=== PATIENT | male | born 1940 | race Caucasian/White ===

== ENCOUNTER 2016-07-30 18:12 | Inpatient (IN) | payer MEDICARE, BC ==
[2016-07-30 21:09] VITALS: BMI 29.1
[2016-07-31] MEDS ORDERED: CALCIUM CARBONATE 500 MG CHEWABLE PO PRN (00:13)
[2016-07-31] MEDS ORDERED: BISACODYL 10 MG SUPP RECTAL PRN (00:14)
[2016-07-31] MEDS ORDERED: ALPRAZolam 0.25 MG TAB PO PRN (00:15)
[2016-07-31] MEDS ORDERED: Acetaminophen-Codeine 300-30mg TAB PO PRN (00:38)
[2016-07-31] MEDS ORDERED: ALBUTEROL NEBULIZED 2.5 MG/3 ML INHALATION PRN (00:38)
[2016-07-31] MEDS ORDERED: ONDANSETRON ODT 4 MG TAB PO PRN (00:38)
[2016-07-31] MEDS ORDERED: MECLIZINE 25 MG TAB PO PRN (00:38)
[2016-07-31 01:36] LABS: Anisocytosis Moderate; Basophils # (A) 0.1 k/uL (0-0.2); Basophils % (A) 1 %; CH 32.3; CHCM 31.6; Eosinophils # (A) 0.2 k/uL (0-0.7); Eosinophils % (A) 2 %; HCT 29.7 % (39.0-53.0); HDW 3.02; HGB 9.4 gm/dL (13.0-17.5); Hypochromasia Slight; Luc # (Auto) 0.16; Luc % (Auto) 2; Lymphocytes # (A) 1.6 k/uL (1.0-4.8); Lymphocytes % (A) 19 %; MCH 32.1 pg (25.0-35.0); MCHC 31.5 g/dL (31.0-37.0); MCV 102.1 fL (80.0-100.0); Macrocytosis Moderate; Mean Platelet Volume 8.4; Monocytes # (A) 0.4 k/uL (0-1.0); Monocytes % (A) 4 %; Neutrophils # (A) 6.2 k/uL (1.3-7.7); Neutrophils % (A) 72 %; RBC 2.91 m/uL (4.30-5.90); RDW 20.7 % (11.5-15.5); WBC 8.5 k/uL (3.8-10.6); WBC (Perox) 9.31
[2016-07-31 01:48] LABS: Anion Gap 6 mmol/L; Blood Urea Nitrogen 26 mg/dL (9-20); Calcium 8.2 mg/dL (8.4-10.2); Carbon Dioxide 27 mmol/L (22-30); Chloride 102 mmol/L (98-107); Glucose 92 mg/dL (74-99); Non-African American GFR(MDRD) >60 (>60 ml/min/1.73 sqM); Potassium 3.8 mmol/L (3.5-5.1); Sodium 135 mmol/L (137-145)
[2016-07-31] MEDS ORDERED: IPRATROPIUM-ALBUTEROL 3 ML NEB INHALATION SCH (02:00)
[2016-07-31] MEDS: SODIUM CHLORIDE 0.9% 1,000 ML IV SCH ×2 (03:00→15:24)
[2016-07-31 06:59] LABS: Anisocytosis Moderate; Basophils # (A) 0.1 k/uL (0-0.2); Basophils % (A) 1 %; CH 32.4; CHCM 31.5; Eosinophils # (A) 0.2 k/uL (0-0.7); Eosinophils % (A) 3 %; HDW 3.01; HGB 9.4 gm/dL (13.0-17.5); Hypochromasia Slight; Luc # (Auto) 0.15; Luc % (Auto) 2; Lymphocytes # (A) 1.3 k/uL (1.0-4.8); Lymphocytes % (A) 18 %; MCH 32.3 pg (25.0-35.0); MCHC 31.4 g/dL (31.0-37.0); MCV 102.7 fL (80.0-100.0); Macrocytosis Moderate; Mean Platelet Volume 8.4; Monocytes # (A) 0.4 k/uL (0-1.0); Monocytes % (A) 6 %; Neutrophils # (A) 5.4 k/uL (1.3-7.7); Neutrophils % (A) 71 %; RBC 2.92 m/uL (4.30-5.90); RDW 20.8 % (11.5-15.5); WBC 7.6 k/uL (3.8-10.6); WBC (Perox) 8.04
[2016-07-31 07:20] LABS: Anion Gap 6 mmol/L; Blood Urea Nitrogen 23 mg/dL (9-20); Calcium 8.2 mg/dL (8.4-10.2); Carbon Dioxide 28 mmol/L (22-30); Chloride 102 mmol/L (98-107); Glucose 88 mg/dL (74-99); Non-African American GFR(MDRD) >60 (>60 ml/min/1.73 sqM); Potassium 3.9 mmol/L (3.5-5.1); Sodium 136 mmol/L (137-145)
[2016-07-31] MEDS ORDERED: TIOTROPIUM 18 MCG/PUFF INHALER INHALATION SCH (08:00)
[2016-07-31] MEDS: IPRATROPIUM-ALBUTEROL 3 ML NEB INHALATION SCH ×3 (08:17→20:56)
[2016-07-31] MEDS: ASPIRIN 325 MG TAB PO SCH (08:21)
[2016-07-31] MEDS: HEPARIN SODIUM,PORCINE 5,000 UNIT/ML 1 ML VIAL SQ SCH ×2 (08:21→20:30)
[2016-07-31] MEDS: PANTOPRAZOLE 40 MG/10 ML VIAL IVP SCH ×2 (08:22→20:30)
[2016-07-31] MEDS: ATORVASTATIN 40 MG TAB PO SCH (08:22)
[2016-07-31] MEDS: SERTRALINE 25 MG TAB PO SCH (08:22)
[2016-07-31] MEDS: GABAPENTIN 300 MG CAP PO SCH (08:22)
[2016-07-31] MEDS ORDERED: NON-FORMULARY DRUG (Omeprazole [Prilosec] 20 MG) PO SCH (09:00)
--- NOTE | 2016-07-31 09:19 | P.CRDCN ---
History of Present Illness Consult date: 07/31/16 Reason for Consult (text): syncope, hypotension Chief complaint: dizziness, syncope History of present illness: This is a pleasant 76-year-old male patient who follows with Dr. Kennedy in the office. 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 Continue the patient 2-3 weeks ago he fell at home after experiencing a dizziness but did not lose consciousness. He did not seek treatment at this time and continues to have ecchymosis to his left lower abdomen. The patient has been residing at a rehab facility at [facility] for approximately 2 weeks following a brief hospitalization for likely congestive heart failure was noticed to have lower extremity edema by a visiting nurse. Apparently yesterday, he was sitting up in his wheelchair visiting with his sister and a common area, says the lights in the room as well as a large fan began making him feel dizzy and he lost consciousness and had an episode of emesis. He does not know whether the emesis occurred prior to passing out or after. Upon presentation to [facility] patient's blood pressure was low at 80/40 and he received 1.5 L of normal saline, his blood pressure improved and was in the 90s systolic. While at [facility] patient did have a CT scan of the head without IV contrast that showed no acute intracranial process also had chest x-ray that showed enlarged cardiac silhouette with mild vascular congestion however his BNP level was not elevated at 41. Laboratory values show hemoglobin of 9.4, BUN 23 and creatinine 1.0. 2 sets of troponins have been negative. According to the patient his last pacemaker interrogation was approximately 3 months ago and as far as he knows there were no issues. He does not recall when his last echocardiogram was but says he likely had a stress test earlier this year upon examination this morning, patient is resting comfortably in bed and denies any further complaints of dizziness or syncope. He denies complaints of chest discomfort, palpitations or edema. Past Medical History Past Medical History: Asthma, Coronary Artery Disease (CAD), Chest Pain / Angina , COPD, Diabetes Mellitus, Eye Disorder, GERD/Reflux, Hypertension, Myocardial Infarction ([place]), Pneumonia, Rheumatoid Arthritis (RA), Skin Disorder Additional Past Medical History / Comment(s): partial blindness rt eye, hx bowel obstruction, hx pancreatitis, freq rashes, diet control diabetic, neuropathy Last Myocardial Infarction Date:: 1993 History of Any Multi-Drug Resistant Organisms: None Reported Past Surgical History: Cholecystectomy, Pacemaker Additional Past Surgical History / Comment(s): Right Carotid endarterectomy, Right knee arthroscopy, henri shoulder rotator cuff, rt cataract Past Anesthesia/Blood Transfusion Reactions: Motion Sickness Type of Cardiac Device: Unknown Device Placement Date:: 1998 Past Psychological History: Depression Smoking Status: Former smoker Past Alcohol Use History: Rare Additional Past Alcohol Use History / Comment(s): quit smoking 1993, smoked 2 PPD for 30 yrs Past Drug Use History: None Reported - Past Family History Mother Family Medical History: No Reported History Medications and Allergies Home Medications Medication Instructions Recorded Confirmed Type Albuterol Inhaler [Ventolin Hfa 2 puff INHALATION RT-Q6H PRN 04/12/14 07/30/16 History Inhaler] Hydrochlorothiazide [Hydrodiuril] 25 mg PO DAILY 04/12/14 07/30/16 History Omeprazole [PriLOSEC] 20 mg PO DAILY 04/12/14 07/30/16 History Losartan [Cozaar] 50 mg PO DAILY 09/19/15 07/30/16 History ALPRAZolam [Xanax] 0.25 mg PO BID PRN 07/30/16 07/30/16 History Acetaminophen-Codeine 300-30mg 1 tab PO Q6H PRN 07/30/16 07/30/16 History [Tylenol #3] Albuterol Nebulized [Ventolin 2.5 mg INHALATION RT-TID PRN 07/30/16 07/30/16 History Nebulized] Aspirin 325 mg PO DAILY 07/30/16 07/30/16 History Atorvastatin [Lipitor] 40 mg PO DAILY 07/30/16 07/30/16 History Bisacodyl [Dulcolax] 5 mg PO DAILY PRN 07/30/16 07/30/16 History Calcium Carbonate [Tums] 1,000 mg PO Q4H PRN 07/30/16 07/30/16 History Gabapentin [Neurontin] 300 mg PO DAILY 07/30/16 07/30/16 History Ipratropium-Albuterol Nebulize 3 ml INHALATION RT-Q6H 07/30/16 07/30/16 History [Duoneb 0.5 mg-3 mg/3 ml Soln] Meclizine [Antivert] 25 mg PO DAILY PRN 07/30/16 07/30/16 History Ondansetron [Zofran ODT] 4 mg SUBLINGUAL Q4H PRN 07/30/16 07/30/16 History Sertraline [Zoloft] 25 mg PO DAILY 07/30/16 07/30/16 History Tiotropium [place] [Spiriva] 1 cap INHALATION RT-DAILY 07/30/16 07/30/16 History Allergies Allergy/AdvReac Type Severity Reaction Status Date / Time influenza virus vaccine, Allergy Unknown Verified 07/30/16 21:50 specific morphine Allergy Unknown Verified 07/30/16 21:50 ketorolac tromethamine AdvReac Severe GI Bleed Verified 07/30/16 21:50 [From Toradol] hydromorphone HCl AdvReac Hallucinati Verified 07/30/16 21:50 [From Dilaudid] ons Physical Exam Vitals: Vital Signs Temp Pulse Pulse Resp BP Pulse Ox 07/31/16 08:29 62 07/31/16 08:17 62 07/31/16 04:00 97.9 F 60 17 103/56 92 L 07/31/16 00:00 97.4 F L 63 16 103/65 96 07/30/16 20:13 97.0 F L 71 17 98/55 98 Intake and Output 07/30/16 07/31/16 07/31/16 22:59 06:59 14:59 Intake Total 280 120 Output Total 350 655 350 Balance -350 -375 -230 Intake: Oral 280 120 Output: Drainage 30 Left Thigh 15 Right Thigh 15 Urine 350 625 350 Other: Voiding Method Indwelling Catheter # Voids 1 Weight 84.5 kg 84.5 kg PHYSICAL EXAMINATION: HEENT: Head is atraumatic, normocephalic. Pupils equal, round. Neck is supple. There is no elevated jugular venous pressure. HEART EXAMINATION: Heart sounds regular, S1 and S2 normal. No murmur or gallop heard. CHEST EXAMINATION: Lungs reveal scattered rhonchi throughout. No chest wall tenderness is noted on palpation or with deep breathing. ABDOMEN: Soft, nontender. Ecchymosis noted to left lower abdomen. Bowel sounds are heard. No organomegaly noted. Indwelling catheter is noted, attached to a leg bag. EXTREMITIES: 2+ peripheral pulses with no evidence of peripheral edema and no calf tenderness noted. Bilateral anterior upper thigh RILEY drains in place. NEUROLOGIC patient is awake, alert and oriented x3. . Results 07/31/16 06:36 07/31/16 06:36 Cardiac Enzymes 07/31/16 Range/Units 06:36 Troponin I <0.012 (0.000-0.034) ng/mL CBC 07/31/16 07/31/16 Range/Units 01:19 06:36 WBC 8.5 7.6 (3.8-10.6) k/uL RBC 2.91 L 2.92 L (4.30-5.90) m/uL Hgb 9.4 L 9.4 L (13.0-17.5) gm/dL Hct 29.7 L 30.0 L (39.0-53.0) % Plt Count 176 173 (150-450) k/uL Comprehensive Metabolic Panel 07/31/16 07/31/16 Range/Units 01:19 06:36 Sodium 135 L 136 L (137-145) mmol/L Potassium 3.8 3.9 (3.5-5.1) mmol/L Chloride 102 102 (98-107) mmol/L Carbon Dioxide 27 28 (22-30) mmol/L BUN 26 H 23 H (9-20) mg/dL Creatinine 1.10 1.00 (0.66-1.25) mg/dL Glucose 92 88 (74-99) mg/dL Calcium 8.2 L 8.2 L (8.4-10.2) mg/dL Current Medications Generic Name Dose Route Start Last Admin Trade Name Freq PRN Reason Stop Dose Admin Acetaminophen 650 mg 07/31/16 00:12 Tylenol Tab PO Q6HR PRN Fever and/ or Pain Acetaminophen/Codeine Phosphate 1 each 07/31/16 00:38 Tylenol #3 PO Q6H PRN Pain Albuterol Sulfate 2.5 mg 07/31/16 00:38 Ventolin Nebulized INHALATION RT-Q6H PRN Shortness Of Breath Albuterol/Ipratropium 3 ml 07/31/16 08:00 07/31/16 08:17 Duoneb 0.5 Mg-3 Mg/3 Ml Soln INHALATION 3 ml RT-TID DOYLE Administration Alprazolam 0.25 mg 07/31/16 00:15 Xanax PO BID PRN Anxiety Aspirin 325 mg 07/31/16 09:00 07/31/16 08:21 Aspirin PO 325 mg DAILY DOYLE Administration Atorvastatin Calcium 40 mg 07/31/16 09:00 07/31/16 08:22 Lipitor PO 40 mg DAILY DOYLE Administration Bisacodyl 10 mg 07/31/16 00:14 Dulcolax RECTAL DAILY PRN Constipation Calcium Carbonate/Glycine 1,000 mg 07/31/16 00:13 Tums PO QID PRN Heartburn Gabapentin 300 mg 07/31/16 09:00 07/31/16 08:22 Neurontin PO 300 mg DAILY DOYLE Administration Heparin Sodium (Porcine) 5,000 unit 07/31/16 09:00 07/31/16 08:21 Heparin SQ 5,000 unit Q12HR DOYLE Administration Sodium Chloride 1,000 mls @ 100 mls/hr 07/31/16 03:15 07/31/16 03:00 Saline 0.9% IV 100 mls/hr .Q10H DOYLE Administration Meclizine HCl 25 mg 07/31/16 00:38 Antivert PO DAILY PRN Nausea/Vertigo Ondansetron HCl 4 mg 07/31/16 00:38 Zofran Odt PO Q4H PRN Nausea Pantoprazole Sodium 40 mg 07/31/16 09:00 07/31/16 08:22 Protonix IVP 40 mg BID DOYLE Administration Sertraline HCl 25 mg 07/31/16 09:00 07/31/16 08:22 Zoloft PO 25 mg DAILY DOYLE Administration Intake and Output 07/30/16 07/31/16 07/31/16 22:59 06:59 14:59 Intake Total 280 120 Output Total 350 655 350 Balance -350 -375 -230 Intake: Oral 280 120 Output: Drainage 30 Left Thigh 15 Right Thigh 15 Urine 350 625 350 Other: Voiding Method Indwelling Catheter # Voids 1 Weight 84.5 kg 84.5 kg 07/31/16 06:36 07/31/16 06:36 Assessment and Plan Plan: Assessment and plan #1 loss of consciousness with emesis #2 hypotension with history of hypertension on multiple antihypertensive medications #3 chronic congestive heart failure, ejection fraction unknown at this time #4 sick sinus syndrome with pacemaker in place #5 Penile cancer with metastases to lymph nodes, status post surgical intervention #6 coronary artery disease From a cardiac standpoint, we will obtain a 2-D echo to assess LV function. We will check a d-dimer. Continue to hold antihypertensive medications at this time and continue IV fluid. Further recommendations to follow. CERNER ANALYST note has been reviewed, I agree with a documented findings and plan of care. Patient was seen and examined.
[2016-07-31] MEDS ORDERED: RX INFO: IV CONTRAST WAS GIVEN 1 EACH MISC MISCELLANE PRN (11:23)
--- NOTE | 2016-07-31 11:39 | P.PN ---
Progress Note - Text this is an addendum to the dictated cardiology consultation. The patient has a known history of coronary artery disease, post permanent pacemaker implantation who presented with a syncopal episode not associated with any chest pain, dyspnea or arrhythmia. Since his admission he is doing well, his blood pressure and heart rate has been stable without any evidence of permanent pacemaker malfunction. He has been followed by Dr. Almazan and according to him has been stable without significant problems. I do not have his prior workup available to me at this point. He recently underwent surgery for penile malignancy at [facility] and has been stable in that regard. He denies any PND orthopnea or peripheral edema. He had the episode of vomiting yesterday but it occurred after his syncopal episode. His d-dimer is mildly elevated, his troponin is negative. His EKG revealed normal sinus with dual chamber pacemaker activity. I will obtain a CT angiogram of the chest to rule out pulmonary embolism, we'll interrogate his pacemaker and I will obtain an echocardiogram with Doppler. Depending on the outcome of this testing further recommendations will be made. Thank you for this consult we will follow with you.
--- NOTE | 2016-07-31 12:37 | CT ---
EXAMINATION TYPE: CT angio chest DATE OF EXAM: 07/31/2016 12:21 PM COMPARISON: Prior CTA chest July 11, 2014. HISTORY: ELEVATED D-DIMER. Shortness of breath with history of pneumonia [address] DLP: 510 mGycm Automated exposure control for dose reduction was used. CONTRAST: CTA scan of the thorax is performed with IV Contrast, patient injected with 100 ML mL of Omnipaque 35 0, pulmonary embolism protocol. MIP images are created and reviewed. FINDINGS: LUNGS: There is background of moderate emphysematous change present bilaterally. There is some subple ural reticulation suggesting atelectatic change and/or mild interstitial edema most pronounced in the lower lungs. No suspicious parenchymal nodule or mass is present bilaterally. No pleural effusion or pneumothorax is seen bilaterally. Tracheobronchial tree is patent. MEDIASTINUM: There is satisfactory enhancement of the pulmonary artery and its branches, there is no CT evidence for pulmonary embolism. There are no greater than 1 cm hilar or mediastinal lymph nodes. There are stable prominent but subcentimeter prevascular, AP window, pericarinal, bilateral hilar, and subcarinal lymph nodes. No cardiomegaly or pericardial effusion is seen. There is redemonstration of multilead pacemaker/AICD. A moderate to large size fixed hiatal hernia is redemonstrated. OTHER: Osseous structures are demineralized. Multilevel spurring in the spine is redemonstrated. IMPRESSION: 1. NO CT EVIDENCE FOR PULMONARY EMBOLISM. 2. Moderate emphysematous change with mild interstitial fibrosis and edema felt present bilaterally. No suspicious focal infiltrate is seen.
[2016-07-31 13:27] LABS: Hemoglobin A1C 5.2 % (4.2-6.1)
--- NOTE | 2016-07-31 14:28 | HP ---
DATE OF ADMISSION: 07/30/2016 CHIEF COMPLAINT: Syncope and dehydration and shock. HISTORY OF PRESENT ILLNESS: This 77-year-old gentleman with a past medical history of multiple medical problems including asthma, CAD, history of chronic obstructive pulmonary disease, diabetes, GERD, hypertension, history of myocardial infarction, history of rheumatoid arthritis, being followed by Dr. Chaparro in [place] area was apparently in a rehab recently. The patient subsequently, patient had recurrent vomiting and patient presented with weakness and syncope to [facility]. The blood pressure 160/40 and 1.5 liters of normal saline was given. The blood pressure improved. The patient was transferred to [facility] direct admission at this time. There is no history of chest pain, no history of palpitation, no history of headache, loss of consciousness or seizures. PAST MEDICAL HISTORY: History of asthma, coronary artery disease, chest pain, COPD, diabetes mellitus, GERD, hypertension, history of myocardial infarction, rheumatoid arthritis, cholecystectomy, pacemaker. Medications prior to admission include: Home medications: 1. Spiriva 1 puff daily. 2. Zoloft 25 mg p.o. daily. 3. Zofran 4 mg sublingual p.r.n. 4. Prilosec 20 mg p.o. daily. 5. Antivert 25 mg daily p.r.n. 6. Cozaar 50 mg p.o. daily. 7. DuoNeb q.i.d. q.6. 8. HydroDIURIL 25 mg p.o. daily. 9. Neurontin 300 mg daily. 10. TUMS 1000 mg q.4 p.r.n. 11. Dulcolax 5 mg daily. 12. Lipitor 40 mg p.o. daily. 13. Aspirin 320 mg p.o. daily. 14. Ventolin 2.5 t.i.d. p.r.n. 15. Ventolin HFA 2 puffs q.6 p.r.n. 16. Tylenol #3 one tablet q6h p.r.n. 17. Xanax 0.25 b.i.d. p.r.n. ALLERGIES ARE INFLUENZA VIRUS, MORPHINE, KETOROLAC, DILAUDID. FAMILY HISTORY: history of heart disease and strokes in the family. SOCIAL HISTORY: Previous history of smoking, occasional alcohol intake. REVIEW OF SYSTEMS: ENT: Diminished hearing, diminished vision. CARDIOVASCULAR: No angina or palpitations. RESPIRATORY: As mentioned earlier. : As mentioned earlier. GI: No nausea. No vomiting. Allergy/immunology: No asthma or hayfever. MUSCULOSKELETAL: As mentioned earlier. HEMATOLOGY/ONCOLOGY: No asthma or hayfever. ENDOCRINE: No history of diabetes mellitus. No hypothyroidism. CONSTITUTIONAL: As mentioned earlier. DERMATOLOGY: Negative. RHEUMATOLOGY: Negative. PSYCHIATRY: As mentioned earlier. PHYSICAL EXAMINATION: Alert and oriented times two. Pulse 71. Blood pressure 98/50. Respiratory rate 17, temperature 97 degrees, pulse ox 98% on 2 L HEENT: Conjunctivae normal. Oral mucosa moist. NECK: No jugular venous distention. No carotid bruit. No lymph node enlargement. CARDIOVASCULAR: S1, S2 muffled. No S3, no S4. RESPIRATORY: Breath sounds diminished at the bases. No rhonchi. No crackles. ABDOMEN: Soft, nontender. No mass palpable. No guarding or rigidity. LEGS: No edema. No swelling. CENTRAL NERVOUS SYSTEM: Diffusely weak. LYMPHATICS: No lymph nodes palpable in the neck, axillae or groin. SKIN: No ulcer, rashes or bleeding. Joints: No active deformity. LABS: Not available. ASSESSMENT: 1. Syncope, possibly secondary from orthostatic hypotension. 2. Severe hypotension with hypovolemic shock secondary to dehydration. 3. Incessant vomiting, possible acute gastritis. 4. Generalized gait dysfunction. 5. History of asthma. 6. History of chronic obstructive pulmonary disease. 7. History of coronary artery disease. 8. Diabetes mellitus type 2. 9. Gastroesophageal reflux disease. 10. Hypertension. 11. Myocardial infarction. 12. History of pneumonia. 13. History of rheumatoid arthritis. 14. History of partial blindness. 15. History of pancreatitis. 16. Bowel resection. 17. History of cholecystectomy. 18. History of pacemaker. 19. History of right carotid endarterectomy. 20. History of depression. 21. History of remote history of nicotine dependence. 22. FULL CODE. RECOMMENDATIONS AND DISCUSSION: In this 76-year-old gentleman who presented with multiple complex medical issues, we will monitor the patient closely. Continue the medications. Continue symptomatic treatment. Continue with hydration, baseline labs. Repeat labs. Otherwise, consult cardiology to rule out the possibility of any acute coronary syndrome. Other than that, continue with the rest of the medications. Hold blood pressure medications at this time. Guarded prognosis because of multiple complex medical issues. Further recommendations to follow. A copy of dictation being forwarded to Dr. Chaparro who is the primary physician.
--- NOTE | 2016-07-31 16:06 | ECHOF ---
Referral Reason:syncope MEASUREMENTS -------- HEIGHT: 170.2 cm WEIGHT: 84.4 kg BP: 104/55 RVIDd: 3.8 cm (< 3.3) IVSd: 1.1 cm (0.6 - 1.1) LVIDd: 4.5 cm (3.9 - 5.3) LVPWd: 1.0 cm (0.6 - 1.1) IVSs: 1.3 cm LVIDs: 3.2 cm LVPWs: 1.4 cm LA Diam: 3.3 cm (2.7 - 3.8) LAESV Index (A-L): 39.74 ml/m Ao Diam: 3.1 cm (2.0 - 3.7) AV Cusp: 2.4 cm (1.5 - 2.6) MV EXCURSION: 16.269 mm (> 18.000) MV EF SLOPE: 60 mm/s (70 - 150) EPSS: 0.4 cm MV E James: 1.03 m/s MV DecT: 223 ms MV A James: 1.02 m/s MV E/A Ratio: 1.00 AV maxP.70 mmHg AV meanP.49 mmHg RAP: 5.00 mmHg RVSP: 57.46 mmHg FINDINGS -------- Sinus rhythm. Pacerwire seen in RV and RA. This was a technically good study. The left ventricular size is normal. There is borderline concentric left ventricular hypertrophy. Overall left ventricular systolic function is normal with, an EF between 55 - 60 %. The right ventricle is mild to moderately enlarged. LA is moderately dilated 34-39 ml/m2 The right atrium is normal in size. Aortic valve is trileaflet and is mildly thickened. Peak/mean gradient across the Aortic Valve is 11.70mmHg / 5.49mmHg. Mild mitral annular calcification present. Mild mitral regurgitation is present. Mild tricuspid regurgitation present. There is moderate pulmonary hypertension. The right ventricular systolic pressure, as measured by Doppler, is 57.46mmHg. Moderate pulmonic regurgitation. The aortic root size is normal. Normal inferior vena cava with normal inspiratory collapse consistent with estimated right atrial pressure of 5 mmHg. There is no pericardial effusion. CONCLUSIONS -------- 1. Sinus rhythm. 2. Mild mitral annular calcification present. 3. Mild mitral regurgitation is present. 4. Mild tricuspid regurgitation present. 5. There is moderate pulmonary hypertension. 6. Moderate pulmonic regurgitation. 7. The aortic root size is normal. 8. Normal inferior vena cava with normal inspiratory collapse consistent with estimated right atrial pressure of 5 mmHg. 9. There is no pericardial effusion. 10. Pacerwire seen in RV and RA. 11. This was a technically good study. 12. There is borderline concentric left ventricular hypertrophy. 13. Overall left ventricular systolic function is normal with, an EF between 55 - 60 %. 14. The right ventricle is mild to moderately enlarged. 15. LA is moderately dilated 34-39 ml/m2 16. Aortic valve is trileaflet and is mildly thickened. 17. Peak/mean gradient across the Aortic Valve is 11.70mmHg / 5.49mmHg. CLERICAL ASSIGNER: Mai Champagne RDCS
[2016-07-31] MEDS: ACETAMINOPHEN TAB 325 MG TAB PO PRN ×2 (16:39→23:30)
[2016-07-31 18:48] LABS: Appearance,Urine Clear (Clear); Bilirubin,Urine Negative (Negative); Glucose,Urine (UA) Negative (Negative); Ketones,Urine Negative (Negative); Leukocyte Esterase,Urine Negative (Negative); Mucus,Urine Rare /hpf; Nitrite,Urine Negative (Negative); PH, Urine 5.5 (5.0-8.0); Particle Count 2065; Protein,Urine 1+ (Negative); RBC,Urine 53 /hpf (0-5); Specific Gravity,Urine 1.032 (1.001-1.035); UA Billing (MACRO vs. MICRO) MICRO; Urobilinogen,Urine <2.0 mg/dL (<2.0); WBC,Urine 26 /hpf (0-5)
[2016-08-01] MEDS: SODIUM CHLORIDE 0.9% 1,000 ML IV SCH ×3 (02:29→21:31)
[2016-08-01 07:47] LABS: Anisocytosis Moderate; Basophils # (A) 0.1 k/uL (0-0.2); Basophils % (A) 1 %; CH 32.3; CHCM 31.4; Eosinophils # (A) 0.2 k/uL (0-0.7); Eosinophils % (A) 3 %; HCT 29.6 % (39.0-53.0); HDW 3.05; HGB 9.2 gm/dL (13.0-17.5); Hypochromasia Slight; Luc # (Auto) 0.15; Luc % (Auto) 2; Lymphocytes # (A) 1.3 k/uL (1.0-4.8); Lymphocytes % (A) 19 %; MCHC 31.2 g/dL (31.0-37.0); MCV 102.6 fL (80.0-100.0); Macrocytosis Moderate; Monocytes # (A) 0.3 k/uL (0-1.0); Monocytes % (A) 5 %; Neutrophils # (A) 4.8 k/uL (1.3-7.7); Neutrophils % (A) 70 %; RBC 2.88 m/uL (4.30-5.90); RDW 20.6 % (11.5-15.5); WBC 6.9 k/uL (3.8-10.6); WBC (Perox) 7.24
[2016-08-01 07:55] LABS: Anion Gap 7 mmol/L; Blood Urea Nitrogen 16 mg/dL (9-20); Calcium 7.6 mg/dL (8.4-10.2); Carbon Dioxide 26 mmol/L (22-30); Chloride 107 mmol/L (98-107); Glucose 84 mg/dL (74-99); Non-African American GFR(MDRD) >60 (>60 ml/min/1.73 sqM); Potassium 3.9 mmol/L (3.5-5.1); Sodium 140 mmol/L (137-145)
[2016-08-01] MEDS: IPRATROPIUM-ALBUTEROL 3 ML NEB INHALATION SCH ×3 (08:11→19:25)
[2016-08-01] MEDS: PANTOPRAZOLE 40 MG TABLET PO SCH ×2 (09:49→21:32)
[2016-08-01] MEDS: SERTRALINE 25 MG TAB PO SCH (09:49)
[2016-08-01] MEDS: GABAPENTIN 300 MG CAP PO SCH (09:49)
[2016-08-01] MEDS: ATORVASTATIN 40 MG TAB PO SCH (09:49)
[2016-08-01] MEDS: ASPIRIN 325 MG TAB PO SCH (09:49)
[2016-08-01] MEDS: HEPARIN SODIUM,PORCINE 5,000 UNIT/ML 1 ML VIAL SQ SCH ×2 (09:50→21:31)
--- NOTE | 2016-08-01 10:32 | PN ---
DATE OF SERVICE: 07/31/2016 This 76-year-old gentleman admitted with syncope and dehydration being closely monitored. The patient also had hypotension as well. The chest CT was done to rule out the possibility of pulmonary embolism, which showed moderate and mild interstitial fibrosis. No infiltrate was noted. 2-D echo with Doppler was also recommend. Cardiology is following the patient closely. The 2-D echocardiogram showed multiple valvular abnormalities and moderate pulmonary hypertension, moderate pulmonary regurgitation. Ejection fraction found to be 50 to 60%. LA was moderately dilated. PAST MEDICAL HISTORY: Reviewed. REVIEW OF SYSTEMS: CARDIOVASCULAR: No angina. RESPIRATORY: As mentioned earlier. GI: As mentioned earlier. : No dysuria. NERVOUS SYSTEM: No numbness or weakness. Current medications were reviewed and include: 1. Tylenol 650 q.6 p.r.n. 2. Tylenol #3. 3. Ventolin q.6. 4. DuoNeb t.i.d. and p.r.n. 5. Xanax 0.5 b.i.d. 6. Aspirin 325 mg. 7. Lipitor 40 mg daily. 8. Neurontin 300 mg daily. 9. Heparin subcu b.i.d. 10. Antivert. 11. Protonix. 12. Zoloft. PHYSICAL EXAMINATION: The patient is alert and oriented x2. Pulse 68, blood pressure 114/58, respirations 16, temperature 97 degrees, on 2-L. HEENT: Conjunctivae normal. NECK: No jugular venous distention. CARDIOVASCULAR: S1 and S2, muffled. RESPIRATORY: Breath sounds diminished at the bases. A few scattered rhonchi and crackles. ABDOMEN: Soft, nontender. No mass palpable. LEGS: No edema, no swelling. NERVOUS SYSTEM: Diffusely weak. LABS: WBC 7.6, hemoglobin 9.9, MCV 102, sodium is 136. Calcium is 8.2. ASSESSMENT: 1. Syncope, possibly secondary hypotension. 2. Severe hypotension with hypovolemia with shock secondary to dehydration. 3. Incessant vomiting, possible acute gastritis. 4. Generalized gait dysfunction. 5. History of asthma, chronic obstructive pulmonary disease. 6. History of coronary artery disease. 7. Diabetes education type 2. 8. Gastroesophageal reflux disease. 9. Hypertension. 10. Myocardial infarction. 11. History of recent penile cancer and surgery. 12. History of sick sinus syndrome and pacemaker. 13. History of pneumonia. 14. History of rheumatoid arthritis. 15. History of partial blindness. 16. History of pancreatitis. 17. History of bowel resection. 18. History of cholecystectomy. 19. History of pacemaker. 20. History of right carotid endarterectomy. 21. History of depression. 22. Remote history of nicotine dependence. 23. FULL CODE. RECOMMENDATIONS AND DISCUSSION: In this 76-year-old gentleman who presented with multiple complex medical issues, we will monitor the patient closely, continue the current medications. Continue symptomatic treatment. Otherwise, at this time I would recommend continue with IV hydration, increase ambulation, otherwise, cardiology input appreciated. I will also order a UA with micro. Prognosis guarded. Further recommendations to follow. MTDD
[2016-08-01 15:06] VITALS: RESP 16
--- NOTE | 2016-08-01 16:22 | PN ---
Mr. Resendiz is a 76-year-old male who presented with syncopal episode. He is feeling much better today. He has no further symptoms of syncope. On the monitor, he has no evidence of tachy or bradyarrhythmia. Interrogation of his device was done today, revealed normal sensing and pacing. He is ambulating in the room without difficulty. He denies any palpitation. No syncope. He continues to be at this time on albuterol, aspirin, Lipitor 40 mg daily. PHYSICAL EXAMINATION: Blood pressure 126/60 with a heart in the 70s. LUNGS: Clear. HEART: Regular rate and rhythm. S1 and S2, no S3, no rub appreciated. ABDOMEN: Soft and nontender. EXTREMITIES: No edema. Lab data revealed BUN and creatinine 16 and 0.9. Potassium 3.9. Hemoglobin 9.2. He had an echocardiogram done that showed a preserved left ventricular size and systolic function with mild mitral and tricuspid regurgitation and moderate pulmonary hypertension. IMPRESSION: 1. Syncopal episode of unclear etiology. No evidence of pacemaker malfunction and no evidence of tachyarrhythmia. 2. Status post permanent pacemaker implantation. 3. History of ( ) cancer with metastasis status post recent surgery. 4. History of coronary artery disease, stable. RECOMMENDATIONS: From the cardiac standpoint, he is stable on his present regimen. We will continue to increase his level of activity. His losartan is on hold and we will follow his blood pressure and depending on that, further recommendation to be made. If he remains stable, I would expect he should be able to be discharged home in the next 24 hours.
--- NOTE | 2016-08-01 20:34 | US ---
EXAMINATION TYPE: US venous doppler duplex LE LT DATE OF EXAM: 08/01/2016 8:23 PM COMPARISON: NONE CLINICAL HISTORY: Left thigh redness, warmth, edema, left thigh drainage tube. SIDE PERFORMED: VESSELS IMAGED: External Iliac Vein (EIV) Common Femoral Vein Deep Femoral Vein Greater Saphenous Vein * Femoral Vein Popliteal Vein Small Saphenous Vein * Proximal Calf Veins (* superficial vessels) TECHNOLOGIST IMPRESSION: Left Leg: Appears negative for DVT. At area of GSV, drainage tube seen in large anechoic lesion. IMPRESSION: In the left upper thigh region there is an cystic fluid collection that measures at leas t 10 cm in length and 2.5 cm in thickness. This is consistent with seroma or hematoma. There was no b lood flow. There is no evidence of deep venous thrombosis in both legs in the femoral and popliteal veins.
[2016-08-02] MEDS: SODIUM CHLORIDE 0.9% 1,000 ML IV SCH (02:00)
[2016-08-02] MEDS: IPRATROPIUM-ALBUTEROL 3 ML NEB INHALATION SCH ×2 (07:43→13:57)
[2016-08-02] MEDS: SERTRALINE 25 MG TAB PO SCH (07:52)
[2016-08-02] MEDS: PANTOPRAZOLE 40 MG TABLET PO SCH (07:52)
[2016-08-02] MEDS: ASPIRIN 325 MG TAB PO SCH (07:52)
[2016-08-02] MEDS: ATORVASTATIN 40 MG TAB PO SCH (07:52)
[2016-08-02] MEDS: HEPARIN SODIUM,PORCINE 5,000 UNIT/ML 1 ML VIAL SQ SCH (07:52)
[2016-08-02] MEDS: GABAPENTIN 300 MG CAP PO SCH (07:52)
[2016-08-02 07:54] LABS: Anisocytosis Moderate; Basophils # (A) 0.1 k/uL (0-0.2); Basophils % (A) 1 %; CH 32.2; CHCM 31.2; Eosinophils # (A) 0.2 k/uL (0-0.7); Eosinophils % (A) 4 %; HCT 28.2 % (39.0-53.0); HDW 3.05; Hypochromasia Moderate; Luc % (Auto) 2; Lymphocytes # (A) 1.2 k/uL (1.0-4.8); Lymphocytes % (A) 21 %; MCH 32.9 pg (25.0-35.0); MCHC 31.9 g/dL (31.0-37.0); MCV 103.2 fL (80.0-100.0); Macrocytosis Marked; Mean Platelet Volume 8.1; Monocytes # (A) 0.3 k/uL (0-1.0); Monocytes % (A) 5 %; Neutrophils # (A) 3.8 k/uL (1.3-7.7); Neutrophils % (A) 68 %; RBC 2.73 m/uL (4.30-5.90); RDW 20.7 % (11.5-15.5); WBC 5.6 k/uL (3.8-10.6); WBC (Perox) 5.92
[2016-08-02 08:03] LABS: Anion Gap 7 mmol/L; Blood Urea Nitrogen 10 mg/dL (9-20); Calcium 7.6 mg/dL (8.4-10.2); Carbon Dioxide 26 mmol/L (22-30); Chloride 110 mmol/L (98-107); Glucose 87 mg/dL (74-99); Non-African American GFR(MDRD) >60 (>60 ml/min/1.73 sqM); Potassium 4.2 mmol/L (3.5-5.1); Sodium 143 mmol/L (137-145)
[2016-08-02 10:22] LABS: Manual Review Performed
--- NOTE | 2016-08-02 10:52 | PN ---
DATE OF SERVICE: 08/01/2016 This 77-year-old gentleman was admitted with syncope and dehydration, being closely monitored. No chest pain, no palpitation, no fever. The patient is. The venous Doppler done today showed negative for any DVTs. On exam alert and oriented x3. Pulse is 79, blood pressure 152/70, respirations 16, temperature 97.9, pulse ox 94% on room air. HEENT: Conjunctivae normal. NECK: No jugular venous distention. CARDIOVASCULAR: S1 and S2, muffled. RESPIRATORY: Breath sounds diminished at the bases. No rhonchi, no crackles.. ABDOMEN: Soft, nontender. No mass palpable. LEGS: No edema, no swelling. NERVOUS SYSTEM: No focal deficits. Mild diffuse weakness.. LABS: WBC 6, hemoglobin 9.2, UA noted. ASSESSMENT: 1. Syncope, possibly secondary hypotension. 2. Severe hypotension with hypovolemic shock secondary to dehydration. and diminished p.o. intake. 3. Incessant vomiting, possible acute gastritis, present on admission. 4. Generalized gait dysfunction. 5. History of asthma, chronic obstructive pulmonary disease. 6. History of coronary artery disease. 7. Diabetes education type 2. 8. Gastroesophageal reflux disease. 9. Hypertension. 10. History of myocardial infarction. 11. History of recent penile cancer and surgery. 12. History of sick sinus syndrome and pacemaker. 13. History of pneumonia. 14. History of rheumatoid arthritis. 15. History of partial blindness. 16. History of pancreatitis. 17. History of bowel resection. 18. History of cholecystectomy. 19. History of pacemaker. 20. History of right carotid endarterectomy. 21. History of depression. 22. Remote history of nicotine dependence. 23. FULL CODE. RECOMMENDATIONS AND DISCUSSION: Recommend to continue the current medications, continue symptomatic treatment, continue with IV fluids, continue with monitoring. Closely follow with Cardiology. Guarded prognosis. Further recommendations to follow. MTDD
[2016-08-02 13:42] VITALS: BP 126/69; TEMP 97.6
[2016-08-02 14:12] VITALS: PULSE 64
--- NOTE | 2016-08-02 15:02 | DS ---
DATE OF ADMISSION: 07/30/2016 DATE OF DISCHARGE: FINAL DIAGNOSES: 1. Syncope, possibly secondary to hypotension. 2. Severe hypertension, hypovolemic shock secondary to dehydration, diminished p.o. intake. 3. Vomiting possible acute gastritis present on admission. 4. Generalized gait dysfunction. 5. Asthma, 6. Chronic obstructive pulmonary disease. 7. History of coronary artery disease. 8. Type 2 diabetes mellitus. 9. History of gastroesophageal reflux disease. 10. Hypertension. 11. History of myocardial infarction. 12. History of recent penile cancer surgery. 13. History of sick sinus syndrome and pacemaker. 14. History of pneumonia. 15. Rheumatoid arthritis. 16. History of partial blindness. 17. History of pancreatitis. 18. History of bowel resection. 19. History of cholecystectomy. 20. History of pacemaker. 21. History of right carotid endarterectomy. 22. History of depression. 23. Remote history of nicotine dependence. 24. FULL CODE. DISCHARGE DISPOSITION: The patient will be discharged in a stable condition with guarded prognosis. Total time taken 35 minutes. Discharge cleared at this time. The patient is stable. HISTORY OF PRESENT ILLNESS: This 77-year-old gentleman with a past medical history of multiple medical problems, recent resident of [facility] was admitted with underwent rehab in the [facility] and was admitted with syncope and severe dehydration, hypovolemia and other multiple medical problems as mentioned earlier. Treated symptomatically. Patient was seen by cardiology. Otherwise venous Doppler was Negative. Chest CT was also showing no evidence of pulmonary embolism. On exam, vital signs stable. CARDIOVASCULAR: S1, S2 muffled. RESPIRATORY: Abdomen: Soft, nontender. CENTRAL NERVOUS SYSTEM: No focal deficits. This patient will be discharged in stable condition with guarded prognosis with the following advice and medications: 1. Diet is cardiac. 2. Activity limited until follow up. 3. Follow-up with the primary physician in the outpatient setting. 4. Follow with [facility]. 5. Follow up with Dr. Chaparro as advised. 6. Medications will be Xanax 0.5 b.i.d. 7. Tylenol #3 q.6 p.r.n. 8. Albuterol updrafts q.i.d. and p.r.n. 9. Ecotrin 320 mg daily. 10. Lipitor 40 mg daily. 11. Dulcolax 12. Ecotrin 81 mg daily. 14. TUMS 15. Neurontin 300 mg daily. 16. Albuterol/Atrovent updrafts q.i.d. and p.r.n. 17. Antivert 25 mg p.r.n. 18. Zofran 4 mg p.r.n. 19. Protonix 40 mg p.o. b.i.d. 20. Zoloft 25 mg daily. 21. Spiriva 1 puff daily. MTDD
== END 2016-08-02 18:40 | DRG 872 ==
LOC: 6SEL 20:03 → 3SUR 08-01 14:13
PROVIDERS: ADMIT Hospitalist; ATTEND Hospitalist
DX: R57.1 Hypovolemic shock (principal); C77.9 Secondary and unspecified malignant neoplasm of lymph node, unspecified; E11.40 Type 2 diabetes mellitus with diabetic neuropathy, unspecified; I50.9 Heart failure, unspecified; I11.0 Hypertensive heart disease with heart failure; I27.2 Other secondary pulmonary hypertension; J44.9 Chronic obstructive pulmonary disease, unspecified; C60.9 Malignant neoplasm of penis, unspecified; M06.9 Rheumatoid arthritis, unspecified; I37.1 Nonrheumatic pulmonary valve insufficiency; K29.00 Acute gastritis without bleeding; R26.9 Unspecified abnormalities of gait and mobility; J45.909 Unspecified asthma, uncomplicated; I25.10 Atherosclerotic heart disease of native coronary artery without angina pectoris; K21.9 Gastro-esophageal reflux disease without esophagitis; I10 Essential (primary) hypertension; I25.2 Old myocardial infarction; H54.0 Blindness, both eyes; Z87.01 Personal history of pneumonia (recurrent); Z90.49 Acquired absence of other specified parts of digestive tract; Z95.0 Presence of cardiac pacemaker; Z87.891 Personal history of nicotine dependence; Z79.899 Other long term (current) drug therapy; F32.9 Major depressive disorder, single episode, unspecified; Z98.41 Cataract extraction status, right eye; Z88.5 Allergy status to narcotic agent; Z88.7 Allergy status to serum and vaccine; Z88.8 Allergy status to other drugs, medicaments and biological substances; Z79.82 Long term (current) use of aspirin
CPT/HCPCS: 71275; 80048; 81001; 83036; 84484; 85025; 85379; 93306; 94640

== ENCOUNTER 2017-12-03 08:20 | Observation (INO) | payer OTHER, MEDICARE ==
--- NOTE | 2017-12-03 08:40 | ED ---
General Adult HPI - General Chief complaint: Shortness of Breath Stated complaint: Chest Pain Time Seen by Provider: 12/03/17 08:20 Source: patient, EMS, RN notes reviewed Mode of arrival: EMS Limitations: no limitations - History of Present Illness Initial comments: This is a 77-year-old male who presents emergency department from [facility]. Patient states he went there because he had some chest pain throughout the night and some leg swelling in the right leg in particular. Patient states for a went to bed he had a couple hours of chest pain but it subsided slightly went to bed. Patient states he woke up about 2:00 in the morning and he was having some episodes of chest pain and he noted his right leg to be quite swollen and having some right calf pain so he decided to go to the emergency department. At [place] the evaluated him and determined that he needed further evaluation by hydroelectric station operator and sent the patient to [facility]. Patient denies any chest pain currently. Patient denies any difficulty breathing shortness breath per patient denies any episodes diaphoresis. Patient denies nausea vomiting diarrhea. Patient denies headache patient denies numbness weakness. Patient denies lightheadedness dizziness or near syncopal episode. Patient denies any abdominal pain patient denies nausea vomiting or diarrhea. - Related Data Home Medications Medication Instructions Recorded Confirmed Atorvastatin [Lipitor] 40 mg PO DAILY 07/30/16 07/30/16 Bisacodyl [Dulcolax] 5 mg PO DAILY PRN 07/30/16 07/30/16 Calcium Carbonate [Tums] 1,000 mg PO Q4H PRN 07/30/16 07/30/16 Gabapentin [Neurontin] 300 mg PO DAILY 07/30/16 07/30/16 Ipratropium-Albuterol Nebulize 3 ml INHALATION RT-Q6H 07/30/16 07/30/16 [Duoneb 0.5 mg-3 mg/3 ml Soln] Meclizine [Antivert] 25 mg PO DAILY PRN 07/30/16 07/30/16 Ondansetron [Zofran ODT] 4 mg SUBLINGUAL Q4H PRN 07/30/16 07/30/16 Sertraline [Zoloft] 25 mg PO DAILY 07/30/16 07/30/16 Tiotropium [place] [Spiriva] 1 cap INHALATION RT-DAILY 07/30/16 07/30/16 Previous Rx's Medication Instructions Recorded ALPRAZolam [Xanax] 0.25 mg PO BID PRN #10 tab 08/02/16 Acetaminophen-Codeine 300-30mg 1 tab PO Q6H PRN #20 tab 08/02/16 [Tylenol w/codeine #3] Albuterol Nebulized [Ventolin 2.5 mg INHALATION Q4H PRN #0 08/02/16 Nebulized] Aspirin EC [Ecotrin Low Dose] 81 mg PO DAILY #1 tablet. 08/02/16 Pantoprazole [Protonix] 40 mg PO BID tablet. 08/02/16 Allergies Allergy/AdvReac Type Severity Reaction Status Date / Time influenza virus vaccine, Allergy Unknown Verified 12/03/17 08:31 specific morphine Allergy Unknown Verified 12/03/17 08:31 ketorolac tromethamine AdvReac Severe GI Bleed Verified 12/03/17 08:31 [From Toradol] hydromorphone HCl AdvReac Hallucinati Verified 12/03/17 08:31 [From Dilaudid] ons Review of Systems ROS Statement: Those systems with pertinent positive or pertinent negative responses have been documented in the HPI. ROS Other: All systems not noted in ROS Statement are negative. Past Medical History Past Medical History: Asthma, Coronary Artery Disease (CAD), Chest Pain / Angina , COPD, Diabetes Mellitus, Eye Disorder, GERD/Reflux, Hypertension, Myocardial Infarction ([place]), Pneumonia, Rheumatoid Arthritis (RA), Skin Disorder Additional Past Medical History / Comment(s): partial blindness rt eye, hx bowel obstruction, hx pancreatitis, freq rashes, diet control diabetic, neuropathy Last Myocardial Infarction Date:: 1993 History of Any Multi-Drug Resistant Organisms: None Reported Past Surgical History: Cholecystectomy, Pacemaker Additional Past Surgical History / Comment(s): Right Carotid endarterectomy, Right knee arthroscopy, henri shoulder rotator cuff, rt cataract Past Anesthesia/Blood Transfusion Reactions: Motion Sickness Type of Cardiac Device: Unknown Device Placement Date:: 1998 Past Psychological History: Depression Smoking Status: Former smoker Past Alcohol Use History: Rare Past Drug Use History: None Reported - Past Family History Mother Family Medical History: No Reported History General Exam - General Exam Comments Initial Comments: GENERAL: Patient is well-developed and well-nourished. Patient is nontoxic and well- hydrated and is in mild distress. ENT: Neck is soft and supple. No significant lymphadenopathy is noted. Oropharynx is clear. Moist mucous membranes. Neck has full range of motion without eliciting any pain. EYES: The sclera were anicteric and conjunctiva were pink and moist. Extraocular movements were intact and pupils were equal round and reactive to light. Eyelids were unremarkable. PULMONARY: Unlabored respirations. Good breath sounds bilaterally. No audible rales rhonchi or wheezing was noted. CARDIOVASCULAR: There is a regular rate and rhythm without any murmurs gallops or rubs. ABDOMEN: Soft and nontender with normal bowel sounds. No palpable organomegaly was noted. There is no palpable pulsatile mass. SKIN: Skin is clear with no lesions or rashes and otherwise unremarkable. NEUROLOGIC: Patient is alert and oriented x3. Cranial nerves II through XII are grossly intact. Motor and sensory are also intact. Normal speech, volume and content. Symmetrical smile. MUSCULOSKELETAL: Normal extremities with adequate strength and full range of motion. Right leg has some edema and calf tenderness. LYMPHATICS: No significant lymphadenopathy is noted PSYCHIATRIC: Normal psychiatric evaluation. Limitations: no limitations Course Vital Signs 12/03/17 08:22 Temperature 97.5 F L Pulse Rate 62 Respiratory 18 Rate Blood Pressure 140/65 O2 Sat by Pulse 97 Oximetry Medical Decision Making - Medical Decision Making EKG shows a paced rhythm at [address] interval 280 QRS is 82 QT interval 422 QTC is 422. Patient's EKG shows no ST segment elevation or depression. I reviewed the labs EKG and x-rays from the other facility. I repeated the troponin and it was normal. Ultrasound of the leg showed no acute DVT. - Lab Data Lab Results 12/03/17 Range/Units 08:37 Troponin I <0.012 (0.000-0.034) ng/mL Disposition Clinical Impression: Chest pain, Pedal edema Disposition: ADMITTED IP TO THIS HOSP Referrals: Arjun Coelho MD [Primary Care Provider] - 1-2 days Time of Disposition: 09:50
[2017-12-03] MEDS ORDERED: NITROGLYCERIN SL TABS 0.4 MG TAB SUBLINGUAL PRN (09:50)
--- NOTE | 2017-12-03 10:13 | US ---
EXAMINATION TYPE: US venous doppler duplex LE RT DATE OF EXAM: 12/03/2017 10:07 AM COMPARISON: NONE CLINICAL HISTORY: Pain. SIDE PERFORMED: Right TECHNIQUE: The lower extremity deep venous system is examined utilizing real time linear array sonog dalia with graded compression, doppler sonography and color-flow sonography. VESSELS IMAGED: External Iliac Vein (EIV) Common Femoral Vein Deep Femoral Vein Greater Saphenous Vein * Femoral Vein Popliteal Vein Small Saphenous Vein * Proximal Calf Veins (* superficial vessels) Right Leg: Negative for DVT No popliteal fossa lesion is seen. IMPRESSION: THIS EXAMINATION IS NEGATIVE FOR DVT IN THE RIGHT LEG.
[2017-12-03 10:24] VITALS: TEMP 98.3
[2017-12-03 11:50] VITALS: BP 134/73; PULSE 53; RESP 17; BMI 30.5
[2017-12-03] MEDS ORDERED: NITROGLYCERIN OINT 1 INCH/GM PACKET TOPICAL SCH (12:00)
[2017-12-03 15:08] LABS: Creatine Kinase 60 U/L (55-170)
[2017-12-03 15:22] LABS: Creatine Kinase MB 1.3 ng/mL (0.0-2.4); Troponin I <0.012 ng/mL (0.000-0.034)
--- NOTE | 2017-12-03 15:26 | P.DS ---
Providers Date of admission: 12/03/17 09:50 Attending physician: Lb Rojo Consults: 12/03/17 09:50 Consult Physician Urgent Consulting Provider: [facility] Consult Reason/Comments: Chest pain Do you want consulting provider notified?: Yes Primary care physician: Arjun Coelho MD Hospital Course: as mentioned in HPI Plan - Discharge Summary Discharge Rx Participant: No New Discharge Prescriptions: No Action Atorvastatin [Lipitor] 40 mg PO DAILY Tiotropium [place] [Spiriva] 1 cap INHALATION RT-DAILY Aspirin EC [Ecotrin Low Dose] 81 mg PO DAILY #1 tablet. Albuterol Nebulized [Ventolin Nebulized] 2.5 mg INHALATION RT-Q4H PRN PRN Reason: Shortness Of Breath ALPRAZolam [Xanax] 0.5 mg PO DAILY Albuterol Inhaler [Ventolin Hfa Inhaler] 1 - 2 puff INHALATION RT-Q6H PRN PRN Reason: Shortness Of Breath Sertraline [Zoloft] 100 mg PO DAILY Omeprazole 20 mg PO DAILY Furosemide [Lasix] 20 mg PO DAILY Potassium Chloride [K-Tab ER] 10 meq PO DAILY Discharge Medication List Atorvastatin [Lipitor] 40 mg PO DAILY 07/30/16 [History] Tiotropium [place] [Spiriva] 1 cap INHALATION RT-DAILY 07/30/16 [History] Aspirin EC [Ecotrin Low Dose] 81 mg PO DAILY #1 tablet. 08/02/16 [Rx] ALPRAZolam [Xanax] 0.5 mg PO DAILY 12/03/17 [History] Albuterol Inhaler [Ventolin Hfa Inhaler] 1 - 2 puff INHALATION RT-Q6H PRN [History] Albuterol Nebulized [Ventolin Nebulized] 2.5 mg INHALATION RT-Q4H PRN 12/03/17 [ History] Furosemide [Lasix] 20 mg PO DAILY 12/03/17 [History] Omeprazole 20 mg PO DAILY 12/03/17 [History] Potassium Chloride [K-Tab ER] 10 meq PO DAILY 12/03/17 [History] Sertraline [Zoloft] 100 mg PO DAILY 12/03/17 [History] Follow up Appointment(s)/Referral(s): Arjun Coelho MD [Primary Care Provider] - 3 Days Ton Almazan MD [STAFF PHYSICIAN] - 3 Days Patient Instructions/Handouts: Chest Pain (DC), Edema (DC) Discharge Disposition: HOME SELF-CARE
--- NOTE | 2017-12-03 15:26 | P.HPIM ---
History of Present Illness 77-year-old gentleman with a known history of COPD on home oxygen at 2 L came in because the he ran out of power (electricity)at home and unable to use home oxygen. Presented to the [facility] patient was not in COPD exacerbation. During this hospital his hospitalization stay there patient complained about 3/ 10 brief three-minute left-sided chest pain pressure-like sensation nonradiating nonpleuritic not associated with food resolved without any medication EKG showed normal sinus rhythm patient was subsequently transferred to ER here and patient patient is admitted to rule out a concurrent syndromes here. Patient's second troponin is negative I repeated a third one which is negative as well as obtain a d-dimer which is minimally elevated although my concern for PE is extremely low and patient the symptoms are not consistent with PE. Patient is saturating at 88% without oxygen and patient was comparing of some dry cough without any sputum production chest x-ray did not show any pneumonic process of heart failure. Patient had a stress test about [address] Almazan's clinic. Patient will be discharged today to follow with Dr. Almazan in about 3-7 days. Will make sure patient has electric power supply at home today. Review of Systems REVIEW OF SYSTEMS: CONSTITUTIONAL: No fever, no malaise, no fatigue. HEENT: No recent visual problems or hearing problems. Denied any sore throat. CARDIOVASCULAR: No orthopnea, PND, no palpitations, no syncope. PULMONARY: no hemoptysis. GASTROINTESTINAL: No diarrhea, no nausea, no vomiting, no abdominal pain. Normoactive bowel sounds. NEUROLOGICAL: No headaches, no weakness, no numbness. HEMATOLOGICAL: Denies any bleeding or petechiae. GENITOURINARY: Denies any burning micturition, frequency, or urgency. MUSCULOSKELETAL/RHEUMATOLOGICAL: Denies any joint pain, swelling, or any muscle pain. ENDOCRINE: Denies any polyuria or polydipsia. The rest of the 14-point review of systems is negative. Past Medical History Past Medical History: Asthma, Coronary Artery Disease (CAD), Chest Pain / Angina , COPD, Diabetes Mellitus, Eye Disorder, GERD/Reflux, Hypertension, Myocardial Infarction ([place]), Pneumonia, Rheumatoid Arthritis (RA), Skin Disorder Additional Past Medical History / Comment(s): partial blindness rt eye, hx bowel obstruction, hx pancreatitis, freq rashes, diet control diabetic, neuropathy Last Myocardial Infarction Date:: 1993 History of Any Multi-Drug Resistant Organisms: None Reported Past Surgical History: Cholecystectomy, Pacemaker Additional Past Surgical History / Comment(s): Right Carotid endarterectomy, Right knee arthroscopy, henri shoulder rotator cuff, rt cataract Past Anesthesia/Blood Transfusion Reactions: Motion Sickness Type of Cardiac Device: Unknown Device Placement Date:: 1998 Past Psychological History: Depression Smoking Status: Former smoker Past Alcohol Use History: Rare Additional Past Alcohol Use History / Comment(s): quit smoking 1993, smoked 2 PPD for 30 yrs Past Drug Use History: None Reported - Past Family History Mother Family Medical History: No Reported History Medications and Allergies Home Medications Medication Instructions Recorded Confirmed Type Atorvastatin [Lipitor] 40 mg PO DAILY 07/30/16 12/03/17 History Tiotropium [place] [Spiriva] 1 cap INHALATION RT-DAILY 07/30/16 12/03/17 History Aspirin EC [Ecotrin Low Dose] 81 mg PO DAILY #1 tablet. 08/02/16 12/03/17 Rx ALPRAZolam [Xanax] 0.5 mg PO DAILY 12/03/17 12/03/17 History Albuterol Inhaler [Ventolin Hfa 1 - 2 puff INHALATION RT-Q6H PRN 12/03/17 History Inhaler] Albuterol Nebulized [Ventolin 2.5 mg INHALATION RT-Q4H PRN 12/03/17 12/03/17 History Nebulized] Furosemide [Lasix] 20 mg PO DAILY 12/03/17 12/03/17 History Omeprazole 20 mg PO DAILY 12/03/17 12/03/17 History Potassium Chloride [K-Tab ER] 10 meq PO DAILY 12/03/17 12/03/17 History Sertraline [Zoloft] 100 mg PO DAILY 12/03/17 12/03/17 History Allergies Allergy/AdvReac Type Severity Reaction Status Date / Time influenza virus vaccine, Allergy Unknown Verified 12/03/17 11:40 specific morphine Allergy Unknown Verified 12/03/17 11:40 ketorolac tromethamine AdvReac Severe GI Bleed Verified 12/03/17 11:40 [From Toradol] hydromorphone HCl AdvReac Hallucinati Verified 12/03/17 11:40 [From Dilaudid] ons Physical Exam Vitals: Vital Signs Temp Pulse Pulse Resp BP BP Pulse Ox 12/03/17 11:07 53 L 17 134/73 89 L 12/03/17 10:23 98.3 F 59 L 18 129/61 98 12/03/17 08:22 97.5 F L 62 18 140/65 97 Intake and Output 12/03/17 12/03/17 12/03/17 06:59 14:59 22:59 Other: Voiding Method Indwelling Catheter Weight 91.172 kg PHYSICAL EXAMINATION: GENERAL: The patient is alert and oriented x3, not in any acute distress. Well developed, well nourished. HEENT: Pupils are round and equally reacting to light. EOMI. No scleral icterus. No conjunctival pallor. Normocephalic, atraumatic. No pharyngeal erythema. No thyromegaly. CARDIOVASCULAR: S1 and S2 present. No murmurs, rubs, or gallops. PULMONARY: Chest is clear to auscultation, no wheezing or crackles. ABDOMEN: Soft, nontender, nondistended, normoactive bowel sounds. No palpable organomegaly. MUSCULOSKELETAL: No joint swelling or deformity. EXTREMITIES: No cyanosis, clubbing, or pedal edema. NEUROLOGICAL: Gross neurological examination did not reveal any focal deficits. SKIN: No rashes. Results Labs: Abnormal Lab Results - Last 24 Hours (Table) 12/03/17 Range/Units 14:26 D-Dimer 0.96 H (<0.60) mg/L FEU Thrombosis Risk Factor Assmnt - Choose All That Apply Each Factor Represents 1 point: Obesity (BMI >25), Swollen legs (current) Each Risk Factor Represents 3 Points: Age 75 years or older Other congenital or acquired thrombophilia - If yes, enter type in comment: No Thrombosis Risk Factor Assessment Total Risk Factor Score: 5 Thrombosis Risk Factor Assessment Level: High Risk Assessment and Plan Plan: -shortness of breath: Secondary to lack of oxygen supply at home. Further management as mentioned above patient is not in COPD exacerbation -chest pain noncardiac ruled out acute Opal syndromes and patient will be discharged as mentioned above. -type 2 diabetes mellitus -gastroesophageal reflux disease -Hypertension -rheumatoid arthritis -Previous history of smoking -depression Further management as mentioned above patient will follow up with PCP in about a week. Patient will be discharged today.
[2017-12-03 23:13] LABS: Hemoglobin A1C 5.7 % (4.0-6.0)
[2017-12-04] MEDS ORDERED: ASPIRIN 325 MG TAB PO SCH (09:00)
== END 2017-12-03 15:55 | disposition home or self-care (01) ==
LOC: EC 08:20 → 3OBS 09:50
PROVIDERS: ADMIT Internal Medicine; ATTEND Internal Medicine
DX: R07.89 Other chest pain (principal); R06.02 Shortness of breath; M79.89 Other specified soft tissue disorders; M79.661 Pain in right lower leg; Z99.81 Dependence on supplemental oxygen; R79.89 Other specified abnormal findings of blood chemistry; J44.9 Chronic obstructive pulmonary disease, unspecified; I25.10 Atherosclerotic heart disease of native coronary artery without angina pectoris; K21.9 Gastro-esophageal reflux disease without esophagitis; I10 Essential (primary) hypertension; I25.2 Old myocardial infarction; M06.9 Rheumatoid arthritis, unspecified; H54.61 Unqualified visual loss, right eye, normal vision left eye; E11.40 Type 2 diabetes mellitus with diabetic neuropathy, unspecified; F32.9 Major depressive disorder, single episode, unspecified; Z90.49 Acquired absence of other specified parts of digestive tract; Z87.01 Personal history of pneumonia (recurrent); Z95.0 Presence of cardiac pacemaker; Z87.891 Personal history of nicotine dependence; Z79.899 Other long term (current) drug therapy; Z79.82 Long term (current) use of aspirin; Z88.5 Allergy status to narcotic agent; Z88.7 Allergy status to serum and vaccine; Z88.8 Allergy status to other drugs, medicaments and biological substances; E66.9 Obesity, unspecified; Z68.30 Body mass index [BMI] 30.0-30.9, adult
CPT/HCPCS: 99285 ×2; 36415; 93005; 85379; 82550; 82553; 84484; 83036; 93971; G0378

== ENCOUNTER 2018-03-26 15:15 | Inpatient (IN) | payer MEDICARE ==
--- NOTE | 2018-03-26 15:33 | ED ---
GI Bleed HPI - General Stated complaint: UTI/hemoglobin Time Seen by Provider: 03/26/18 15:15 Source: patient, EMS, RN notes reviewed, old records reviewed Mode of arrival: EMS - History of Present Illness Initial comments: 70-year-old male who has a history of penile cancer history of peptic ulcer disease who is a suprapubic catheter who apparently came in to [facility] today he has some shortness of breath and groin pain was found have a hemoglobin 7.5 with heme positive stool. He also was found have a urinary tract infection. He was given 1 unit of blood and transferred here for further evaluation. He was given 750 mg of Levaquin IV he is on 2 L of oxygen which she normally is on at home for his COPD. Right now he states he denies any chest pain he still has some shortness of breath some groin area pain which he states feels chronic. No nausea vomiting. He states his stools have been intermittently brown and darker. No other modifying factors at this time he does state he is scheduled to have an appointment in [place] for evaluation of his catheter and penile cancer in 2 days. He did have a CAT scan done at [facility] show evidence of a hiatal hernia and evidence of bladder wall thickening due to distention versus cystitis. X-ray also showed mild perihilar interstitial prominence - Related Data Home Medications Medication Instructions Recorded Confirmed Atorvastatin [Lipitor] 40 mg PO DAILY 07/30/16 02/01/18 Tiotropium [place] [Spiriva] 1 cap INHALATION RT-DAILY 07/30/16 02/01/18 ALPRAZolam [Xanax] 0.5 mg PO DAILY 12/03/17 02/01/18 Albuterol Inhaler [Ventolin Hfa 1 - 2 puff INHALATION RT-Q6H PRN 12/03/17 Inhaler] Albuterol Nebulized [Ventolin 2.5 mg INHALATION RT-Q4H PRN 12/03/17 02/01/18 Nebulized] Sertraline [Zoloft] 100 mg PO DAILY 12/03/17 02/01/18 Previous Rx's Medication Instructions Recorded Aspirin EC [Ecotrin Low Dose] 81 mg PO DAILY #1 tablet. 08/02/16 Pantoprazole [Protonix] 40 mg PO AC-BRKFST #30 tablet. 02/03/18 Allergies Allergy/AdvReac Type Severity Reaction Status Date / Time influenza virus vaccine, Allergy Unknown Verified 02/01/18 11:03 specific morphine Allergy Unknown Verified 02/01/18 11:03 ketorolac tromethamine AdvReac Severe GI Bleed Verified 02/01/18 11:03 [From Toradol] hydromorphone HCl AdvReac Hallucinati Verified 02/01/18 11:03 [From Dilaudid] ons Review of Systems ROS Statement: Those systems with pertinent positive or pertinent negative responses have been documented in the HPI. ROS Other: All systems not noted in ROS Statement are negative. Past Medical History Past Medical History: Asthma, Coronary Artery Disease (CAD), Chest Pain / Angina , COPD, Diabetes Mellitus, Eye Disorder, GERD/Reflux, Hypertension, Myocardial Infarction ([place]), Pneumonia, Rheumatoid Arthritis (RA), Skin Disorder Additional Past Medical History / Comment(s): partial blindness rt eye, hx bowel obstruction, hx pancreatitis, freq rashes, diet control diabetic, neuropathy Last Myocardial Infarction Date:: 1993 History of Any Multi-Drug Resistant Organisms: None Reported Past Surgical History: Cholecystectomy, Pacemaker Additional Past Surgical History / Comment(s): Right Carotid endarterectomy, Right knee arthroscopy, henri shoulder rotator cuff, rt cataract Past Anesthesia/Blood Transfusion Reactions: Motion Sickness Type of Cardiac Device: Unknown Device Placement Date:: 1998 Past Psychological History: Depression Smoking Status: Former smoker Past Alcohol Use History: Rare Additional Past Alcohol Use History / Comment(s): quit smoking 1993, smoked 2 PPD for 30 yrs Past Drug Use History: None Reported - Past Family History Mother Family Medical History: No Reported History General Exam - General Exam Comments Initial Comments: This is a well-developed well-nourished awake alert oriented times 3 male Limitations: no limitations General appearance: alert Head exam: Present: atraumatic, normocephalic, normal inspection Eye exam: Present: PERRL, EOMI, other (Pale conjunctiva). Absent: scleral icterus, conjunctival injection, periorbital swelling Respiratory exam: Present: decreased breath sounds Cardiovascular Exam: Present: regular rate, normal rhythm, normal heart sounds. Absent: systolic murmur, diastolic murmur, rubs, gallop, clicks GI/Abdominal exam: Present: soft, tenderness (Mild epigastric discomfort palpation no guarding rebound masses or bruits), other (Suprapubic catheter in place no evidence of any drainage around the catheter. The patient states this is replaced this morning) Rectal exam: Present: deferred, other (HEENT positive stool per report from this morning's exam) exam: Present: other (Mild tenderness palpation over the scrotal region no masses no drainage or discharge seen) Extremities exam: Present: normal inspection, full ROM, normal capillary refill. Absent: tenderness, pedal edema, joint swelling, calf tenderness Back exam: Present: normal inspection Neurological exam: Present: alert, oriented X3, CN II-XII intact Psychiatric exam: Present: normal affect, normal mood Skin exam: Present: warm, dry, intact, pallor Course Vital Signs 03/26/18 15:28 Temperature 98.3 F Pulse Rate 71 Respiratory 16 Rate Blood Pressure 112/58 O2 Sat by Pulse 100 Oximetry Medical Decision Making - Medical Decision Making I did review the charting separately the patient from [facility]. Patient will be admitted for evaluation by GI. The case is discussed with Dr. Patel. Disposition Clinical Impression: GI bleed, Anemia, COPD (chronic obstructive pulmonary disease), Urinary tract infection Disposition: ADMITTED IP TO THIS HOSP Condition: Stable Referrals: Arjun Coelho MD [Primary Care Provider] - 1-2 days
[2018-03-26] MEDS ORDERED: NALOXONE 0.4 MG/ML 1 ML VIAL IV PRN (15:41)
[2018-03-26] MEDS ORDERED: ONDANSETRON 4 MG/2 ML VIAL IVP PRN (15:41)
[2018-03-26] MEDS ORDERED: ACETAMINOPHEN TAB 325 MG TAB PO PRN (15:41)
[2018-03-26] MEDS: IPRATROPIUM-ALBUTEROL 3 ML NEB INHALATION SCH ×2 (16:19→20:28)
[2018-03-26 17:04] VITALS: BMI 26.4
[2018-03-26] MEDS: SODIUM CHLORIDE 0.9% 1,000 ML IV SCH (18:08)
[2018-03-26] MEDS: PANTOPRAZOLE 40 MG/10 ML VIAL IV SCH (20:14)
[2018-03-26] MEDS: HYDROcodone/APAP 5-325MG 1 EACH TAB PO PRN (20:14)
[2018-03-26] MEDS ORDERED: IPRATROPIUM-ALBUTEROL 3 ML NEB INHALATION PRN (20:28)
[2018-03-26 22:25] LABS: Anisocytosis Moderate; Basophils # (A) 0.1 k/uL (0-0.2); Basophils % (A) 1 %; Eosinophils # (A) 0.1 k/uL (0-0.7); Eosinophils % (A) 2 %; HCT 26.5 % (39.0-53.0); HGB 7.9 gm/dL (13.0-17.5); Hypochromasia Marked; Lymphocytes # (A) 1.6 k/uL (1.0-4.8); Lymphocytes % (A) 21 %; MCH 24.7 pg (25.0-35.0); MCHC 29.7 g/dL (31.0-37.0); MCV 83.3 fL (80.0-100.0); Mean Platelet Volume 8.4; Microcytosis Slight; Monocytes # (A) 0.4 k/uL (0-1.0); Monocytes % (A) 6 %; Neutrophils % (A) 68 %; Platelet Count 296 k/uL (150-450); Poikilocytosis Moderate; RBC 3.18 m/uL (4.30-5.90); RDW 21.9 % (11.5-15.5); WBC 7.4 k/uL (3.8-10.6)
[2018-03-26 22:53] LABS: Anisocytosis (M) Present; Hypochromasia (M) Present; Poikilocytosis (M) Present; RBC Fragments Present; Target Cells Present
[2018-03-27] MEDS: HYDROcodone/APAP 5-325MG 1 EACH TAB PO PRN ×2 (04:13→13:25)
[2018-03-27 04:55] LABS: Glucose,Whole Blood 109 mg/dL (75-99)
[2018-03-27 06:59] LABS: Glucose,Whole Blood 104 mg/dL (75-99)
[2018-03-27] MEDS: IPRATROPIUM-ALBUTEROL 3 ML NEB INHALATION SCH ×4 (07:28→18:55)
[2018-03-27] MEDS: PANTOPRAZOLE 40 MG/10 ML VIAL IV SCH (07:57)
[2018-03-27] MEDS: SERTRALINE 100 MG TAB PO SCH (07:57)
[2018-03-27] MEDS: ATORVASTATIN 40 MG TAB PO SCH (07:58)
[2018-03-27] MEDS ORDERED: NON-FORMULARY DRUG (Tiotropium Bromide [Spiriva] 1 CAP) INHALATION SCH (08:00)
[2018-03-27] MEDS ORDERED: LEVOFLOXACIN 750MG-D5W PMX 750 MG in DEXTROSE/WATER 1 150ML.BAG IVPB SCH (09:00)
[2018-03-27 11:15] LABS: Glucose,Whole Blood 102 mg/dL (75-99)
[2018-03-27 12:45] LABS: Hemoglobin A1C 5.7 % (4.0-6.0)
[2018-03-27 16:28] LABS: Glucose,Whole Blood 163 mg/dL (75-99)
[2018-03-27] MEDS ORDERED: NON-FORMULARY DRUG (Omeprazole [Omeprazole] 20 MG) PO SCH (16:45)
[2018-03-27] MEDS ORDERED: FUROSEMIDE 10 MG/ML 4 ML VIAL IV SCH (16:45)
--- NOTE | 2018-03-27 16:55 | P.CONS ---
History of Present Illness - Reason for Consult Consult date: 03/27/18 Anemia, dark stool Requesting physician: Adam Patel - Chief Complaint Shortness breath, groin pain - History of Present Illness The patient is a 70-year-old male with multiple medical comorbidities including asthma, coronary artery disease, COPD, diabetes mellitus, GERD, hypertension, diabetes mellitus who presented to [facility] with complaints of shortness of breath and groin pain. The patient was found to have a urinary tract infection at that time, and also was found to be anemic with hemoglobin of 7.5 and was sent to [facility] for further evaluation. Currently the patient is on IV antibiotics for treatment of his UTI. Patient was found to be positive on FOBT. He does have a prior history of peptic ulcer disease however has had both upper endoscopy and lower endoscopy this year without any significant pathology. EGD in 01/2018 showed gastritis and duodenitis and colonoscopy on was normal. He is currently compliant with omeprazole 20 mg daily. The patient was previously hospitalized in January when he had the EGD and at that time was discharged with a hemoglobin of 7.9. He reports dark brown stool but denies any melena or hematochezia. He denies any nausea vomiting or hematemesis. He is on aspirin 81 mg daily but denies any other NSAID use. He did have a computed tomography scan at [facility] which was significant for bladder wall thickening and a hiatal hernia. Past endoscopic history:EGD in 01/2018 showed gastritis and duodenitis and colonoscopy on was normal. Social history: 30 years tobacco use with 2 packs per day, the patient quit in 1993. No illicit drug use reported. Family history: Noncontributory. Review of Systems REVIEW OF SYSTEMS: CARDIOPULMONARY: Denies chest pain or shortness of breath. GENITOURINARY: No dysuria or hematuria, the patient has a suprapubic catheter which is draining yellow urine. MUSCULOSKELETAL: No weakness reported. SKIN: Denies any new rashes or lesions, jaundice or pallor. PSYCHIATRIC: Denies any depression or anxiety. NEUROLOGY: Denies headache, denies any new focal deficits. EARS: No tinnitus, discharge or new hearing loss. NOSE: No discharge or congestion. EYES: No pain in eyes or change in vision. CONSTITUTIONAL: No recent weight loss. No fever, chills, night sweats. Past Medical History Past Medical History: Asthma, Coronary Artery Disease (CAD), Chest Pain / Angina , COPD, Diabetes Mellitus, Eye Disorder, GERD/Reflux, Hypertension, Myocardial Infarction ([place]), Pneumonia, Rheumatoid Arthritis (RA), Skin Disorder Additional Past Medical History / Comment(s): partial blindness rt eye, hx bowel obstruction, hx pancreatitis, freq rashes, diet control diabetic, neuropathy Last Myocardial Infarction Date:: 1994 History of Any Multi-Drug Resistant Organisms: None Reported Past Surgical History: Cholecystectomy, Pacemaker Additional Past Surgical History / Comment(s): Right Carotid endarterectomy, Right knee arthroscopy, henri shoulder rotator cuff, rt cataract Past Anesthesia/Blood Transfusion Reactions: Motion Sickness Type of Cardiac Device: Unknown Device Placement Date:: 1998 Past Psychological History: Depression Smoking Status: Former smoker Past Alcohol Use History: Rare Additional Past Alcohol Use History / Comment(s): quit smoking 1993, smoked 2 PPD for 30 yrs Past Drug Use History: None Reported - Past Family History Mother Family Medical History: No Reported History Medications and Allergies Home Medications Medication Instructions Recorded Confirmed Type Atorvastatin [Lipitor] 40 mg PO DAILY 07/30/16 03/26/18 History Tiotropium [place] [Spiriva] 1 cap INHALATION RT-DAILY 07/30/16 03/26/18 History Aspirin EC [Ecotrin Low Dose] 81 mg PO DAILY #1 tablet. 08/02/16 03/26/18 Rx ALPRAZolam [Xanax] 0.5 mg PO DAILY 12/03/17 03/26/18 History Albuterol Inhaler [Ventolin Hfa 1 - 2 puff INHALATION RT-Q6H PRN 12/03/17 History Inhaler] Albuterol Nebulized [Ventolin 2.5 mg INHALATION RT-Q4H PRN 12/03/17 03/26/18 History Nebulized] Sertraline [Zoloft] 100 mg PO DAILY 12/03/17 03/26/18 History Hydrochlorothiazide [Hydrodiuril] 25 mg PO DAILY 03/26/18 03/26/18 History Omeprazole 20 mg PO DAILY 03/26/18 03/26/18 History Allergies Allergy/AdvReac Type Severity Reaction Status Date / Time influenza virus vaccine, Allergy Unknown Verified 03/26/18 16:00 specific morphine Allergy Unknown Verified 03/26/18 16:00 ketorolac tromethamine AdvReac Severe GI Bleed Verified 03/26/18 16:00 [From Toradol] hydromorphone HCl AdvReac Hallucinati Verified 03/26/18 16:00 [From Dilaudid] ons Physical Exam Vitals: Vital Signs Temp Pulse Pulse Pulse Resp BP Pulse Ox 03/27/18 15:17 60 03/27/18 15:10 64 03/27/18 15:02 98.1 F 75 16 127/70 99 03/27/18 10:59 68 03/27/18 10:51 60 03/27/18 07:36 60 03/27/18 07:29 64 03/27/18 05:40 97.7 F 75 18 136/68 94 L 03/26/18 23:00 98.0 F 68 16 115/64 92 L 03/26/18 20:40 65 03/26/18 20:30 65 99 03/26/18 17:30 97.0 F L 81 20 119/56 99 Intake and Output 03/27/18 03/27/18 03/27/18 06:59 14:59 22:59 Intake Total 160 Output Total 1000 Balance -840 Intake: Intake, IV Titration 160 Amount Sodium Chloride 0.9% 1, 160 000 ml @ 20 mls/hr IV . Q24H [facility] Rx#:[id number] Output: Urine 1000 Other: Voiding Method Indwelling Catheter Indwelling Catheter Indwelling Catheter Weight 79 kg On physical examination, patient appears comfortable in no apparent distress. HEAD: Normocephalic, atraumatic. EYES: No scleral icterus. No conjunctival injection. MOUTH: No lesions, tongue midline. NECK: Trachea midline, no gross abnormalities. CHEST: Decreased air entry in all lung ribeiro, no wheezing appreciated, patient is on oxygen therapy. HEART: Regular rate and rhythm. ABDOMEN: Soft. Bowel sounds are positive. No organomegaly. No guarding or rigidity. EXTREMITIES: No pedal edema. SKIN: No rashes, no jaundice. Patient has a suprapubic catheter, intact with no associated skin changes. NEUROLOGIC: Alert and oriented x3. No focal deficits. Results CBC & Chem 7: 03/26/18 21:35 Labs: Abnormal Lab Results - Last 24 Hours (Table) 03/26/18 03/27/18 03/27/18 Range/Units 21:35 04:53 06:58 RBC 3.18 L (4.30-5.90) m/uL Hgb 7.9 L (13.0-17.5) gm/dL Hct 26.5 L (39.0-53.0) % MCH 24.7 L (25.0-35.0) pg MCHC 29.7 L (31.0-37.0) g/dL RDW 21.9 H (11.5-15.5) % POC Glucose (mg/dL) 109 H 104 H (75-99) mg/dL 18 03/27/18 Range/Units 11:14 16:27 RBC (4.30-5.90) m/uL Hgb (13.0-17.5) gm/dL Hct (39.0-53.0) % MCH (25.0-35.0) pg MCHC (31.0-37.0) g/dL RDW (11.5-15.5) % POC Glucose (mg/dL) 102 H 163 H (75-99) mg/dL CT scan - abdomen: report reviewed (Hiatal hernia with bladder wall thickening.) Assessment and Plan (1) Normocytic anemia Narrative/Plan: Likely anemia of chronic disease with the patient denying any signs or symptoms of GI bleeding. The patient was found to be FOBT positive on presentation, however hemoglobin is at baseline (same as discharge hemoglobin in January). In addition patient has had endoscopic evaluation with both EGD and colonoscopy this year and is on daily PPI therapy. Current Visit: Yes Status: Acute Code(s): D64.9 - ANEMIA, UNSPECIFIED SNOMED Code(s): 507475792 (2) History of peptic ulcer disease Narrative/Plan: Prior history of peptic ulcer disease. In January patient had EGD significant only for duodenitis and gastritis. Current Visit: Yes Status: Acute Code(s): Z87.11 - PERSONAL HISTORY OF PEPTIC ULCER DISEASE SNOMED Code(s): 504483189 (3) Gastritis and duodenitis Narrative/Plan: As above. Current Visit: Yes Status: Acute Code(s): K29.90 - GASTRODUODENITIS, UNSPECIFIED, WITHOUT BLEEDING SNOMED Code(s): 884216738 Plan: Okay for diet Continue to monitor hemoglobin and transfuse as needed Continue omeprazole daily as outpatient and Protonix daily as inpatient Continue supportive care No plans for endoscopic evaluation at this time If patient has acute fall in hemoglobin can consider capsule endoscopy or repeat upper endoscopy for evaluation, however hemoglobin is a discharge level from January Thank you for allowing us to participate in this care of this patient we will continue to follow
--- NOTE | 2018-03-27 17:21 | HP ---
HISTORY AND PHYSICAL DATE OF ADMISSION: March 26, 2018. DATE OF SERVICE: March 27, 2018. PRESENTING COMPLAINT: Pain in the pubic area, short of breath. HISTORY OF PRESENTING COMPLAINT: This is a very pleasant 78-year-old patient who was here over a month ago. At that time, patient presented with acute GI bleed, was found to have duodenitis and gastritis from being on aspirin. The patient did receive a unit of blood. The patient's chronic stable medical conditions include coronary artery disease, COPD, GERD, hypertension, peripheral neuropathy, and rheumatoid arthritis. The patient has also had a history of bladder cancer for which she follows at [facility]. The patient has a suprapubic catheter that is changed every month. The patient was due to follow up at [facility] tomorrow, but recently he has been having increasing abdominal pain in the groin area and finding it difficult to walk with the same. The patient presented to [facility] yesterday from where he was transferred here. The patient has been out of his inhalers and his COPD is getting worse and coming down. He has got a slight cough. No sputum, some wheezing. The patient does not have hematuria. REVIEW OF SYSTEMS: CONSTITUTIONAL: Tired. HEENT none. RESPIRATORY: As above. CARDIOVASCULAR none. GASTROINTESTINAL none. GENITOURINARY as above. MUSCULOSKELETAL: Pain in the joints. DERMATOLOGICAL, HEMATOLOGIC, LYMPHATICS: none. PSYCHIATRY none. NEUROLOGICAL: Uses a cane. PAST MEDICAL HISTORY: Coronary artery disease, COPD, diabetes, eye disorder, GERD, hypertension, rheumatoid arthritis, skin disorder, partial blindness right eye, bowel obstruction, history of pancreatitis, diet-controlled diabetic peripheral neuropathy, gastritis, duodenitis, bladder cancer with a suprapubic catheter. PAST SURGICAL HISTORY: Cholecystectomy, pacemaker, right carotid endarterectomy, right knee arthroscopy, bilateral shoulder rotator cuff surgery, bladder surgery with suprapubic catheter. SOCIAL HISTORY: Patient is . Smoked 2 packs a day for 30 years, stopped in 1993. Alcohol rarely. Lives alone. Does use a cane. FAMILY HISTORY: Reviewed, noncontributory to presentation. MEDICATIONS: 1. Spiriva 1 inhalation daily. 2. Zoloft 100 mg p.o. daily. 3. Omeprazole 20 mg p.o. daily. 4. Hydrochlorothiazide 25 mg p.o. daily. 5. Lipitor 40 mg p.o. daily. 6. Aspirin 81 mg p.o. daily. 7. Ventolin 2.5 q.4 p.r.n. 8. Ventolin HFA inhaler 1-2 puffs q.6h p.r.n. 9. Xanax 0.5 p.o. daily. ALLERGIES: INFLUENZA, MORPHINE, TORADOL, DILAUDID. PHYSICAL EXAMINATION: VITAL SIGNS: Vital signs on presentation, temperature 98.3, pulse 71, respirations 16, blood pressure 112/58, pulse ox 100 percent on 2 L. GENERAL APPEARANCE: Average build, lying in bed, tired-appearing. EYES: Pupils equal. Conjunctivae pale. HEENT: External appearance of nose and ears normal. Oral cavity normal. NECK: JVD not raised. Mass not palpable. RESPIRATORY: Effort increased. LUNGS: Diminished breath sounds. Questionable crackles. CARDIOVASCULAR: 1st and 2nd sounds normal. No edema. ABDOMEN: Soft. Mild suprapubic tenderness. Patient has a suprapubic catheter. Liver and spleen not palpable. LYMPHATICS: No lymph nodes palpable in the neck and axilla. PSYCHIATRY: Alert and oriented x3. Mood and affect normal. NEUROLOGICAL: Pupils equal. Cranial nerves grossly intact. Power and sensation grossly intact. MUSCULOSKELETAL: Evidence of osteoarthritis especially in the hands. INVESTIGATIONS: White count 7.4, hemoglobin 7.9, that is same from over a month ago. Platelets 296. Accu-Cheks are noted. CT scan of the abdomen at [facility] showed hiatal hernia, abdominal aortic aneurysm 3.4 cm in AP diameter and 4.1 cephalad, bladder wall thickening. Chest x-ray showed some mild fluid overload. The patient's last 2D echocardiogram from 2016 shows preserved LV function. ASSESSMENT: 1. Possible acute congestive heart failure from diastolic dysfunction in a patient with known coronary artery disease. 2. Chronic anemia from gastrointestinal blood loss. The patient has history of duodenitis and gastritis. 3. Coronary artery disease. 4. Chronic obstructive pulmonary disease in an ex-smoker with some exacerbation due to patient running out of his inhalers. 5. Gastroesophageal reflux disease. 6. Essential hypertension. 7. Peripheral neuropathy, idiopathic. 8. Rheumatoid arthritis, bilateral. 9. History of bladder cancer with surgery, now with a suprapubic catheter. 10.Abdominal aortic aneurysm 3.4 cm in the AP diameter and 4.1 cm cephalad. PLAN: Home medications are resumed. Patient will be put on DuoNeb. We will give the patient 1 dose of IV Lasix. The patient has canceled his appointment at [facility] for tomorrow. Will follow up next week. Care was discussed with the patient. Patient's hemoglobin appears to be rather stable. Gastroenterology consult had been ordered earlier. Copy to Dr. Coelho. RAMAL / NICKN: [id number] /
[2018-03-27] MEDS: SODIUM CHLORIDE 0.9% 1,000 ML IV SCH (17:26)
--- NOTE | 2018-03-27 17:44 | XR ---
EXAMINATION TYPE: XR chest 2V DATE OF EXAM: 03/27/2018 COMPARISON: Yesterday HISTORY: Short of breath TECHNIQUE: Frontal and lateral views of the chest are obtained. FINDINGS: There is mild pulmonary vascular congestion. There is left axillary pacemaker with the jevon d tips over the right ventricle. There is no pleural effusion. IMPRESSION: Pulmonary vascularity appears improved slightly compared to yesterday. Pulmonary interst itial fibrosis is also possible. This is consistent with improvement in congestive heart failure.
[2018-03-27] MEDS: ALPRAZolam 0.5 MG TAB PO SCH (17:51)
[2018-03-27] MEDS: BUDESONIDE 1 MG/2 ML NEBU INHALATION SCH (18:55)
[2018-03-27 20:10] LABS: Glucose,Whole Blood 128 mg/dL (75-99)
[2018-03-28 07:10] LABS: Glucose,Whole Blood 119 mg/dL (75-99)
[2018-03-28] MEDS: SERTRALINE 100 MG TAB PO SCH (07:18)
[2018-03-28] MEDS: ASPIRIN 81 MG PO SCH (07:18)
[2018-03-28] MEDS: ATORVASTATIN 40 MG TAB PO SCH (07:18)
[2018-03-28] MEDS: PANTOPRAZOLE 40 MG TABLET PO SCH (07:18)
[2018-03-28] MEDS: ALPRAZolam 0.5 MG TAB PO SCH (07:18)
[2018-03-28 07:41] LABS: Calcium 8.3 mg/dL (8.4-10.2)
[2018-03-28] MEDS: IPRATROPIUM-ALBUTEROL 3 ML NEB INHALATION SCH ×4 (08:33→19:48)
[2018-03-28] MEDS: BUDESONIDE 1 MG/2 ML NEBU INHALATION SCH ×2 (11:31→19:48)
[2018-03-28 12:05] LABS: Glucose,Whole Blood 114 mg/dL (75-99)
--- NOTE | 2018-03-28 12:54 | P.CRDCN ---
History of Present Illness History of present illness: Mr. Resendiz is a pleasant 78-year-old male past medical history significant for sick sinus syndrome s/p permanent pacemaker insertion, paroxysmal atrial fibrillation, hypertension, dyslipidemia, mild non- obstructive coronary artery disease, COPD and bladder and penile cancer. He follows with Dr. Almazan in the office. We have been asked to see him in consultation for shortness of breath. He states he presented to the hospital in [place] with symptoms of lower abdominal pain and GI bleeding. Hgb there was 7.5 and he was hemeoccult positive. He states he has been short of breath for the previous year with mild progression over time. He states he wears oxygen at home at night. He denies chest pain, increased dyspnea with exertion, PND, orthopnea, dizziness, palpitations, nausea, vomiting or diaphoresis. Chest x-ray reveals improved pulmonary vascularity compared to yesterday, pulmonary interstitial fibrosis is a possibility. There is no EKG for evaluation. Laboratory data reviewed, sodium 136, potassium 4.0, creatinine 0.95, proBNP 589, hemoglobin 7.9, platelets 296. Current cardiac medications include aspirin 81 mg daily, atorvastatin 40 mg daily, hydrochlorothiazide 25 mg daily. He also takes Xanax, Ventolin, omeprazole, Zoloft and three-vessel. He recently saw Dr. Almazan in the office in September prior to undergoing urologic surgery at the [facility]. At that time he underwent a Lexiscan stress test which was negative for stress-induced cardiac ischemia with evidence of a fixed inferior wall defect secondary to soft tissue attenuation. Most recent echocardiogram performed November 2016 revealed a normal left ventricular systolic function with mild pulmonary hypertension. Review of Systems At the time of my exam: CONSTITUTIONAL: Denies fever. Denies chills. EYES: Denies blurred vision. Denies vision changes. Denies eye pain. EARS, NOSE, MOUTH & THROAT: Denies headache. Denies sore throat. Denies ear pain. CARDIOVASCULAR: Denies chest pain. Denies shortness of breath. Denies orthopnea. Denies PND. Denies palpitations. RESPIRATORY: Denies cough. GASTROINTESTINAL: Denies abdominal pain. Denies diarrhea. Denies constipation. Denies nausea. Denies vomiting. MUSCULOSKELETAL: Denies myalgias. INTEGUMENTARY: Denies pruitis. Denies rash. NEUROLOGIC: Denies numbness. Denies tingling. Denies weakness. PSYCHIATRIC: Denies anxiety. Denies depression. ENDOCRINE: Denies fatigue. Denies weight change. Denies polydipsia. Denies polyurina. GENITOURINARY: Denies burning, hematuria or urgency with micturation. HEMATOLOGIC: Denies history of anemia. Denies bleeding. Past Medical History Past Medical History: Asthma, Coronary Artery Disease (CAD), Chest Pain / Angina , COPD, Diabetes Mellitus, Eye Disorder, GERD/Reflux, Hypertension, Myocardial Infarction (ID), Pneumonia, Rheumatoid Arthritis (RA), Skin Disorder Additional Past Medical History / Comment(s): partial blindness rt eye, hx bowel obstruction, hx pancreatitis, freq rashes, diet control diabetic, neuropathy Last Myocardial Infarction Date:: 1994 History of Any Multi-Drug Resistant Organisms: None Reported Past Surgical History: Cholecystectomy, Pacemaker Additional Past Surgical History / Comment(s): Right Carotid endarterectomy, Right knee arthroscopy, henri shoulder rotator cuff, rt cataract Past Anesthesia/Blood Transfusion Reactions: Motion Sickness Type of Cardiac Device: Unknown Device Placement Date:: 1998 Past Psychological History: Depression Smoking Status: Former smoker Past Alcohol Use History: Rare Additional Past Alcohol Use History / Comment(s): quit smoking 1993, smoked 2 PPD for 30 yrs Past Drug Use History: None Reported - Past Family History Mother Family Medical History: No Reported History Medications and Allergies Home Medications Medication Instructions Recorded Confirmed Type Atorvastatin [Lipitor] 40 mg PO DAILY 07/30/16 03/26/18 History Tiotropium [place] [Spiriva] 1 cap INHALATION RT-DAILY 07/30/16 03/26/18 History Aspirin EC [Ecotrin Low Dose] 81 mg PO DAILY #1 tablet. 08/02/16 03/26/18 Rx ALPRAZolam [Xanax] 0.5 mg PO DAILY 12/03/17 03/26/18 History Albuterol Inhaler [Ventolin Hfa 1 - 2 puff INHALATION RT-Q6H PRN 12/03/17 History Inhaler] Albuterol Nebulized [Ventolin 2.5 mg INHALATION RT-Q4H PRN 12/03/17 03/26/18 History Nebulized] Sertraline [Zoloft] 100 mg PO DAILY 12/03/17 03/26/18 History Hydrochlorothiazide [Hydrodiuril] 25 mg PO DAILY 03/26/18 03/26/18 History Omeprazole 20 mg PO DAILY 03/26/18 03/26/18 History Allergies Allergy/AdvReac Type Severity Reaction Status Date / Time influenza virus vaccine, Allergy Unknown Verified 03/26/18 16:00 specific morphine Allergy Unknown Verified 03/26/18 16:00 ketorolac tromethamine AdvReac Severe GI Bleed Verified 03/26/18 16:00 [From Toradol] hydromorphone HCl AdvReac Hallucinati Verified 03/26/18 16:00 [From Dilaudid] ons Physical Exam Vitals: Vital Signs Temp Pulse Pulse Resp BP Pulse Ox 03/28/18 11:45 72 03/28/18 11:32 72 03/28/18 05:00 97.3 F L 66 16 120/59 96 03/27/18 21:00 97.3 F L 96 16 109/74 95 03/27/18 19:05 92 03/27/18 18:56 88 03/27/18 15:17 60 03/27/18 15:10 64 03/27/18 15:02 98.1 F 75 16 127/70 99 Intake and Output 03/27/18 03/28/18 03/28/18 22:59 06:59 14:59 Intake Total 80 Output Total 1300 Balance 80 -1300 Intake: IV 80 Sodium Chloride 0.9% 1, 80 000 ml @ 20 mls/hr IV . Q24H [facility] Rx#:[id number] Output: Urine 1300 Other: Voiding Method Indwelling Catheter Indwelling Catheter Weight 80 kg Blood pressure 120/59 heart rate 66 afebrile maintaining oxygen saturation on nasal cannula 3 L GENERAL: This is a 78-year-old male in no apparent distress at the time of my examination. HEENT: Head is atraumatic, normocephalic. Pupils are equal, round. Sclerae anicteric. Conjunctivae are clear. Mucous membranes of the mouth are moist. Neck is supple. There is no jugular venous distention. No carotid bruit is heard. LUNGS: Faint bibasilar rales noted. No wheezes or rhonchi. No chest wall tenderness is noted on palpation or with deep breathing. HEART: Regular rate and rhythm without murmurs, rubs or gallops. S1 and S2 heard. ABDOMEN: Soft, nontender. Bowel sounds are heard. No organomegaly noted. Urinary catheter in place. EXTREMITIES: No evidence of peripheral edema and no calf tenderness noted. VASCULAR: Radial and dorsalis pedis pulses palpated, no evidence of clubbing. NEUROLOGIC: Patient is awake, alert and oriented x3. Results 03/26/18 21:35 03/28/18 07:04 Comprehensive Metabolic Panel 03/28/18 Range/Units 07:04 Sodium 136 L (137-145) mmol/L Potassium 4.0 (3.5-5.1) mmol/L Chloride 103 (98-107) mmol/L Carbon Dioxide 27 (22-30) mmol/L BUN 11 (9-20) mg/dL Creatinine 0.95 (0.66-1.25) mg/dL Glucose 95 (74-99) mg/dL Calcium 8.3 L (8.4-10.2) mg/dL Current Medications Generic Name Dose Route Start Last Admin Trade Name Freq PRN Reason Stop Dose Admin Acetaminophen 650 mg 03/26/18 15:41 Tylenol Tab PO Q6HR PRN Mild Pain or Fever > 100.5 Hydrocodone Bitart/Acetaminophen 1 each 03/26/18 19:24 03/27/18 13:25 [place] 5-325 PO 1 each Q8HR PRN Administration Pain Albuterol/Ipratropium 3 ml 03/26/18 20:28 Duoneb 0.5 Mg-3 Mg/3 Ml Soln INHALATION RT-QID PRN Shortness Of Breath Or Wheezing Albuterol/Ipratropium 3 ml 03/27/18 08:00 03/28/18 11:31 Duoneb 0.5 Mg-3 Mg/3 Ml Soln INHALATION 3 ml RT-QID [facility] Administration Alprazolam 0.5 mg 03/27/18 16:45 03/28/18 07:18 Xanax PO 0.5 mg DAILY [facility] Administration Aspirin 81 mg 03/28/18 09:00 03/28/18 07:18 Aspirin PO 81 mg DAILY DO[facility] Administration Atorvastatin Cal[place] 40 mg 03/27/18 09:00 03/28/18 07:18 Lipitor PO 40 mg DAILY DO[facility] Administration Budesonide 1 mg 03/27/18 20:00 03/28/18 11:31 Pulmicort INHALATION 1 mg RT-BID DOYLE Administration Sodium Chloride 1,000 mls @ 20 mls/hr 03/26/18 15:45 03/27/18 17:26 Saline 0.9% IV Not Given .Q24H [facility] Naloxone HCl 0.2 mg 03/26/18 15:41 Narcan IV Q2M PRN Opioid Reversal Ondansetron HCl 4 mg 03/26/18 15:41 Zofran IVP Q8HR PRN Nausea And Vomiting Pantoprazole Sodium 40 mg 03/28/18 07:30 03/28/18 07:18 Protonix PO 40 mg AC-BRKFST DOYLE Administration Sertraline HCl 100 mg 03/27/18 09:00 03/28/18 07:18 Zoloft PO 100 mg DAILY DOYLE Administration Intake and Output 03/27/18 03/28/18 03/28/18 22:59 06:59 14:59 Intake Total 80 Output Total 1300 Balance 80 -1300 Intake: IV 80 Sodium Chloride 0.9% 1, 80 000 ml @ 20 mls/hr IV . Q24H [facility] Rx#:[id number] Output: Urine 1300 Other: Voiding Method Indwelling Catheter Indwelling Catheter Weight 80 kg 03/26/18 21:35 03/28/18 07:04 Assessment and Plan Assessment: ASSESSMENT Shortness of breath. May be related to anemia upon admission requiring blood transfusion as well as chronic COPD. Paroxysmal atrial fibrillation not on long-term anticoagulation contraindication due to risk of bleeding. Currently in sinus mechanism per auscultation. Acute GI bleed, GI following. History of sick sinus syndrome status post permanent pacemaker implantation Hypertension COPD Diabetes mellitus Carotid artery disease Dyslipidemia Urinary tract infection History of urologic cancer PLAN Obtain 2-D echocardiogram and Doppler study to assess cardiac structure and function. Obtain baseline EKG. No overt symptoms of acute heart failure exacerbation. Normal BNP, no evidence of lower extremity edema, no PND, no orthopnea and denies exertional shortness of breath. Resume his home dose of hydrochlorothiazide 25 mg daily. Thank you kindly for this consultation. Nurse Practitioner note has been reviewed, I agree with a documented findings and plan of care. Patient was seen and examined.
--- NOTE | 2018-03-28 12:57 | ECHOF ---
Referral Reason:chf MEASUREMENTS -------- HEIGHT: 172.7 cm WEIGHT: 79.8 kg BP: 120/59 RVIDd: 2.9 cm (< 3.3) IVSd: 1.1 cm (0.6 - 1.1) LVIDd: 3.6 cm (3.9 - 5.3) LVPWd: 1.2 cm (0.6 - 1.1) IVSs: 1.4 cm LVIDs: 2.3 cm LVPWs: 1.3 cm LAESV Index (A-L): 26.78 ml/m Ao Diam: 2.7 cm (2.0 - 3.7) AV Cusp: 1.9 cm (1.5 - 2.6) LA Diam: 3.2 cm (2.7 - 3.8) MV EXCURSION: 21.518 mm (> 18.000) MV EF SLOPE: 92 mm/s (70 - 150) EPSS: 0.5 cm MV E James: 0.59 m/s MV DecT: 265 ms MV A James: 0.92 m/s MV E/A Ratio: 0.64 RAP: 5.00 mmHg RVSP: 50.82 mmHg FINDINGS -------- Sinus rhythm. Paced rhythm. This was a technically adequate study. The left ventricular size is normal. There is mild concentric left ventricular hypertrophy. Overa ll left ventricular systolic function is normal with, an EF between 55 - 60 %. The right ventricle is normal in size. The left atrial size is normal. The right atrial size is normal. There is mild aortic valve sclerosis. There is no evidence of aortic regurgitation. Mild mitral annular calcification present. Mild mitral regurgitation is present. Mild tricuspid regurgitation present. There is moderate pulmonary hypertension. The right ventric ular systolic pressure, as measured by Doppler, is 50.82mmHg. Trace/mild (physiologic) pulmonic regurgitation. The aortic root size is normal. There is no pericardial effusion. CONCLUSIONS -------- 1. Sinus rhythm. 2. The left ventricular size is normal. 3. There is mild concentric left ventricular hypertrophy. 4. Overall left ventricular systolic function is normal with, an EF between 55 - 60 %. 5. The left atrial size is normal. 6. The right atrial size is normal. 7. There is mild aortic valve sclerosis. 8. Mild mitral annular calcification present. 9. Mild mitral regurgitation is present. 10. Mild tricuspid regurgitation present. 11. There is moderate pulmonary hypertension. 12. Trace/mild (physiologic) pulmonic regurgitation. 13. The aortic root size is normal. 14. There is no pericardial effusion. FIRE ALARM OPERATOR: Alis Green RDCS
[2018-03-28] MEDS: HYDROCHLOROTHIAZIDE 25 MG TAB PO SCH (13:32)
[2018-03-28] MEDS: SODIUM CHLORIDE 0.9% 1,000 ML IV SCH (17:04)
[2018-03-28 17:06] LABS: Glucose,Whole Blood 135 mg/dL (75-99)
[2018-03-28 20:04] LABS: Glucose,Whole Blood 132 mg/dL (75-99)
--- NOTE | 2018-03-28 22:20 | PN ---
PROGRESS NOTE DATE OF SERVICE: 03/28/2018. PRESENTING COMPLAINT: Tired. INTERVAL HISTORY: Patient presented with some shortness of breath with some COPD exacerbation, possibly some fluid overload. Did get one dose of IV Lasix. Feels better though a bit tired diet. The patient's daughter decided going home inpatient rehab. Overall feeling better, tolerating a diet. REVIEW OF SYSTEMS: Done for constitutional, cardiovascular, GI, pulmonary and relevant findings as above. CURRENT MEDICATIONS: Reviewed that include DuoNeb. PHYSICAL EXAMINATION: VITAL SIGNS: Temperature 97.7, pulse 86. Respiratory rate 14, blood pressure 105/58. Pulse ox 94 percent on 3 L. GENERAL APPEARANCE: Sitting up a bit more awake. EYES: Pupils equal. Conjunctivae pale. HEENT: External appearance of nose and ears normal. Oral cavity normal. NECK: JVD not raised. Mass not palpable. RESPIRATORY: Effort Normal. LUNGS: Decreased breath sounds. CARDIOVASCULAR: 1st and 2nd sounds normal. No edema. ABDOMEN: Soft. Minimal tenderness in the suprapubic area and suprapubic catheter. Liver and spleen not palpable. PSYCHIATRY: Alert and oriented x3. Mood and affect normal. INVESTIGATIONS: 2D echo shows preserved LV function. Potassium 4. ASSESSMENT: 1. Acute chronic obstructive pulmonary disease exacerbation in a patient who ran out of inhalers. 2. Chronic anemia from gastrointestinal blood loss. The patient has a history of duodenitis and gastritis. 3. Acute congestive heart failure exacerbation from diastolic dysfunction in a patient with known coronary artery disease, now improved. 4. Coronary artery disease. 5. Gastroesophageal reflux disease. 6. Essential hypertension. 7. Peripheral neuropathy, idiopathic. 8. Rheumatoid arthritis, bilateral. 9. History of bladder cancer with surgery, now with suprapubic catheter. 10.Abdominal aortic aneurysm 3.4 x 4.1 cm. PLAN: Care was discussed with the patient. He has not decided if he is going to rehab versus going home. The patient will still continue with breathing treatment when he goes home. social worker assistant, manager of case is involved. ANNMARIE / CHIO: [id number] /
[2018-03-29 06:58] LABS: Glucose,Whole Blood 124 mg/dL (75-99)
[2018-03-29 08:00] LABS: Anion Gap 6 mmol/L; Blood Urea Nitrogen 10 mg/dL (9-20); Calcium 8.4 mg/dL (8.4-10.2); Carbon Dioxide 29 mmol/L (22-30); Chloride 101 mmol/L (98-107); Glucose 110 mg/dL (74-99); Sodium 136 mmol/L (137-145)
[2018-03-29] MEDS: HYDROCHLOROTHIAZIDE 25 MG TAB PO SCH (09:04)
[2018-03-29] MEDS: PANTOPRAZOLE 40 MG TABLET PO SCH (09:04)
[2018-03-29] MEDS: ATORVASTATIN 40 MG TAB PO SCH (09:04)
[2018-03-29] MEDS: ASPIRIN 81 MG PO SCH (09:04)
[2018-03-29] MEDS: ALPRAZolam 0.5 MG TAB PO SCH (09:04)
[2018-03-29] MEDS: SERTRALINE 100 MG TAB PO SCH (09:04)
--- NOTE | 2018-03-29 09:48 | P.PN ---
Subjective Mr. Resendiz is seen and examined sitting up in bed eating breakfast. Echocardiogram obtained yesterday reveals preserved left ventricular systolic function with ejection fraction 55-60%, mild aortic valve sclerosis, mild MR and mild TR noted. Mild pulmonary hypertension with an RVSP 50.82 mmHg. Blood pressure 115/58 heart rate 72 afebrile maintaining oxygen saturation on nasal cannula. He denies symptoms of chest pain, shortness of breath, dizziness or palpitations. He states he has not been up out of bed since admission. Laboratory data reviewed, sodium 136, potassium 4.0, creatinine 0.89. He denies any bleeding per the rectum. Objective - Vital Signs Vital signs: Vital Signs Temp 97.9 F 03/29/18 05:00 Pulse 78 03/29/18 09:05 Resp 16 03/29/18 05:00 BP 115/58 03/29/18 05:00 Pulse Ox 97 03/29/18 09:05 Intake & Output 03/28/18 03/29/18 03/29/18 18:59 06:59 18:59 Intake Total 1070 Output Total 550 750 Balance -550 320 Weight 78 kg Intake: Oral 1070 Output: Urine 550 750 Other: Voiding Method Indwelling Catheter Indwelling Catheter - Exam GENERAL: Well-appearing, well-nourished and in no acute distress. NECK: Supple without JVD or thyromegaly. LUNGS: Breath sounds clear to auscultation bilaterally. Respiration equal and unlabored. No wheezes, rales or rhonchi. HEART: Regular rate and rhythm without murmurs, rubs or gallops. S1 and S2 heard. EXTREMITIES: Normal range of motion, no edema. No clubbing or cyanosis. Peripheral pulses intact. - Labs CBC & Chem 7: 03/26/18 21:35 03/29/18 07:10 Labs: Abnormal Lab Results - Last 24 Hours (Table) 03/28/18 03/28/18 03/28/18 Range/Units 12:04 17:01 20:02 Sodium (137-145) mmol/L Glucose (74-99) mg/dL POC Glucose (mg/dL) 114 H 135 H 132 H (75-99) mg/dL 03/29/18 03/29/18 Range/Units 06:56 07:10 Sodium 136 L (137-145) mmol/L Glucose 110 H (74-99) mg/dL POC Glucose (mg/dL) 124 H (75-99) mg/dL Assessment and Plan Assessment: ASSESSMENT Shortness of breath. May be related to anemia upon admission requiring blood transfusion as well as chronic COPD. Paroxysmal atrial fibrillation not on long-term anticoagulation contraindication due to risk of bleeding. Currently in sinus mechanism per auscultation. Acute GI bleed, GI following. History of sick sinus syndrome status post permanent pacemaker implantation Hypertension COPD Diabetes mellitus Carotid artery disease Dyslipidemia Urinary tract infection History of urologic cancer PLAN Stable from a cardiac perspective. Continue aspirin, atorvastatin and hctz as ordered. Follow up with Dr. Almazan in 2-3 weeks post discharge. We will continue to follow as needed. Nurse Practitioner note has been reviewed, I agree with a documented findings and plan of care. Patient was seen and examined.
[2018-03-29] MEDS: HYDROcodone/APAP 5-325MG 1 EACH TAB PO PRN (10:03)
[2018-03-29] MEDS: IPRATROPIUM-ALBUTEROL 3 ML NEB INHALATION SCH ×2 (10:08→10:45)
[2018-03-29] MEDS: BUDESONIDE 1 MG/2 ML NEBU INHALATION SCH (10:08)
[2018-03-29 11:20] LABS: Glucose,Whole Blood 105 mg/dL (75-99)
[2018-03-29 12:51] VITALS: BP 106/67; PULSE 74; RESP 18; TEMP 97.8
--- NOTE | 2018-03-29 15:33 | DS ---
DISCHARGE SUMMARY DATE OF SERVICE: 03/26/2018 DATE OF DISCHARGE: March 29, 2018 FINAL DIAGNOSES: 1. Acute chronic obstructive pulmonary disease exacerbation in a patient who ran out of his inhalers. 2. Chronic anemia from gastrointestinal blood loss. The patient has a history of duodenitis and gastritis. 3. Acute congestive heart failure exacerbation from diastolic dysfunction in a patient with known coronary artery disease, now improved. 4. Coronary artery disease. 5. Gastroesophageal reflux disease. 6. Essential hypertension. 7. Peripheral neuropathy idiopathic. 8. Rheumatoid arthritis bilateral. 9. History of bladder cancer with surgery, now with suprapubic catheter. 10.Abdominal aortic aneurysm 3.4 x 4.1 cm. HOSPITAL COURSE: This is a patient who follows at [facility] for bladder cancer. He has had surgery, the suprapubic catheter, presented with increasing pain in his suprapubic area and shortness of breath as he ran out of inhalers. The patient was given breathing treatments, to which he improved. There was an element of CHF given 1 dose of IV Lasix to which he responded. Lasix has been held off. Did not get anymore. Blood pressure is running a bit on the lower side. The patient was seen by Cardiology. Suprapubic pain is gone. 2D echo showed preserved LV function. PHYSICAL EXAMINATION: VITAL SIGNS: Temperature 97.8, pulse 74, respirations 18, blood pressure 106/67, pulse ox 96 percent on 2 L. GENERAL APPEARANCE: Sitting up. Lungs slightly decreased breath sounds. Cardiovascular: 1st and second sounds normal. INVESTIGATIONS: Potassium 4, BUN 10, creatinine 0.89. 2D echo as above. DISCHARGE MEDICATION: 1. Lipitor 40 mg p.o. daily. 2. Aspirin 81 mg a day. 3. Ventolin HFA 1 or 2 puffs q.6h p.r.n. 4. Ventolin nebulizer 2.5 q.4h p.r.n. 5. Zoloft 100 mg a day. 6. Hydrochlorothiazide 25 mg a day. 7. Omeprazole 20 mg a day. 8. Xanax 0.5 p.o. daily. 9. [place] 5 one tablet q.8h p.r.n. 10.DuoNeb q.i.d. DISPOSITION: [facility] in [place]. Follow with Shabbir Coelho family doctor. The patient to follow with Dr. Jace Almazan in 2 weeks. Patient to follow up with his urologist in [place], has an appointment next week. Discussion and discharge planning: More than 35 minutes. Copy to Shabbir Coelho. [email or web address] / CHIO: [id number] /
== END 2018-03-29 15:45 | DRG 190 ==
LOC: EC 15:15 → 5MS5E 15:41 → 5ONC 16:07
PROVIDERS: ADMIT Hospitalist; ATTEND Hospitalist
DX: J44.1 Chronic obstructive pulmonary disease with (acute) exacerbation (principal); I50.33 Acute on chronic diastolic (congestive) heart failure; K92.1 Melena; N39.0 Urinary tract infection, site not specified; I71.4 Abdominal aortic aneurysm, without rupture; K21.9 Gastro-esophageal reflux disease without esophagitis; Z87.11 Personal history of peptic ulcer disease; Z85.51 Personal history of malignant neoplasm of bladder; Z85.49 Personal history of malignant neoplasm of other male genital organs; D50.0 Iron deficiency anemia secondary to blood loss (chronic); D63.8 Anemia in other chronic diseases classified elsewhere; E11.42 Type 2 diabetes mellitus with diabetic polyneuropathy; E78.5 Hyperlipidemia, unspecified; H54.61 Unqualified visual loss, right eye, normal vision left eye; I11.0 Hypertensive heart disease with heart failure; I25.10 Atherosclerotic heart disease of native coronary artery without angina pectoris; I25.2 Old myocardial infarction; I27.20 Pulmonary hypertension, unspecified; I08.3 Combined rheumatic disorders of mitral, aortic and tricuspid valves; I48.0 Paroxysmal atrial fibrillation; Z87.19 Personal history of other diseases of the digestive system; K29.90 Gastroduodenitis, unspecified, without bleeding; K44.9 Diaphragmatic hernia without obstruction or gangrene; M06.9 Rheumatoid arthritis, unspecified; Z79.82 Long term (current) use of aspirin; Z79.899 Other long term (current) drug therapy; Z87.891 Personal history of nicotine dependence; Z95.0 Presence of cardiac pacemaker; Z99.81 Dependence on supplemental oxygen; Z98.41 Cataract extraction status, right eye; Z87.01 Personal history of pneumonia (recurrent)
CPT/HCPCS: 71046; 80048; 83036; 83880; 85025; 86850; 86900; 86901; 93005; 93306; 94640; 99285

== ENCOUNTER 2018-10-14 17:43 | Inpatient (IN) | payer MEDICARE ==
--- NOTE | 2018-10-14 17:51 | ED ---
Weakness HPI - General Stated complaint: Fell/poss uti Time Seen by Provider: 10/14/18 17:50 Source: RN notes reviewed, old records reviewed - History of Present Illness Initial comments: This is a 70-year-old male the ER for evaluation. Patient having transfer paperwork from COPD exacerbation fall weakness hypoxia. Patient has history of similar events. No recent travel or sick contacts, patient states after treatment at outside facility his symptoms are much improved. Patient again denying current complaints MD Complaint: generalized weakness (Shortness of breath and fall) -: hour(s) Location: generalized Severity: mild Severity scale (1-10): 2 Consistency: constant Improves with: none Worsens with: none Associated Symptoms: chest pain, shortness of breath - Related Data Home Medications Medication Instructions Recorded Confirmed Atorvastatin [Lipitor] 40 mg PO DAILY 07/30/16 03/26/18 Albuterol Inhaler [Ventolin Hfa 1 - 2 puff INHALATION RT-Q6H PRN 12/03/17 03/26/18 Inhaler] Albuterol Nebulized [Ventolin 2.5 mg INHALATION RT-Q4H PRN 12/03/17 03/26/18 Nebulized] Sertraline [Zoloft] 100 mg PO DAILY 12/03/17 03/26/18 Hydrochlorothiazide [Hydrodiuril] 25 mg PO DAILY 03/26/18 03/26/18 Omeprazole 20 mg PO DAILY 03/26/18 03/26/18 Previous Rx's Medication Instructions Recorded Aspirin EC [Ecotrin Low Dose] 81 mg PO DAILY #1 tablet. 08/02/16 ALPRAZolam [Xanax] 0.5 mg PO DAILY #3 tab 03/29/18 HYDROcodone/APAP 5-325MG [[place] 1 each PO Q8HR PRN #5 tab 03/29/18 5-325] Ipratropium-Albuterol Nebulize 3 ml INHALATION RT-QID ampul.sravanthi 03/29/18 [Duoneb 0.5 mg-3 mg/3 ml Soln] Allergies Allergy/AdvReac Type Severity Reaction Status Date / Time influenza virus vaccine, Allergy Unknown Verified 10/14/18 18:07 specific morphine Allergy Unknown Verified 10/14/18 18:07 ketorolac tromethamine AdvReac Severe GI Bleed Verified 10/14/18 18:07 [From Toradol] hydromorphone HCl AdvReac Hallucinati Verified 10/14/18 18:07 [From Dilaudid] ons Review of Systems ROS Statement: Those systems with pertinent positive or pertinent negative responses have been documented in the HPI. ROS Other: All systems not noted in ROS Statement are negative. Past Medical History Past Medical History: Asthma, Coronary Artery Disease (CAD), Chest Pain / Angina, COPD, Diabetes Mellitus, Eye Disorder, GERD/Reflux, Hypertension, Myocardial Infarction (MO), Pneumonia, Rheumatoid Arthritis (RA), Skin Disorder Additional Past Medical History / Comment(s): partial blindness rt eye, hx bowel obstruction, hx pancreatitis, freq rashes, diet control diabetic, neuropathy Last Myocardial Infarction Date:: 1994 History of Any Multi-Drug Resistant Organisms: None Reported Past Surgical History: Cholecystectomy, Pacemaker Additional Past Surgical History / Comment(s): Right Carotid endarterectomy, Right knee arthroscopy, henri shoulder rotator cuff, rt cataract Past Anesthesia/Blood Transfusion Reactions: Motion Sickness Type of Cardiac Device: Unknown Device Placement Date:: 1998 Past Psychological History: Depression Smoking Status: Former smoker Past Alcohol Use History: Rare Additional Past Alcohol Use History / Comment(s): quit smoking 1993, smoked 2 PPD for 30 yrs Past Drug Use History: None Reported - Past Family History Mother Family Medical History: No Reported History General Exam General appearance: alert, in no apparent distress Head exam: Present: atraumatic, normocephalic, normal inspection Eye exam: Present: normal appearance, PERRL, EOMI. Absent: scleral icterus, conjunctival injection, periorbital swelling ENT exam: Present: normal exam, mucous membranes moist Neck exam: Present: normal inspection. Absent: tenderness, meningismus, lymphadenopathy Respiratory exam: Present: normal lung sounds bilaterally, wheezes. Absent: respiratory distress, rales, rhonchi, stridor Cardiovascular Exam: Present: regular rate, normal rhythm, normal heart sounds. Absent: systolic murmur, diastolic murmur, rubs, gallop, clicks GI/Abdominal exam: Present: soft, normal bowel sounds. Absent: distended, tenderness, guarding, rebound, rigid Extremities exam: Present: normal inspection, full ROM, normal capillary refill. Absent: tenderness, pedal edema, joint swelling, calf tenderness Back exam: Present: normal inspection Neurological exam: Present: alert, oriented X3, CN II-XII intact Psychiatric exam: Present: normal affect, normal mood Skin exam: Present: warm, dry, intact, normal color. Absent: rash Course Vital Signs 10/14/18 17:54 Temperature 97.8 F Pulse Rate 81 Respiratory 14 Rate Blood Pressure 145/71 O2 Sat by Pulse 98 Oximetry - Reevaluation(s) Reevaluation #1: 10/14/18 19:00 Medical record is reviewed Reevaluation #2: 10/14/18 19:00 Transfer paperwork is reviewed Medical Decision Making - Medical Decision Making 70 male the ER for evaluation. Patient transfer from outpatient hospital. COPD with hypoxia and rib fracture. Positive UTI. We'll be admitted for alcohol Disposition Clinical Impression: COPD (chronic obstructive pulmonary disease), Fall, Rib fracture, Chest pain Disposition: ADMITTED IP TO THIS HOSP Condition: Fair Is patient prescribed a controlled substance at d/c from ED?: No Referrals: Arjun Coelho MD [Primary Care Provider] - 1-2 days
[2018-10-14] MEDS ORDERED: methylPREDNISolone SOD SUCCI 125 MG/2 ML VIAL IV STA (19:03)
[2018-10-14] MEDS ORDERED: IPRATROPIUM-ALBUTEROL 3 ML NEB INHALATION STA (19:03)
[2018-10-14] MEDS ORDERED: AZITHROMYCIN 500 MG in SODIUM CHLORIDE 0.9% 250 ML IVPB STA (19:05)
[2018-10-14] MEDS: IPRATROPIUM-ALBUTEROL 3 ML NEB INHALATION SCH (21:02)
[2018-10-15] MEDS: methylPREDNISolone SOD SUCCI 125 MG/2 ML VIAL IV SCH ×5 (01:26→23:45)
[2018-10-15 07:07] LABS: Glucose,Whole Blood 146 mg/dL (75-99)
[2018-10-15] MEDS: INSULIN ASPART (NovoLOG) 100 UNIT/ML VIAL SQ SCH ×4 (07:52→21:43)
[2018-10-15] MEDS: IPRATROPIUM-ALBUTEROL 3 ML NEB INHALATION SCH ×4 (08:20→19:56)
[2018-10-15] MEDS ORDERED: AZITHROMYCIN 500 MG in SODIUM CHLORIDE 0.9% 250 ML IVPB SCH (09:00)
[2018-10-15 10:28] VITALS: BMI 27.8
[2018-10-15 11:25] LABS: Glucose,Whole Blood 135 mg/dL (75-99)
[2018-10-15] MEDS ORDERED: HYDROcodone/APAP 5-325MG 1 EACH TAB PO PRN (14:27)
--- NOTE | 2018-10-15 16:05 | P.HPIM ---
History of Present Illness H&P Date: 10/15/18 Chief Complaint: Patient transferred from [facility] Mr. Resendiz is a 78-year-old male with the past medical history of coronary artery disease, COPD oxygen dependent, GERD, hypertension, peripheral neuropathy and rheumatoid arthritis, bladder cancer status post suprapubic catheter placement transferred from [facility] to [facility] ED. Patient is a very poor historian. His girlfriend and sister at the bedside who helped me in obtaining the patient's history. Patient has been having progressive weakness of his lower extremities and has had recurrent falls at [facility]. He stumbled and fell on 10/10. After that he complained of right upper back pain and right hip pain ED and patient had x-rays at that time which was negative for any acute cardiopulmonary process FRACTURES. Because of the discomfort he was moved to [facility] for rehab. In the rehab stay patient was found to have increased respiratory rate, decreased saturations on his 3 L of oxygen and also felt warm so he was transferred to [facility]. At [place] the patient had CT of the chest abdomen and pelvis which were significant for nondisplaced fractures of the right sided ninth and 10th ribs and also a compression deformity of L1. There was also 3.7 cm distal abdominal aortic aneurysm and 13 mm lesion that is suggestive of pleural-based consolidation in the right upper lobe. Patient also had an episode of hypotension but with IV fluids his blood pressure picked up. Patient had blood cultures drawn there and transferred to [facility] ED at [place]. Review of systems - complete review of systems could not be done as the patient has cognition issues. But patient states that he has been having difficulty in breathing. He denies having any chest pain or palpitations. He denies having any abdominal pain nausea vomiting or diarrhea. He mentions that he takes care of his suprapubic catheter and denies having any pelvic pain. He complains of generalized weakness and fatigue. Patient's medical records from [facility] have been reviewed. Past Medical History Past Medical History: Asthma, Coronary Artery Disease (CAD), Chest Pain / Angina, COPD, Diabetes Mellitus, Eye Disorder, GERD/Reflux, Hypertension, Myocardial Infarction (PR), Pneumonia, Rheumatoid Arthritis (RA), Skin Disorder Additional Past Medical History / Comment(s): partial blindness rt eye, hx bowel obstruction, hx pancreatitis, freq rashes, diet control diabetic, neuropathy penile cancer Last Myocardial Infarction Date:: 1994 History of Any Multi-Drug Resistant Organisms: None Reported Past Surgical History: Cholecystectomy, Pacemaker Additional Past Surgical History / Comment(s): Right Carotid endarterectomy, Right knee arthroscopy, henri shoulder rotator cuff, rt cataract, superpubic cath in place Past Anesthesia/Blood Transfusion Reactions: Motion Sickness Type of Cardiac Device: Unknown Device Placement Date:: 1998 Past Psychological History: Depression Smoking Status: Former smoker Past Alcohol Use History: Rare Additional Past Alcohol Use History / Comment(s): quit smoking 1993, smoked 2 PPD for 30 yrs Past Drug Use History: None Reported - Past Family History Mother Family Medical History: No Reported History Medications and Allergies Home Medications Medication Instructions Recorded Confirmed Type Atorvastatin [Lipitor] 40 mg PO DAILY 07/30/16 03/26/18 History Aspirin EC [Ecotrin Low Dose] 81 mg PO DAILY #1 tablet. 08/02/16 03/26/18 Rx Albuterol Inhaler [Ventolin Hfa 1 - 2 puff INHALATION RT-Q6H PRN 12/03/17 10/15/18 History Inhaler] Albuterol Nebulized [Ventolin 2.5 mg INHALATION RT-Q4H PRN 12/03/17 03/26/18 History Nebulized] Sertraline [Zoloft] 100 mg PO DAILY 12/03/17 03/26/18 History Hydrochlorothiazide [Hydrodiuril] 25 mg PO DAILY 03/26/18 03/26/18 History Omeprazole 20 mg PO DAILY 03/26/18 03/26/18 History ALPRAZolam [Xanax] 0.5 mg PO DAILY #3 tab 03/29/18 Rx HYDROcodone/APAP 5-325MG [[place] 1 each PO Q8HR PRN #5 tab 03/29/18 Rx 5-325] Ipratropium-Albuterol Nebulize 3 ml INHALATION RT-QID ampul.neb 03/29/18 Rx [Duoneb 0.5 mg-3 mg/3 ml Soln] ALPRAZolam [Xanax] 0.25 mg PO BID PRN 10/15/18 10/15/18 History Pantoprazole Sodium [Protonix] 40 mg PO DAILY 10/15/18 10/15/18 History Allergies Allergy/AdvReac Type Severity Reaction Status Date / Time influenza virus vaccine, Allergy Unknown Verified 10/14/18 18:07 specific morphine Allergy Unknown Verified 10/14/18 18:07 ketorolac tromethamine AdvReac Severe GI Bleed Verified 10/14/18 18:07 [From Toradol] hydromorphone HCl AdvReac Hallucinati Verified 10/14/18 18:07 [From Dilaudid] ons Physical Exam Vitals: Vital Signs Temp Pulse Pulse Pulse Resp BP BP 10/15/18 11:56 76 10/15/18 11:49 72 10/15/18 11:46 97.4 F L 82 16 135/74 10/15/18 08:33 72 10/15/18 08:24 72 10/15/18 05:00 98.3 F 77 16 134/79 10/14/18 22:45 93 18 10/14/18 22:10 97.5 F L 100 18 142/85 10/14/18 21:20 76 10/14/18 21:12 76 10/14/18 21:10 76 10/14/18 21:05 10/14/18 21:02 80 10/14/18 17:54 97.8 F 81 14 145/71 Pulse Ox 10/15/18 11:56 10/15/18 11:49 10/15/18 11:46 96 10/15/18 08:33 10/15/18 08:24 94 L 10/15/18 05:00 94 L 10/14/18 22:45 10/14/18 22:10 91 L 10/14/18 21:20 10/14/18 21:12 10/14/18 21:10 10/14/18 21:05 96 10/14/18 21:02 10/14/18 17:54 98 Intake and Output 10/14/18 10/15/18 10/15/18 22:59 06:59 14:59 Intake Total 790 350 Balance 790 350 Intake: Amount of Fluid Infused ( 200 ml) Intake, IV Titration 250 Amount Azithromycin 500 mg In 250 Sodium Chloride 0.9% 250 ml @ 250 mls/hr IVPB DAILY [facility] Rx#:[id number] Oral 590 100 Other: Weight 80.7 kg 80.7 kg GEN. APPEARANCE: Patient looks to be in mild respiratory distress and at times confused HEAD EXAM: atraumatic, normocephalic, normal inspection EYE EXAM: Mild pallor. No scleral icterus, conjunctival injection, periorbital swelling NECK EXAM: normal inspection. Absent: tenderness, meningismus, full ROM, lym phadenopathy RESPIRATORY EXAM: Decreased breath sounds in all lung ribeiro. No wheezes. CARDIOVASCULAR EXAM: S1-S2 heard. GI/ABDOMINAL EXAM: Abdomen is soft nontender. Normal bowel sounds. Patient has a suprapubic catheter in place. Catheter site looks clean and dry and no signs of infection. EXTREMITIES EXAM: No peripheral edema. No calf tenderness. 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 NEUROLOGICAL EXAM: alert, oriented X1-2 , generalized weakness. No focal neurological deficits PSYCHIATRIC EXAM: normal affect, normal mood SKIN EXAM: Patient has multiple bruises on his bilateral upper extremities. Skin is pain and fragile. Results Labs: Abnormal Lab Results - Last 24 Hours (Table) 10/15/18 10/15/18 Range/Units 07:05 11:23 POC Glucose (mg/dL) 146 H 135 H (75-99) mg/dL Thrombosis Risk Factor Assmnt - Choose All That Apply Any of the Below Risk Factors Present?: Yes Each Factor Represents 1 point: Abnormal pulmonary function (COPD), Medical pt on bed rest Other Risk Factors: Yes Each Risk Factor Represents 2 Points: Patient confined to bed Each Risk Factor Represents 3 Points: Age 75 years or older Other congenital or acquired thrombophilia - If yes, enter type in comment: No Thrombosis Risk Factor Assessment Total Risk Factor Score: 7 Thrombosis Risk Factor Assessment Level: High Risk Assessment and Plan Assessment: ASSESSMENT Acute hypoxic respiratory failure Acute exacerbation of COPD Pleural-based consolidation in the right upper lobe Multiple falls Generalized weakness Acute nondisplaced fracture of ninth and 10th ribs on the right side Lumbar compression fracture of L1 without retropulsion Memory impairment Tremors Essential hypertension History of coronary artery disease Peripheral neuropathy bilateral rheumatoid arthritis History of bladder cancer status post surgery now has suprapubic catheter in place Abdominal aortic aneurysm stable Chronic anemia PLAN: Patient is currently being treated with ceftriaxone and azithromycin as he has pleural-based consolidation in the right upper lobe as per the CAT scan that he had it [facility] and also because the patient had required more oxygen in the past couple of days along with difficulty in breathing. Continue with breathing treatments and IV steroids. Patient has nondisplaced fractures of the ninth and 10th rib so conservative management. GI DVT prophylaxis. PT OT consult for patient's generalized weakness. As the patient has memory impairment with gait instability and tremors, Parkinson's disease should also be taken into consideration. Discussed the treatment plan with his family members at the bedside. Overall prognosis is guarded. Further recommendations to follow depending on the progress of the patient.
[2018-10-15 16:58] LABS: Anion Gap 10 mmol/L; Blood Urea Nitrogen 26 mg/dL (9-20); Calcium 9.1 mg/dL (8.4-10.2); Carbon Dioxide 24 mmol/L (22-30); Chloride 102 mmol/L (98-107); Glucose 121 mg/dL (74-99); Potassium 4.1 mmol/L (3.5-5.1); Sodium 136 mmol/L (137-145)
[2018-10-15 16:59] LABS: Anisocytosis Marked; HCT 40.2 % (39.0-53.0); HGB 12.2 gm/dL (13.0-17.5); Hypochromasia Moderate; MCH 28.2 pg (25.0-35.0); MCHC 30.4 g/dL (31.0-37.0); MCV 92.7 fL (80.0-100.0); Macrocytosis Slight; Mean Platelet Volume 8.5; Microcytosis Slight; Platelet Count 204 k/uL (150-450); RBC 4.34 m/uL (4.30-5.90)
[2018-10-15 17:00] LABS: RDW 25.2 % (11.5-15.5)
[2018-10-15 17:03] LABS: Glucose,Whole Blood 146 mg/dL (75-99)
[2018-10-15 17:25] LABS: Band Neutrophils % 4 %; Hypochromasia (M) Present; Lymphocytes # (M) 0.37 k/uL (1.0-4.8); Monocytes # (M) 0.12 k/uL (0-1.0); Neutrophils % (M) 88 %; Nucleated Red Blood Cells 0 /100 WBC (0-0); Poikilocytosis (M) Present; Target Cells Present; Total Cells Counted 100; WBC 6.2 k/uL (3.8-10.6)
[2018-10-15] MEDS: ENOXAPARIN 40 MG/0.4 ML SYRINGE SQ SCH (17:28)
[2018-10-15] MEDS: PANTOPRAZOLE 40 MG TABLET PO SCH (17:29)
[2018-10-15] MEDS: SERTRALINE 100 MG TAB PO SCH (17:29)
[2018-10-15] MEDS: HYDROCHLOROTHIAZIDE 25 MG TAB PO SCH (17:29)
[2018-10-15] MEDS: ASPIRIN 81 MG PO SCH (17:29)
[2018-10-15] MEDS: ATORVASTATIN 40 MG TAB PO SCH (17:29)
[2018-10-15] MEDS: SYMBICORT 160-4.5 MCG INHALER INHALATION SCH (19:56)
[2018-10-15 20:40] LABS: Glucose,Whole Blood 203 mg/dL (75-99)
[2018-10-16] MEDS: methylPREDNISolone SOD SUCCI 125 MG/2 ML VIAL IV SCH ×4 (06:00→23:14)
[2018-10-16] MEDS: SYMBICORT 160-4.5 MCG INHALER INHALATION SCH ×2 (06:54→19:42)
[2018-10-16] MEDS: IPRATROPIUM-ALBUTEROL 3 ML NEB INHALATION SCH ×4 (06:54→19:42)
[2018-10-16 07:06] LABS: Glucose,Whole Blood 150 mg/dL (75-99)
[2018-10-16] MEDS: ASPIRIN 81 MG PO SCH (07:59)
[2018-10-16] MEDS: HYDROCHLOROTHIAZIDE 25 MG TAB PO SCH (07:59)
[2018-10-16] MEDS: SERTRALINE 100 MG TAB PO SCH (07:59)
[2018-10-16] MEDS: ATORVASTATIN 40 MG TAB PO SCH (07:59)
[2018-10-16] MEDS: AZITHROMYCIN 500 MG TAB PO SCH (07:59)
[2018-10-16] MEDS: PANTOPRAZOLE 40 MG TABLET PO SCH (07:59)
[2018-10-16] MEDS: ENOXAPARIN 40 MG/0.4 ML SYRINGE SQ SCH (08:00)
[2018-10-16] MEDS: INSULIN ASPART (NovoLOG) 100 UNIT/ML VIAL SQ SCH ×4 (08:09→21:02)
[2018-10-16 11:53] LABS: Glucose,Whole Blood 142 mg/dL (75-99)
--- NOTE | 2018-10-16 13:25 | P.PN ---
Subjective Progress Note Date: 10/16/18 Principal diagnosis: Acute hypoxic respiratory failure Mr. Resendiz is a 78-year-old male with the past medical history of coronary artery disease, COPD oxygen dependent, GERD, hypertension, peripheral neuropathy and rheumatoid arthritis, bladder cancer status post suprapubic catheter placement transferred from [facility] to [facility] ED. Patient is a very poor historian. His girlfriend and sister at the bedside who helped me in obtaining the patient's history. Patient has been having progressive weakness of his lower extremities and has had recurrent falls at [facility]. He stumbled and fell on 10/10. After that he complained of right upper back pain and right hip pain ED and patient had x-rays at that time which was negative for any acute cardiopulmonary process FRACTURES. Because of the discomfort he was moved to [facility] for rehab. In the rehab stay patient was found to have increased respiratory rate, decreased saturations on his 3 L of oxygen and also felt warm so he was transferred to [facility]. At [place] the patient had CT of the chest abdomen and pelvis which were significant for nondisplaced fractures of the right sided ninth and 10th ribs and also a c ompression deformity of L1. There was also 3.7 cm distal abdominal aortic aneurysm and 13 mm lesion that is suggestive of pleural-based consolidation in the right upper lobe. Patient also had an episode of hypotension but with IV fluids his blood pressure picked up. Patient had blood cultures drawn there and transferred to [facility] ED at [place]. On 10/16/2018 - patient is comfortably sitting up in the bed having his lunch. Patient complains of ongoing difficulty in breathing. Patient had physical therapy this morning and was very short of breath. Patient denies having any fevers chills or rigors. He continues to have coarse tremors. Patient denies having any abdominal pain, nausea vomiting or diarrhea. Patient denies having any chest pain or palpitations. Active Medications Hydrocodone Bitart/Acetaminophen ([place] 5-325) 1 each PO Q8HR PRN PRN Reason: Pain Last Admin: 10/15/18 21:43 Dose: 1 each Documented by: Albuterol/Ipratropium (Duoneb 0.5 Mg-3 Mg/3 Ml Soln) 3 ml INHALATION RT-QID [facility] Last Admin: 10/16/18 11:09 Dose: 3 ml Documented by: Aspirin (Aspirin) 81 mg PO DAILY [facility] Last Admin: 10/16/18 07:59 Dose: 81 mg Documented by: Atorvastatin Calcium (Lipitor) 40 mg PO DAILY [facility] Last Admin: 10/16/18 07:59 Dose: 40 mg Documented by: Azithromycin (Zithromax) 500 mg PO DAILY [facility] Last Admin: 10/16/18 07:59 Dose: 500 mg Documented by: Budesonide/Formoterol Fumarate (Symbicort 160-4.5 Mcg Inhaler) 2 puff INHALATIO N RT-BID [facility] Last Admin: 10/16/18 06:54 Dose: 2 puff Documented by: Enoxaparin Sodium (Lovenox) 40 mg SQ DAILY [facility] Last Admin: 10/16/18 08:00 Dose: 40 mg Documented by: Hydrochlorothiazide (Hydrodiuril) 25 mg PO DAILY [facility] Last Admin: 10/16/18 07:59 Dose: 25 mg Documented by: Ceftriaxone Sodium 1 gm/ (Sodium Chloride) 50 mls @ 100 mls/hr IVPB Q24HR [facility] Last Admin: 10/16/18 07:59 Dose: 100 mls/hr Documented by: Insulin Aspart (Novolog) 0 unit SQ ACHS [facility]; Protocol Last Admin: 10/16/18 12:34 Dose: 100 unit Documented by: Methylprednisolone Sodium Succinate (Solu-Medrol) 60 mg IV Q6HR [facility] Last Admin: 10/16/18 12:34 Dose: 60 mg Documented by: Pantoprazole Sodium (Protonix) 40 mg PO AC-BRKFST [facility] Last Admin: 10/16/18 07:59 Dose: 40 mg Documented by: Sertraline HCl (Zoloft) 100 mg PO DAILY [facility] Last Admin: 10/16/18 07:59 Dose: 100 mg Documented by: Objective - Vital Signs Vital signs: Vital Signs Temp 98.2 F 10/16/18 11:10 Pulse 80 10/16/18 11:25 Resp 18 10/16/18 11:10 BP 125/65 10/16/18 11:10 Pulse Ox 97 10/16/18 11:10 Intake & Output 10/15/18 10/16/18 10/16/18 18:59 06:59 18:59 Intake Total 300 300 Output Total 300 400 Balance 0 -100 Weight 80.7 kg Intake: Intake, IV Titration 300 Amount Azithromycin 500 mg In 250 Sodium Chloride 0.9% 250 ml @ 250 mls/hr IVPB DAILY [facility] Rx#:[id number] cefTRIAXone 1 gm In 50 Sodium Chloride 0.9% 50 ml @ 100 mls/hr IVPB Q24HR [facility] Rx#:[id number] Oral 300 Output: Urine 300 400 Suprapubic 400 Other: Voiding Method Indwelling Catheter Indwelling Catheter - Exam EN. APPEARANCE: Patient looks to be in mild respiratory distress and at times confused HEAD EXAM: atraumatic, normocephalic, normal inspection EYE EXAM: Mild pallor. No scleral icterus, conjunctival injection, periorbital swelling NECK EXAM: normal inspection. Absent: tenderness, meningismus, full ROM, lymphadenopathy RESPIRATORY EXAM: Decreased breath sounds in all lung ribeiro. No wheezes. CARDIOVASCULAR EXAM: S1-S2 heard. GI/ABDOMINAL EXAM: Abdomen is soft nontender. Normal bowel sounds. Patient has a suprapubic catheter in place. Catheter site looks clean and dry and no signs of infection. EXTREMITIES EXAM: No peripheral edema. No calf tenderness. 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 NEUROLOGICAL EXAM: alert, oriented X1-2 , generalized weakness. No focal neurological deficits PSYCHIATRIC EXAM: normal affect, normal mood SKIN EXAM: Patient has multiple bruises on his bilateral upper extremities. Skin is thin and fragile. - Labs CBC & Chem 7: 10/15/18 16:20 10/15/18 16:20 Labs: Abnormal Lab Results - Last 24 Hours (Table) 10/15/18 10/15/18 10/15/18 Range/Units 16:20 16:20 17:01 Hgb 12.2 L (13.0-17.5) gm/dL MCHC 30.4 L (31.0-37.0) g/dL RDW 25.2 H (11.5-15.5) % Lymphocytes # (Manual) 0.37 L (1.0-4.8) k/uL Sodium 136 L (137-145) mmol/L BUN 26 H (9-20) mg/dL Glucose 121 H (74-99) mg/dL POC Glucose (mg/dL) 146 H (75-99) mg/dL 10/15/18 10/16/18 10/16/18 Range/Units 20:39 07:04 11:52 Hgb (13.0-17.5) gm/dL MCHC (31.0-37.0) g/dL RDW (11.5-15.5) % Lymphocytes # (Manual) (1.0-4.8) k/uL Sodium (137-145) mmol/L BUN (9-20) mg/dL Glucose (74-99) mg/dL POC Glucose (mg/dL) 203 H 150 H 142 H (75-99) mg/dL Assessment and Plan Assessment: ASSESSMENT Acute hypoxic respiratory failure Acute exacerbation of COPD Pleural-based consolidation in the right upper lobe Multiple falls Generalized weakness Acute nondisplaced fracture of ninth and 10th ribs on the right side Lumbar compression fracture of L1 without retropulsion Memory impairment Tremors Essential hypertension History of coronary artery disease Peripheral neuropathy bilateral rheumatoid arthritis History of bladder cancer status post surgery now has suprapubic catheter in place Abdominal aortic aneurysm stable Chronic anemia PLAN: Patient is currently being treated with ceftriaxone and azithromycin as he has pleural-based consolidation in the right upper lobe as per the CAT scan that he had it [facility] and also because the patient had required more oxygen in the past couple of days along with difficulty in breathing. Continue with breathing treatments and IV steroids. Patient has nondisplaced fractures of the ninth and 10th rib so conservative management. GI/DVT prophylaxis. PT OT consult for patient's generalized weakness. As the patient has memory impairment with gait instability and tremors, Parkinson's disease should also be taken into consideration. As per the discussion with family, he would need placement- social welfare clerk on board. Overall prognosis is guarded. Further recommendations to follow depending on the progress of the patient.
[2018-10-16 17:13] LABS: Glucose,Whole Blood 135 mg/dL (75-99)
[2018-10-16] MEDS ORDERED: NON-FORMULARY DRUG (Fluticasone/Salmeterol [Advair 250-50 Diskus] 1 PUFF) INHALATION SCH (20:00)
[2018-10-16 20:41] LABS: Glucose,Whole Blood 191 mg/dL (75-99)
[2018-10-17] MEDS: methylPREDNISolone SOD SUCCI 125 MG/2 ML VIAL IV SCH ×4 (05:25→23:33)
[2018-10-17 06:58] LABS: Glucose,Whole Blood 137 mg/dL (75-99)
[2018-10-17 07:02] LABS: Anisocytosis Marked; Basophils % (A) 0 %; Eosinophils % (A) 0 %; HCT 31.6 % (39.0-53.0); Hypochromasia Slight; Lymphocytes # (A) 0.4 k/uL (1.0-4.8); Lymphocytes % (A) 4 %; MCH 27.2 pg (25.0-35.0); MCHC 30.4 g/dL (31.0-37.0); MCV 89.5 fL (80.0-100.0); Macrocytosis Slight; Mean Platelet Volume 8.2; Microcytosis Slight; Monocytes # (A) 0.3 k/uL (0-1.0); Monocytes % (A) 3 %; Neutrophils # (A) 8.6 k/uL (1.3-7.7); Neutrophils % (A) 92 %; Platelet Count 268 k/uL (150-450); RBC 3.53 m/uL (4.30-5.90); RDW 24.9 % (11.5-15.5); WBC 9.3 k/uL (3.8-10.6)
[2018-10-17 07:12] LABS: HGB 9.6 gm/dL (13.0-17.5)
[2018-10-17 07:37] LABS: Anion Gap 7 mmol/L; Blood Urea Nitrogen 36 mg/dL (9-20); Calcium 8.9 mg/dL (8.4-10.2); Carbon Dioxide 30 mmol/L (22-30); Chloride 104 mmol/L (98-107); Glucose 128 mg/dL (74-99); Potassium 3.5 mmol/L (3.5-5.1); Sodium 141 mmol/L (137-145)
[2018-10-17] MEDS: INSULIN ASPART (NovoLOG) 100 UNIT/ML VIAL SQ SCH ×4 (07:43→20:49)
[2018-10-17] MEDS: SYMBICORT 160-4.5 MCG INHALER INHALATION SCH ×2 (07:59→19:31)
[2018-10-17] MEDS: IPRATROPIUM-ALBUTEROL 3 ML NEB INHALATION SCH ×4 (07:59→19:31)
[2018-10-17] MEDS: PANTOPRAZOLE 40 MG TABLET PO SCH (08:20)
[2018-10-17] MEDS: AZITHROMYCIN 500 MG TAB PO SCH (08:20)
[2018-10-17] MEDS: ATORVASTATIN 40 MG TAB PO SCH (08:20)
[2018-10-17] MEDS: HYDROCHLOROTHIAZIDE 25 MG TAB PO SCH (08:20)
[2018-10-17] MEDS: ENOXAPARIN 40 MG/0.4 ML SYRINGE SQ SCH (08:20)
[2018-10-17] MEDS: SERTRALINE 100 MG TAB PO SCH (08:20)
[2018-10-17] MEDS: ASPIRIN 81 MG PO SCH (08:20)
[2018-10-17 11:15] VITALS: RESP 16
[2018-10-17 11:27] LABS: Glucose,Whole Blood 128 mg/dL (75-99)
--- NOTE | 2018-10-17 14:27 | P.DS ---
Providers Date of admission: 10/14/18 19:06 Attending physician: Delmar Arreola Primary care physician: Arjun Coelho MD Hospital Course: 78-year-old male with the past medical history of coronary artery disease, COPD oxygen dependent, GERD, hypertension, peripheral neuropathy and rheumatoid arthritis, bladder cancer status post suprapubic catheter placement transferred from [facility] to [facility] ED. Patient is a very poor historian. His girlfriend and sister at the bedside who helped me in obtaining the patient's history. Patient has been having progressive weakness of his lower extremities and has had recurrent falls at [facility]. He stumbled and fell on 10/10. After that he complained of right upper back pain and right hip pain ED and patient had x-rays at that time which was negative for any acute cardiopulmonary process FRACTURES. Because of the discomfort [facility]. In the rehab stay patient was found to have increased respiratory rate, decreased saturations on his 3 L of oxygen and also felt warm so he was transferred to [facility]. At [place] the patient had CT of the chest abdomen and pelvis which were significant for nondisplaced fractures of the right sided ninth and 10th ribs and also a compression deformity of L1. There was also 3.7 cm distal abdominal aortic aneurysm and 13 mm lesion that is suggestive of pleural-based consolidation in the right upper lobe. Patient also had an episode of hypotension but with IV fluids his blood pressure picked up. Patient had blood cultures drawn there and transferred to [facility] ED at [place]. On 10/16/2018 - patient is comfortably sitting up in the bed having his lunch. Patient complains of ongoing difficulty in breathing. Patient had physical therapy this morning and was very short of breath. Patient denies having any fevers chills or rigors. He continues to have coarse tremors. Patient denies having any abdominal pain, nausea vomiting or diarrhea. Patient denies having any chest pain or palpitations. 10/17/2018 Patient overall is clinically doing well good air entry bilateral lung ribeiro patient is pretty status is at his baseline. Patient will be discharged today to subacute rehabilitation. PHYSICAL EXAMINATION: GENERAL: The patient is alert and oriented x3, not in any acute distress. Well developed, well nourished. HEENT: Pupils are round and equally reacting to light. EOMI. No scleral icterus. No conjunctival pallor. Normocephalic, atraumatic. No pharyngeal erythema. No thyromegaly. CARDIOVASCULAR: S1 and S2 present. No murmurs, rubs, or gallops. PULMONARY: Chest is clear to auscultation, no wheezing or crackles. ABDOMEN: Soft, nontender, nondistended, normoactive bowel sounds. No palpable organomegaly. MUSCULOSKELETAL: No joint swelling or deformity. EXTREMITIES: No cyanosis, clubbing, or pedal edema. NEUROLOGICAL: Gross neurological examination did not reveal any focal deficits. SKIN: No rashes. Assessment and Plan Acute hypercapnic respiratory failure secondary to COPD exacerbation Pleural-based consolidation in the right upper lobe, patient the is being treated for pneumonia patient related to follow up with the pulmonology as an outpatient. Multiple falls Generalized weakness Acute nondisplaced fracture of ninth and 10th ribs on the right side Lumbar compression fracture of L1 without retropulsion Memory impairment Tremors Essential hypertension History of coronary artery disease Peripheral neuropathy bilateral rheumatoid arthritis History of bladder cancer status post surgery now has suprapubic catheter in place Abdominal aortic aneurysm stable Patient Condition at Discharge: Fair Plan - Discharge Summary Discharge Rx Participant: No New Discharge Prescriptions: New predniSONE 10 mg PO DAILY #30 tab Cefuroxime Axetil [Ceftin] 500 mg PO BID #10 tab Continue Albuterol Inhaler [Ventolin Hfa Inhaler] 1 - 2 puff INHALATION RT-Q6H PRN PRN Reason: Shortness Of Breath Sertraline [Zoloft] 100 mg PO DAILY Omeprazole 20 mg PO DAILY Hydrochlorothiazide [Hydrodiuril] 25 mg PO DAILY Pantoprazole Sodium [Protonix] 40 mg PO DAILY Silver Sulfadiazine 1 applic TOPICAL DAILY PRN PRN Reason: Wound Healing Nitroglycerin Sl Tabs [Nitrostat] 0.4 mg SUBLINGUAL Q5M PRN PRN Reason: Chest Pain Menthol [Biofreeze] 1 applic TOPICAL QID PRN PRN Reason: Pain Umeclidinium [place] [Incruse Ellipta] 1 puff INHALATION RT-DAILY Silver Sulfadiazine 1 applic TOPICAL DAILY Lactulose [Constulose] 10 gm PO DAILY Fluticasone/Salmeterol [Advair 250-50 Diskus] 1 puff INHALATION RT-BID Atorvastatin [Lipitor] 20 mg PO HS Discontinued ALPRAZolam [Xanax] 0.25 mg PO BID PRN PRN Reason: Anxiety Cephalexin [Keflex] 500 mg PO TID ALPRAZolam [Xanax] 0.25 mg PO TID Discharge Medication List Albuterol Inhaler [Ventolin Hfa Inhaler] 1 - 2 puff INHALATION RT-Q6H PRN 12/03/17 [History] Sertraline [Zoloft] 100 mg PO DAILY 12/03/17 [History] Hydrochlorothiazide [Hydrodiuril] 25 mg PO DAILY 03/26/18 [History] Omeprazole 20 mg PO DAILY 03/26/18 [History] Pantoprazole Sodium [Protonix] 40 mg PO DAILY 10/15/18 [History] Atorvastatin [Lipitor] 20 mg PO HS 10/16/18 [History] Fluticasone/Salmeterol [Advair 250-50 Diskus] 1 puff INHALATION RT-BID 10/16/18 [History] Lactulose [Constulose] 10 gm PO DAILY 10/16/18 [History] Menthol [Biofreeze] 1 applic TOPICAL QID PRN 10/16/18 [History] Nitroglycerin Sl Tabs [Nitrostat] 0.4 mg SUBLINGUAL Q5M PRN 10/16/18 [History] Silver Sulfadiazine 1 applic TOPICAL DAILY 10/16/18 [History] Silver Sulfadiazine 1 applic TOPICAL DAILY PRN 10/16/18 [History] Umeclidinium [place] [Incruse Ellipta] 1 puff INHALATION RT-DAILY 10/16/18 [History] Cefuroxime Axetil [Ceftin] 500 mg PO BID #10 tab 10/17/18 [Rx] predniSONE 10 mg PO DAILY #30 tab 10/17/18 [Rx] Follow up Appointment(s)/Referral(s): Arjun Coelho MD [Primary Care Provider] - 1-2 days Activity/Diet/Wound Care/Special Instructions: [facility]
[2018-10-17 17:18] LABS: Glucose,Whole Blood 155 mg/dL (75-99)
[2018-10-17 17:20] LABS: Glucose,Whole Blood 123 mg/dL (75-99)
[2018-10-17 19:57] LABS: Glucose,Whole Blood 137 mg/dL (75-99)
[2018-10-17 21:32] VITALS: BP 136/64; TEMP 97.7
[2018-10-18] MEDS: methylPREDNISolone SOD SUCCI 125 MG/2 ML VIAL IV SCH ×2 (06:16→10:56)
[2018-10-18 06:56] LABS: Glucose,Whole Blood 120 mg/dL (75-99)
[2018-10-18] MEDS: INSULIN ASPART (NovoLOG) 100 UNIT/ML VIAL SQ SCH (07:20)
[2018-10-18] MEDS: IPRATROPIUM-ALBUTEROL 3 ML NEB INHALATION SCH (08:52)
[2018-10-18] MEDS: SYMBICORT 160-4.5 MCG INHALER INHALATION SCH (08:52)
[2018-10-18 09:07] VITALS: PULSE 82
[2018-10-18] MEDS: HYDROCHLOROTHIAZIDE 25 MG TAB PO SCH (10:09)
[2018-10-18] MEDS: AZITHROMYCIN 500 MG TAB PO SCH (10:09)
[2018-10-18] MEDS: SERTRALINE 100 MG TAB PO SCH (10:10)
[2018-10-18] MEDS: ATORVASTATIN 40 MG TAB PO SCH (10:10)
[2018-10-18] MEDS: PANTOPRAZOLE 40 MG TABLET PO SCH (10:10)
[2018-10-18] MEDS: ASPIRIN 81 MG PO SCH (10:10)
[2018-10-18] MEDS: ENOXAPARIN 40 MG/0.4 ML SYRINGE SQ SCH (10:10)
== END 2018-10-18 11:25 | DRG 190 ==
LOC: EC 17:43 → 3NMEDONC 19:06
PROVIDERS: ADMIT Hospitalist; ATTEND Hospitalist
DX: J44.0 Chronic obstructive pulmonary disease with (acute) lower respiratory infection (principal); J96.01 Acute respiratory failure with hypoxia; J96.02 Acute respiratory failure with hypercapnia; J18.9 Pneumonia, unspecified organism; S22.41XA Multiple fractures of ribs, right side, initial encounter for closed fracture; M48.56XA Collapsed vertebra, not elsewhere classified, lumbar region, initial encounter for fracture; J44.1 Chronic obstructive pulmonary disease with (acute) exacerbation; E11.40 Type 2 diabetes mellitus with diabetic neuropathy, unspecified; M06.9 Rheumatoid arthritis, unspecified; D64.9 Anemia, unspecified; G25.2 Other specified forms of tremor; I71.4 Abdominal aortic aneurysm, without rupture; F32.9 Major depressive disorder, single episode, unspecified; I10 Essential (primary) hypertension; I25.10 Atherosclerotic heart disease of native coronary artery without angina pectoris; H54.61 Unqualified visual loss, right eye, normal vision left eye; K21.9 Gastro-esophageal reflux disease without esophagitis; R26.9 Unspecified abnormalities of gait and mobility; L98.9 Disorder of the skin and subcutaneous tissue, unspecified; I25.2 Old myocardial infarction; R29.6 Repeated falls; Z99.81 Dependence on supplemental oxygen; Z79.51 Long term (current) use of inhaled steroids; Z79.82 Long term (current) use of aspirin; Z79.899 Other long term (current) drug therapy; Z87.891 Personal history of nicotine dependence; Z87.01 Personal history of pneumonia (recurrent); Z90.49 Acquired absence of other specified parts of digestive tract; Z86.79 Personal history of other diseases of the circulatory system; Z85.51 Personal history of malignant neoplasm of bladder; Z85.49 Personal history of malignant neoplasm of other male genital organs; Z98.41 Cataract extraction status, right eye; Z88.7 Allergy status to serum and vaccine; Z88.5 Allergy status to narcotic agent; W01.0XXA Fall on same level from slipping, tripping and stumbling without subsequent striking against object, initial encounter
CPT/HCPCS: 80048; 85025; 93005; 94640; 94760; 96365; 96375; 99284

== ENCOUNTER 2019-01-17 16:18 | Inpatient (IN) | payer MEDICARE, OTHER ==
[2019-01-17] MEDS ORDERED: IPRATROPIUM-ALBUTEROL 3 ML NEB INHALATION STA (16:49)
[2019-01-17] MEDS ORDERED: IPRATROPIUM-ALBUTEROL 3 ML NEB INHALATION PRN (16:52)
--- NOTE | 2019-01-17 16:52 | ED ---
General Adult HPI - General Chief complaint: Shortness of Breath Stated complaint: SOB Time Seen by Provider: 01/17/19 16:30 Source: EMS, RN notes reviewed Mode of arrival: EMS Limitations: no limitations - History of Present Illness Initial comments: This is a 79-year-old male who presents emergency department from [facility]. Patient arrives there for difficulty breathing earlier this morning. Patient was found to have an exacerbation of COPD and was given breathing treatments as well as steroids. Patient also had a CAT scan of his chest which did not show any acute findings. Patient states he did not have any chest pain however stone was mildly elevated at [place]. Patient denies any fever or chills. Patient denies any abdominal pain. Patient denies nausea vomiting. Patient denies any injury or trauma recently. Patient does have a suprapubic catheter. - Related Data Home Medications Medication Instructions Recorded Confirmed Albuterol Inhaler [Ventolin Hfa 1 - 2 puff INHALATION RT-Q6H PRN 12/03/17 10/15/18 Inhaler] Sertraline [Zoloft] 100 mg PO DAILY 12/03/17 10/16/18 Hydrochlorothiazide [Hydrodiuril] 25 mg PO DAILY 03/26/18 10/16/18 Omeprazole 20 mg PO DAILY 03/26/18 10/16/18 Pantoprazole Sodium [Protonix] 40 mg PO DAILY 10/15/18 10/15/18 Atorvastatin [Lipitor] 20 mg PO HS 10/16/18 10/16/18 Fluticasone/Salmeterol [Advair 1 puff INHALATION RT-BID 10/16/18 10/16/18 250-50 Diskus] Lactulose [Constulose] 10 gm PO DAILY 10/16/18 10/16/18 Menthol [Biofreeze] 1 applic TOPICAL QID PRN 10/16/18 10/16/18 Nitroglycerin Sl Tabs [Nitrostat] 0.4 mg SUBLINGUAL Q5M PRN 10/16/18 10/16/18 Silver Sulfadiazine 1 applic TOPICAL DAILY 10/16/18 10/16/18 Silver Sulfadiazine 1 applic TOPICAL DAILY PRN 10/16/18 10/16/18 Umeclidinium [place] [Incruse 1 puff INHALATION RT-DAILY 10/16/18 10/16/18 Ellipta] Previous Rx's Medication Instructions Recorded Cefuroxime Axetil [Ceftin] 500 mg PO BID #10 tab 10/17/18 predniSONE 10 mg PO DAILY #30 tab 10/17/18 Allergies Allergy/AdvReac Type Severity Reaction Status Date / Time influenza virus vaccine, Allergy Unknown Verified 01/17/19 17:14 specific meperidine [From Demerol] Allergy Unknown Verified 01/17/19 17:14 morphine Allergy Unknown Verified 01/17/19 17:14 ketorolac tromethamine AdvReac Severe GI Bleed Verified 01/17/19 17:14 [From Toradol] hydromorphone HCl AdvReac Hallucinati Verified 01/17/19 17:14 [From Dilaudid] ons Review of Systems ROS Statement: Those systems with pertinent positive or pertinent negative responses have been documented in the HPI. ROS Other: All systems not noted in ROS Statement are negative. Past Medical History Past Medical History: Asthma, Coronary Artery Disease (CAD), Chest Pain / Angina, COPD, Diabetes Mellitus, Eye Disorder, GERD/Reflux, Hypertension, Myocardial Infarction ([place]), Pneumonia, Rheumatoid Arthritis (RA), Skin Disorder Additional Past Medical History / Comment(s): partial blindness rt eye, hx bowel obstruction, hx pancreatitis, freq rashes, diet control diabetic, neuropathy penile cancer Last Myocardial Infarction Date:: 1994 History of Any Multi-Drug Resistant Organisms: None Reported Past Surgical History: Cholecystectomy, Pacemaker Additional Past Surgical History / Comment(s): Right Carotid endarterectomy, Right knee arthroscopy, henri shoulder rotator cuff, rt cataract, superpubic cath in place Past Anesthesia/Blood Transfusion Reactions: Motion Sickness Type of Cardiac Device: Unknown Device Placement Date:: 1998 Past Psychological History: Depression Smoking Status: Former smoker Past Alcohol Use History: Rare Past Drug Use History: None Reported - Past Family History Mother Family Medical History: No Reported History General Exam - General Exam Comments Initial Comments: GENERAL: Patient is well-developed and well-nourished. Patient is nontoxic and well- hydrated and is in mild distress. ENT: Neck is soft and supple. No significant lymphadenopathy is noted. Oropharynx is clear. Moist mucous membranes. Neck has full range of motion without eliciting any pain. EYES: The sclera were anicteric and conjunctiva were pink and moist. Extraocular movements were intact and pupils were equal round and reactive to light. Eyelids were unremarkable. PULMONARY: Patient has expiratory wheezing CARDIOVASCULAR: There is a regular rate and rhythm without any murmurs gallops or rubs. ABDOMEN: Soft and nontender with normal bowel sounds. SKIN: Skin is clear with no lesions or rashes and otherwise unremarkable. NEUROLOGIC: Patient is alert and oriented x3. Cranial nerves II through XII are grossly intact. Motor and sensory are also intact. Normal speech, volume and content. Symmetrical smile. MUSCULOSKELETAL: Normal extremities with adequate strength and full range of motion. LYMPHATICS: No significant lymphadenopathy is noted PSYCHIATRIC: Normal psychiatric evaluation. Limitations: no limitations Course Vital Signs 01/17/19 01/17/19 01/17/19 16:31 16:55 17:01 Temperature 99.4 F 98.9 F Pulse Rate 79 85 Respiratory 22 Rate Blood Pressure 140/77 O2 Sat by Pulse 90 L Oximetry 01/17/19 17:02 Temperature Pulse Rate 83 Respiratory Rate Blood Pressure O2 Sat by Pulse Oximetry Medical Decision Making - Medical Decision Making EKG shows normal sinus rhythm at 82 bpm DC interval is on a 50 QRS is 86 QT interval 390 QTC is 455. Patient's EKG shows some T-wave inversions in precordial leads which was seen on previous EKG. Disposition Clinical Impression: COPD with acute exacerbation Disposition: ADMITTED IP TO THIS HOSP Time of Disposition: 16:52
[2019-01-17] MEDS: methylPREDNISolone SOD SUCCI 125 MG/2 ML VIAL IV SCH ×2 (16:56→22:56)
[2019-01-17] MEDS ORDERED: PRIMIDONE 50 MG TAB PO SCH (18:15)
[2019-01-17] MEDS ORDERED: ALPRAZolam 0.25 MG TAB PO PRN (18:15)
[2019-01-17] MEDS ORDERED: NALOXONE 0.4 MG/ML 1 ML VIAL IV PRN (18:36)
[2019-01-17] MEDS ORDERED: HYDROcodone/APAP 5-325MG 1 EACH TAB PO PRN (18:36)
[2019-01-17] MEDS ORDERED: ACETAMINOPHEN TAB 325 MG TAB PO PRN (18:36)
--- NOTE | 2019-01-17 18:40 | P.HPIM ---
History of Present Illness H&P Date: 01/17/19 Chief Complaint: Chest pain, shortness of breath 79-year-old male with PMH of COPD on 5 L nasal cannula at home, CAD, diabetes mellitus, hypertension, rheumatoid arthritis presents to the ED for shortness of breath and chest pain. He is a transfer from [facility] for elevated troponins. Apparently, CAT scan was done of the chest which did not show any acute findings. Patient reports feeling short of breath since yesterday. He states that he woke up fine, got dressed and started walking down the street when his "breathing went". He also experience chest pain at that time. Chest pain is intermittent lasting for 5-20 minutes at a time and has occurred about 20 times since yesterday. Pain is midline and occasionally radiates to the stomach. Pain is 9 out of 10 in severity. There are no alleviating or aggravating factors. Patient denies any headaches, lower extremity edema, nausea, vomiting, fever, cough, changes in urination or bowel habits. No changes in appetite or weight. No dizziness, numbness/weakness/tingling of the extremities. In the ED, vital signs are stable. His O2 saturation was initially 90% which improved to 94% on 5 L nasal cannula. Review of Systems Pertinent positives and negatives as discussed in HPI, a complete review of systems was performed and all other systems are negative. Past Medical History Past Medical History: Asthma, Coronary Artery Disease (CAD), Chest Pain / Angina, COPD, Diabetes Mellitus, Eye Disorder, GERD/Reflux, Hypertension, Myocardial Infarction ([place]), Pneumonia, Rheumatoid Arthritis (RA), Skin Disorder Additional Past Medical History / Comment(s): partial blindness rt eye, hx bowel obstruction, hx pancreatitis, freq rashes, diet control diabetic, neuropathy penile cancer Last Myocardial Infarction Date:: 1994 History of Any Multi-Drug Resistant Organisms: None Reported Past Surgical History: Cholecystectomy, Pacemaker Additional Past Surgical History / Comment(s): Right Carotid endarterectomy, Right knee arthroscopy, henri shoulder rotator cuff, rt cataract, superpubic cath in place Past Anesthesia/Blood Transfusion Reactions: Motion Sickness Type of Cardiac Device: Unknown Device Placement Date:: 1998 Past Psychological History: Depression Smoking Status: Former smoker Past Alcohol Use History: Rare Past Drug Use History: None Reported - Past Family History Mother Family Medical History: No Reported History Medications and Allergies Home Medications Medication Instructions Recorded Confirmed Type Albuterol Inhaler [Ventolin Hfa 1 - 2 puff INHALATION RT-Q6H PRN 12/03/17 01/17/19 History Inhaler] Sertraline [Zoloft] 100 mg PO DAILY 12/03/17 01/17/19 History Hydrochlorothiazide [Hydrodiuril] 25 mg PO DAILY 03/26/18 01/17/19 History Omeprazole 20 mg PO DAILY 03/26/18 01/17/19 History Atorvastatin [Lipitor] 20 mg PO HS 10/16/18 01/17/19 History Fluticasone/Salmeterol [Advair 1 puff INHALATION RT-BID 10/16/18 01/17/19 History 250-50 Diskus] Lactulose [Constulose] 20 gm PO DAILY 10/16/18 01/17/19 History Menthol [Biofreeze] 1 applic TOPICAL QID PRN 10/16/18 01/17/19 History Nitroglycerin Sl Tabs [Nitrostat] 0.4 mg SUBLINGUAL Q5M PRN 10/16/18 01/17/19 History Umeclidinium [place] [Incruse 1 puff INHALATION RT-DAILY 10/16/18 01/17/19 History Ellipta] ALPRAZolam [Xanax] 0.25 mg PO HS PRN 01/17/19 01/17/19 History ALPRAZolam [Xanax] 0.25 mg PO TID 01/17/19 01/17/19 History Acetaminophen [Tylenol Arthritis] 650 mg PO Q6H PRN 01/17/19 01/17/19 History Aspirin EC [Ecotrin Low Dose] 81 mg PO DAILY 01/17/19 01/17/19 History Ferrous Sulfate [Feosol] 325 mg PO DAILY 01/17/19 01/17/19 History Ipratropium Nebulized [Atrovent 0.5 mg INHALATION RT-BID 01/17/19 01/17/19 History Nebulized 0.2 MG/ML] Ipratropium Nebulized [Atrovent 0.5 mg INHALATION RT-BID PRN 01/17/19 01/17/19 History Nebulized 0.2 MG/ML] Primidone [Mysoline] 50 mg PO Q12H 01/17/19 01/17/19 History Sennosides-Docusate Sodium 2 tab PO BID 01/17/19 01/17/19 History [Senokot-S] busPIRone HCl [Buspar] 5 mg PO BID 01/17/19 01/17/19 History Allergies Allergy/AdvReac Type Severity Reaction Status Date / Time influenza virus vaccine, Allergy Unknown Verified 01/17/19 17:14 specific meperidine [From Demerol] Allergy Unknown Verified 01/17/19 17:14 morphine Allergy Unknown Verified 01/17/19 17:14 ketorolac tromethamine AdvReac Severe GI Bleed Verified 01/17/19 17:14 [From Toradol] hydromorphone HCl AdvReac Hallucinati Verified 01/17/19 17:14 [From Dilaudid] ons Physical Exam Vitals: Vital Signs Temp Pulse Resp BP Pulse Ox 01/17/19 17:42 84 22 126/86 94 L 01/17/19 17:02 83 01/17/19 17:01 98.9 F 01/17/19 16:55 85 01/17/19 16:31 99.4 F 79 22 140/77 90 L Intake and Output 01/17/19 01/17/19 01/17/19 06:59 14:59 22:59 Other: Weight 79.379 kg General: [non toxic], [no distress], [appears at stated age], [appears dyspneic on 5 L NC] Derm: [warm], [dry] Head: [atraumatic], [normocephalic], [symmetric] Eyes: [EOMI], [no lid lag], [anicteric sclera] Mouth: [no lip lesion], [mucus membranes moist] Cardiovascular: [S1S2 reg], [tachycardia], [positive posterior tibial pulse bilateral], Lungs: [Decreased breath sounds bilateral with wheezing], [no rhonchi, no rales] , [no accessory muscle use] Abdominal: [soft], [ nontender to palpation], [no guarding], [no appreciable organomegaly] Ext: [no gross muscle atrophy], [no edema], [no contractures] Neuro: [ CN II-XI grossly intact], [no focal neuro deficits] Psych: [Alert], [oriented], [appropriate affect] Thrombosis Risk Factor Assmnt - Choose All That Apply Any of the Below Risk Factors Present?: Yes Each Factor Represents 1 point: Abnormal pulmonary function (COPD), Obesity (BMI >25) Each Risk Factor Represents 3 Points: Age 75 years or older Thrombosis Risk Factor Assessment Total Risk Factor Score: 5 Thrombosis Risk Factor Assessment Level: High Risk Assessment and Plan Assessment: Assessment and Plan Acute hypoxic respiratory failure secondary to COPD exacerbation COPD exacerbation Chest pain with elevated troponins Hypertension Diabetes mellitus Tremors On 5 L NC at baseline. Apparent CAT scan of the chest at [place] negative. Plans: O2 per NC to maintain O2 saturation greater than 88%. Start DuoNeb 4 times a day scheduled and as needed for shortness of breath and wheezing. Start Solu-Medrol 60 mg IV every 6 hours. We will follow pulmonology recommendations. Plans: Management as above. Possibly due to demand ischemia from hypoxia. Plans: Trend 3 Trop/EKG to rule out ACS. Telemetry monitoring. Pain management with Tylenol. Follow echocardiogram. BP 126/86. Plans: Continue hydrochlorothiazide. Monitor vitals, adjust medications as necessary. Stable. Plans: Insulin sliding scale. Regular Accu-Cheks. Hypoglycemic precautions. Plans: Continue primidone. DVT prophylaxis: [Heparin] Discussed with: [Patient] Anticipated discharge: [1-2 days] Anticipated discharge place: [Home] A total of [45] minutes was spent on the care of this complex patient more than 50% of the time was spent in counseling and care coordination.
[2019-01-17 18:55] LABS: Anisocytosis Marked; Basophils # (A) 0.1 k/uL (0-0.2); Basophils % (A) 1 %; Eosinophils # (A) 0.2 k/uL (0-0.7); Eosinophils % (A) 1 %; HCT 33.9 % (39.0-53.0); HGB 10.6 gm/dL (13.0-17.5); Hypochromasia Marked; Lymphocytes # (A) 0.7 k/uL (1.0-4.8); Lymphocytes % (A) 5 %; MCH 32.4 pg (25.0-35.0); MCHC 31.1 g/dL (31.0-37.0); MCV 104.3 fL (80.0-100.0); Macrocytosis Marked; Mean Platelet Volume 9.5; Monocytes # (A) 0.2 k/uL (0-1.0); Monocytes % (A) 1 %; Neutrophils # (A) 13.4 k/uL (1.3-7.7); Neutrophils % (A) 92 %; Platelet Count 316 k/uL (150-450); Poikilocytosis Slight; RBC 3.25 m/uL (4.30-5.90); RDW 24.6 % (11.5-15.5); WBC 14.6 k/uL (3.8-10.6)
[2019-01-17 19:06] LABS: ALT 12 U/L (21-72); AST 39 U/L (17-59); African American GFR (CKD) >90 (>60 ml/min/1.73 sqM); Albumin 4.1 g/dL (3.5-5.0); Alkaline Phosphatase 150 U/L (38-126); Anion Gap 9 mmol/L; Blood Urea Nitrogen 12 mg/dL (9-20); Calcium 8.7 mg/dL (8.4-10.2); Carbon Dioxide 25 mmol/L (22-30); Chloride 103 mmol/L (98-107); Glucose 92 mg/dL (74-99); Potassium 4.1 mmol/L (3.5-5.1); Sodium 137 mmol/L (137-145); Total Bilirubin 0.9 mg/dL (0.2-1.3); Total Protein 7.4 g/dL (6.3-8.2)
[2019-01-17] MEDS: IPRATROPIUM-ALBUTEROL 3 ML NEB INHALATION SCH ×2 (19:48→23:28)
[2019-01-17 21:35] LABS: Glucose,Whole Blood 195 mg/dL (75-99)
[2019-01-17] MEDS: SENNOSIDES-DOCUSATE SODIUM 1 EACH TAB PO SCH (21:45)
[2019-01-17] MEDS: PRIMIDONE 50 MG TAB PO SCH (21:45)
[2019-01-17] MEDS: busPIRone HCl 5 MG TAB PO SCH (21:45)
[2019-01-17] MEDS: ATORVASTATIN 20 MG TAB PO SCH (21:45)
[2019-01-17] MEDS: HEPARIN SODIUM,PORCINE 5,000 UNIT/ML 1 ML VIAL SQ SCH (21:45)
[2019-01-17] MEDS: ALPRAZolam 0.25 MG TAB PO SCH (21:46)
[2019-01-18] MEDS: IPRATROPIUM-ALBUTEROL 3 ML NEB INHALATION SCH ×6 (03:23→23:29)
[2019-01-18 06:19] LABS: Glucose,Whole Blood 160 mg/dL (75-99)
[2019-01-18] MEDS: methylPREDNISolone SOD SUCCI 125 MG/2 ML VIAL IV SCH ×4 (06:30→23:56)
[2019-01-18] MEDS: PANTOPRAZOLE 40 MG TABLET PO SCH (06:30)
[2019-01-18] MEDS: INSULIN ASPART (NovoLOG) 100 UNIT/ML VIAL SQ SCH ×3 (06:30→17:58)
--- NOTE | 2019-01-18 08:55 | ECHOF ---
Referral Reason:chest pain and sob MEASUREMENTS -------- HEIGHT: 172.7 cm WEIGHT: 79.4 kg BP: 119/66 RVIDd: 3.1 cm (< 3.3) IVSd: 1.2 cm (0.6 - 1.1) LVIDd: 4.0 cm (3.9 - 5.3) LVPWd: 1.1 cm (0.6 - 1.1) IVSs: 1.7 cm LVIDs: 1.8 cm LVPWs: 1.4 cm Ao Diam: 3.2 cm (2.0 - 3.7) AV Cusp: 1.9 cm (1.5 - 2.6) LA Diam: 2.7 cm (2.7 - 3.8) MV EXCURSION: 12.842 mm (> 18.000) MV EF SLOPE: 59 mm/s (70 - 150) EPSS: 0.6 cm MV E James: 0.82 m/s MV DecT: 186 ms MV A James: 1.08 m/s MV E/A Ratio: 0.76 RAP: 5.00 mmHg RVSP: 48.76 mmHg FINDINGS -------- Sinus rhythm. Pacerwire seen in RV and RA. This was a technically adequate study. The left ventricular size is normal. There is mild concentric left ventricular hypertrophy. Overa ll left ventricular systolic function is normal with, an EF between 55 - 60 %. The right ventricle is normal in size. The left atrial size is normal. The right atrial size is normal. Interatrial and interventricular septum intact. Aortic valve is trileaflet and is mildly thickened. The mitral valve leaflets are mildly thickened. Mild mitral annular calcification present. Mild m itral regurgitation is present. Mild tricuspid regurgitation present. There is mild pulmonary hypertension. The right ventricular systolic pressure, as measured by Doppler, is 48.76mmHg. Trace/mild (physiologic) pulmonic regurgitation. The aortic root size is normal. IVC Not well visulized. There is no pericardial effusion. CONCLUSIONS -------- 1. Sinus rhythm. 2. Pacerwire seen in RV and RA. 3. This was a technically adequate study. 4. The left ventricular size is normal. 5. There is mild concentric left ventricular hypertrophy. 6. Overall left ventricular systolic function is normal with, an EF between 55 - 60 %. 7. The left atrial size is normal. 8. Aortic valve is trileaflet and is mildly thickened. 9. The mitral valve leaflets are mildly thickened. 10. Mild mitral annular calcification present. 11. Mild mitral regurgitation is present. 12. Mild tricuspid regurgitation present. 13. There is mild pulmonary hypertension. 14. Trace/mild (physiologic) pulmonic regurgitation. 15. The aortic root size is normal. 16. There is no pericardial effusion. BUSINESS TEACHER: Deepika Tian RDCS
[2019-01-18] MEDS: SENNOSIDES-DOCUSATE SODIUM 1 EACH TAB PO SCH ×2 (09:10→21:34)
[2019-01-18] MEDS: SERTRALINE 100 MG TAB PO SCH (09:10)
[2019-01-18] MEDS: HYDROCHLOROTHIAZIDE 25 MG TAB PO SCH (09:11)
[2019-01-18] MEDS: busPIRone HCl 5 MG TAB PO SCH ×2 (09:12→21:34)
[2019-01-18] MEDS: FERROUS SULFATE 325 MG TAB PO SCH (09:12)
[2019-01-18] MEDS: ASPIRIN 81 MG PO SCH (09:12)
[2019-01-18] MEDS: PRIMIDONE 50 MG TAB PO SCH ×2 (09:12→21:34)
[2019-01-18] MEDS: ALPRAZolam 0.25 MG TAB PO SCH ×3 (09:12→21:34)
[2019-01-18] MEDS: HEPARIN SODIUM,PORCINE 5,000 UNIT/ML 1 ML VIAL SQ SCH ×2 (09:13→21:35)
[2019-01-18 11:56] LABS: Glucose,Whole Blood 132 mg/dL (75-99)
--- NOTE | 2019-01-18 12:27 | P.PN ---
Subjective Progress Note Date: 01/18/19 Principal diagnosis: COPD exacerbation, troponin elevation Patient was seen and examined. No acute events overnight. Patient reports great improvement in his breathing since yesterday. States that he was at [place] walking down the street, may not have had his portable oxygen on when he had a possible syncopal episode. He also describes symptoms of heartburn or chest pain during that time. Currently, he denies any chest pain, shortness of breath or palpitations. No nausea or vomiting. No fever or chills. Objective - Vital Signs Vital signs: Vital Signs Temp 97.4 F L 01/18/19 04:00 Pulse 76 01/18/19 08:41 Resp 18 01/18/19 08:00 BP 114/54 01/18/19 08:00 Pulse Ox 92 L 01/18/19 08:00 Intake & Output 01/17/19 01/18/19 01/18/19 18:59 06:59 18:59 Intake Total 237 Output Total 100 Balance -100 237 Weight 79.379 kg Intake: Oral 237 Output: Urine 100 Other: # Voids 400 - Exam General: [non toxic], [no distress], [appears at stated age], [appears dyspneic on 5 L NC] Derm: [warm], [dry] Head: [atraumatic], [normocephalic], [symmetric] Eyes: [EOMI], [no lid lag], [anicteric sclera] Mouth: [no lip lesion], [mucus membranes moist] Cardiovascular: [S1S2 reg], [tachycardia], [positive posterior tibial pulse bilateral], Lungs: [Decreased breath sounds bilateral], [no rhonchi, no rales] , [no accessory muscle use] Abdominal: [soft], [ nontender to palpation], [no guarding], [no appreciable organomegaly] Ext: [no gross muscle atrophy], [no edema], [no contractures] Neuro: [no focal neuro deficits] Psych: [Alert], [oriented], [pleasantly confused and forgetful] - Labs CBC & Chem 7: 01/17/19 16:52 01/17/19 16:52 Labs: Abnormal Lab Results - Last 24 Hours (Table) 01/17/19 01/17/19 01/17/19 Range/Units 16:52 16:52 21:02 WBC 14.6 H (3.8-10.6) k/uL RBC 3.25 L (4.30-5.90) m/uL Hgb 10.6 L (13.0-17.5) gm/dL Hct 33.9 L (39.0-53.0) % MCV 104.3 H (80.0-100.0) fL RDW 24.6 H (11.5-15.5) % Neutrophils # 13.4 H (1.3-7.7) k/uL Lymphocytes # 0.7 L (1.0-4.8) k/uL Macrocytosis Marked A POC Glucose (mg/dL) 195 H (75-99) mg/dL ALT 12 L (21-72) U/L Alkaline Phosphatase 150 H (38-126) U/L Troponin I (0.000-0.034) ng/mL 01/17/19 01/18/19 01/18/19 Range/Units 22:54 05:27 06:13 WBC (3.8-10.6) k/uL RBC (4.30-5.90) m/uL Hgb (13.0-17.5) gm/dL Hct (39.0-53.0) % MCV (80.0-100.0) fL RDW (11.5-15.5) % Neutrophils # (1.3-7.7) k/uL Lymphocytes # (1.0-4.8) k/uL Macrocytosis POC Glucose (mg/dL) 160 H (75-99) mg/dL ALT (21-72) U/L Alkaline Phosphatase (38-126) U/L Troponin I 0.095 H* 0.077 H* (0.000-0.034) ng/mL Assessment and Plan Assessment: Assessment and Plan Acute hypoxic respiratory failure secondary to COPD exacerbation COPD exacerbation Chest pain with elevated troponins Hypertension Diabetes mellitus Tremors On 5 L NC at baseline. CTA scan of the chest at [place] negative for PE. Plans: O2 per NC to maintain O2 saturation greater than 88%. Start DuoNeb 4 times a day scheduled and as needed for shortness of breath and wheezing. Start Solu-Medrol 60 mg IV every 6 hours. We will follow pulmonology recommendations. Plans: Management as above. Possibly due to demand ischemia from hypoxia. Troponin 0.28 at [place]. Tro ponin 0.095, 0.077 with EKG showing normal sinus rhythm with ST and T-wave changes. Echocardiogram shows EF 55-60% with mild concentric LVH. Plans: ACS ruled out. Telemetry monitoring. Pain management with Tylenol. Follow cardiology consult. BP 114/54. Plans: Continue hydrochlorothiazide. Monitor vitals, adjust medications as necessary. Stable. Plans: Insulin sliding scale. Regular Accu-Cheks. Hypoglycemic precautions. Plans: Continue primidone. Breathing improved. Currently on 6 L nasal cannula. Pulmonology on board. Cardiology consulted for elevated troponins. Pending clinical improvement. Patient appears slightly confused, probably at baseline with possible underlying dementia, social work to follow with sister as patient lives alone. PT and OT is consulted as well. Likely DC tomorrow.
--- NOTE | 2019-01-18 15:28 | P.CNPUL ---
History of Present Illness Consult date: 01/18/19 Requesting physician: Dereck Blum Reason for consult: dyspnea, COPD Chief complaint: Shortness of breath History of present illness: Is a very pleasant 79-year-old gentleman who has a history of chronic bronchial asthma, coronary artery disease, chronic obstructive pulmonary disease, diabetes Eder, GERD, hypertension, rheumatoid arthritis hyperlipidemia. He is maintained on Advair, Incruse, albuterol. He presented to [facility] with complaints of increasing shortness of breath, cough and congestion. CAT scan was reported as no acute findings. Troponin was mildly elevated and he was transferred here for further workup. He is seen today in consultation on the selective care unit. He is awake and alert in no acute distress. Resting flat in bed. He is currently maintaining O2 saturations in the low 90s on 3 L/m per nasal cannula. He's been afebrile. Hemodynamically stable. White count 14.6. Hemoglobin 10.6. Creatinine 0.76. Troponin 0.095. 0.077. He's been initiated on DuoNeb inhalations, IV Solu-Medrol. Review of Systems REVIEW OF SYSTEMS: CONSTITUTIONAL: Denies any recent significant weight loss or weight gain. EYES: Denies change in vision. EARS, NOSE, MOUTH, THROAT: Denies headaches, denies sore throat. CARDIOVASCULAR: Denies chest pain, palpitations or syncopal episodes. RESPIRATORY: Positive for shortness of breath, cough, congestion no hemoptysis. GASTROINTESTINAL: Denies change in appetite, denies abdominal pain GENITOURINARY: Denies hematuria, denies infections. MUSKULOSKELETAL: Denies pain, denies swelling. INTEGUMENTARY: Denies rash, denies eczema. NEUROLOGICAL: Denies recent memory loss, no recent seizure activity. PSYCHIATRIC: Denies anxiety, denies depression. HEMATOLOGIC/LYMPHATIC: Denies anemia, denies enlarged lymph nodes. Past Medical History Past Medical History: Asthma, Coronary Artery Disease (CAD), Chest Pain / Angina, COPD, Diabetes Mellitus, Eye Disorder, GERD/Reflux, Hypertension, Myocardial Infarction ([place]), Pneumonia, Rheumatoid Arthritis (RA), Skin Disorder Additional Past Medical History / Comment(s): partial blindness rt eye, hx bowel obstruction, hx pancreatitis, freq rashes, diet control diabetic, neuropathy penile cancer Last Myocardial Infarction Date:: 1994 History of Any Multi-Drug Resistant Organisms: None Reported Past Surgical History: Cholecystectomy, Pacemaker Additional Past Surgical History / Comment(s): Right Carotid endarterectomy, Right knee arthroscopy, henri shoulder rotator cuff, rt cataract, superpubic cath in place Past Anesthesia/Blood Transfusion Reactions: Motion Sickness Type of Cardiac Device: Unknown Device Placement Date:: 1998 Past Psychological History: Depression Smoking Status: Former smoker Past Alcohol Use History: Rare Past Drug Use History: None Reported - Past Family History Mother Family Medical History: No Reported History Medications and Allergies Home Medications Medication Instructions Recorded Confirmed Type Albuterol Inhaler [Ventolin Hfa 1 - 2 puff INHALATION RT-Q6H PRN 12/03/17 01/17/19 History Inhaler] Sertraline [Zoloft] 100 mg PO DAILY 12/03/17 01/17/19 History Hydrochlorothiazide [Hydrodiuril] 25 mg PO DAILY 03/26/18 01/17/19 History Omeprazole 20 mg PO DAILY 03/26/18 01/17/19 History Atorvastatin [Lipitor] 20 mg PO HS 10/16/18 01/17/19 History Fluticasone/Salmeterol [Advair 1 puff INHALATION RT-BID 10/16/18 01/17/19 History 250-50 Diskus] Lactulose [Constulose] 20 gm PO DAILY 10/16/18 01/17/19 History Menthol [Biofreeze] 1 applic TOPICAL QID PRN 10/16/18 01/17/19 History Nitroglycerin Sl Tabs [Nitrostat] 0.4 mg SUBLINGUAL Q5M PRN 10/16/18 01/17/19 History Umeclidinium [place] [Incruse 1 puff INHALATION RT-DAILY 10/16/18 01/17/19 History Ellipta] ALPRAZolam [Xanax] 0.25 mg PO HS PRN 01/17/19 01/17/19 History ALPRAZolam [Xanax] 0.25 mg PO TID 01/17/19 01/17/19 History Acetaminophen [Tylenol Arthritis] 650 mg PO Q6H PRN 01/17/19 01/17/19 History Aspirin EC [Ecotrin Low Dose] 81 mg PO DAILY 01/17/19 01/17/19 History Ferrous Sulfate [Feosol] 325 mg PO DAILY 01/17/19 01/17/19 History Ipratropium Nebulized [Atrovent 0.5 mg INHALATION RT-BID 01/17/19 01/17/19 History Nebulized 0.2 MG/ML] Ipratropium Nebulized [Atrovent 0.5 mg INHALATION RT-BID PRN 01/17/19 01/17/19 History Nebulized 0.2 MG/ML] Primidone [Mysoline] 50 mg PO Q12H 01/17/19 01/17/19 History Sennosides-Docusate Sodium 2 tab PO BID 01/17/19 01/17/19 History [Senokot-S] busPIRone HCl [Buspar] 5 mg PO BID 01/17/19 01/17/19 History Allergies Allergy/AdvReac Type Severity Reaction Status Date / Time influenza virus vaccine, Allergy Unknown Verified 01/17/19 17:14 specific meperidine [From Demerol] Allergy Unknown Verified 01/17/19 17:14 morphine Allergy Unknown Verified 01/17/19 17:14 ketorolac tromethamine AdvReac Severe GI Bleed Verified 01/17/19 17:14 [From Toradol] hydromorphone HCl AdvReac Hallucinati Verified 01/17/19 17:14 [From Dilaudid] ons Physical Exam Vitals: Vital Signs Temp Pulse Pulse Resp BP BP Pulse Ox 01/18/19 13:35 80 01/18/19 13:21 80 01/18/19 12:00 98.1 F 87 110/63 91 L 01/18/19 08:41 76 01/18/19 08:32 72 01/18/19 08:00 69 18 114/54 92 L 01/18/19 04:00 97.4 F L 82 20 119/66 97 01/18/19 03:35 62 16 01/18/19 03:24 60 16 01/17/19 23:55 69 20 113/63 91 L 01/17/19 23:40 63 16 01/17/19 23:30 63 16 01/17/19 20:00 97.7 F 78 24 119/60 93 L 01/17/19 19:58 88 01/17/19 19:52 95 01/17/19 19:49 82 01/17/19 17:42 84 22 126/86 94 L 01/17/19 17:02 83 01/17/19 17:01 98.9 F 01/17/19 16:55 85 01/17/19 16:31 99.4 F 79 22 140/77 90 L Intake and Output 01/18/19 01/18/19 01/18/19 06:59 14:59 22:59 Intake Total 477 Output Total 100 600 Balance -100 -123 Intake: Oral 477 Output: Urine 100 600 Other: # Voids 400 GENERAL EXAM: Alert, active, comfortable in no apparent distress. On 3 L nasal cannula. HEAD: Normocephalic. EYES: Normal reaction of pupils, equal size. NOSE: Clear with pink turbinates. THROAT: No erythema or exudates. NECK: No masses, no JVD. CHEST: No chest wall deformity. LUNGS: Equal air entry with faint end expiratory wheeze, diminished. CVS: S1 and S2 normal with no audible murmur, regular rhythm. ABDOMEN: No hepatosplenomegaly, normal bowel sounds, no guarding or rigidity. SPINE: No scoliosis or deformity SKIN: No rashes CENTRAL NERVOUS SYSTEM: No focal deficits, tone is normal in all 4 extremities. EXTREMITIES: There is no peripheral edema. No clubbing, no cyanosis. Peripheral pulses are intact. Results - Laboratory Findings CBC and BMP: 01/17/19 16:52 01/17/19 16:52 Abnormal lab findings: Abnormal Labs 01/17/19 01/17/19 01/17/19 16:52 16:52 21:02 WBC 14.6 H RBC 3.25 L Hgb 10.6 L Hct 33.9 L MCV 104.3 H RDW 24.6 H Neutrophils # 13.4 H Lymphocytes # 0.7 L Macrocytosis Marked A POC Glucose (mg/dL) 195 H ALT 12 L Alkaline Phosphatase 150 H Troponin I 01/17/19 01/18/19 01/18/19 22:54 05:27 06:13 WBC RBC Hgb Hct MCV RDW Neutrophils # Lymphocytes # Macrocytosis POC Glucose (mg/dL) 160 H ALT Alkaline Phosphatase Troponin I 0.095 H* 0.077 H* 01/18/19 11:46 WBC RBC Hgb Hct MCV RDW Neutrophils # Lymphocytes # Macrocytosis POC Glucose (mg/dL) 132 H ALT Alkaline Phosphatase Troponin I Assessment and Plan Assessment: Impression: #1 Acute on chronic hypoxemic respiratory failure secondary to an acute exacerbation of chronic obstructive pulmonary disease. #2 Troponin leak. Echocardiogram reveals preserved left ventricular systolic function ejection fraction 55-60%. #3 History of coronary artery disease. #4 Diabetes mellitus. #5 Hypertension. #6 Rheumatoid arthritis. #7 Hyperlipidemia. #8 gastroesophageal reflux disease. Plan: The patient was seen and evaluated by Dr. Anderson. Chest x-ray, CAT scan, labs all reviewed. We will continue with his COPD treatment with DuoNeb inhalations and IV site metros. Add Symbicort. No clear indication for antibiotics at this time. We will increase his activity as tolerated. Continue to follow and make further recommendations based on his clinical status. I, the cosigning physician, performed a history & physical examination of the patient. Lungs sounds with faint end expiratory wheeze. Maintaining good O2 saturations in the 90s on 3 L/m per nasal cannula. I discussed the assessment and plan of care with my nurse practitioner, Mai Hernandez. I attest to the above note as dictated by her. Time with Patient: Greater than 30
[2019-01-18 16:52] LABS: Glucose,Whole Blood 138 mg/dL (75-99)
[2019-01-18] MEDS: SYMBICORT 160-4.5 MCG INHALER INHALATION SCH (19:54)
[2019-01-18 20:46] LABS: Glucose,Whole Blood 208 mg/dL (75-99)
[2019-01-18] MEDS: ATORVASTATIN 20 MG TAB PO SCH (21:35)
[2019-01-19] MEDS: IPRATROPIUM-ALBUTEROL 3 ML NEB INHALATION SCH ×5 (03:08→20:50)
[2019-01-19] MEDS: methylPREDNISolone SOD SUCCI 125 MG/2 ML VIAL IV SCH ×2 (06:00→12:23)
[2019-01-19] MEDS: PANTOPRAZOLE 40 MG TABLET PO SCH (06:00)
[2019-01-19 06:29] LABS: Glucose,Whole Blood 114 mg/dL (75-99)
[2019-01-19] MEDS: INSULIN ASPART (NovoLOG) 100 UNIT/ML VIAL SQ SCH ×3 (06:30→16:56)
[2019-01-19 07:55] LABS: Anisocytosis Marked; HCT 31.8 % (39.0-53.0); HGB 9.9 gm/dL (13.0-17.5); Hypochromasia Marked; MCH 32.4 pg (25.0-35.0); MCHC 31.1 g/dL (31.0-37.0); Macrocytosis Marked; Mean Platelet Volume 8.7; Platelet Count 293 k/uL (150-450); Poikilocytosis Slight; RBC 3.06 m/uL (4.30-5.90); RDW 24.5 % (11.5-15.5); WBC 13.4 k/uL (3.8-10.6)
[2019-01-19 08:13] LABS: African American GFR (CKD) >90 (>60 ml/min/1.73 sqM); Anion Gap 5 mmol/L; Blood Urea Nitrogen 18 mg/dL (9-20); Carbon Dioxide 30 mmol/L (22-30); Chloride 103 mmol/L (98-107); Glucose 98 mg/dL (74-99); Potassium 4.1 mmol/L (3.5-5.1); Sodium 138 mmol/L (137-145)
[2019-01-19] MEDS: SYMBICORT 160-4.5 MCG INHALER INHALATION SCH ×2 (08:14→20:51)
[2019-01-19] MEDS: SERTRALINE 100 MG TAB PO SCH (09:00)
[2019-01-19] MEDS: SENNOSIDES-DOCUSATE SODIUM 1 EACH TAB PO SCH ×2 (09:00→20:38)
[2019-01-19] MEDS: FERROUS SULFATE 325 MG TAB PO SCH (09:00)
[2019-01-19] MEDS: HYDROCHLOROTHIAZIDE 25 MG TAB PO SCH (09:00)
[2019-01-19] MEDS: ASPIRIN 81 MG PO SCH (09:00)
[2019-01-19] MEDS: PRIMIDONE 50 MG TAB PO SCH ×2 (09:00→20:38)
[2019-01-19] MEDS: ALPRAZolam 0.25 MG TAB PO SCH ×3 (09:00→20:37)
[2019-01-19] MEDS: busPIRone HCl 5 MG TAB PO SCH ×2 (09:01→20:38)
[2019-01-19] MEDS: HEPARIN SODIUM,PORCINE 5,000 UNIT/ML 1 ML VIAL SQ SCH ×2 (09:01→20:37)
[2019-01-19 11:57] LABS: Glucose,Whole Blood 86 mg/dL (75-99)
--- NOTE | 2019-01-19 13:54 | CDI ---
Documentation Clarification Form Date: 01/19/2019 1:22:59 PM From: Lori Mccauley RN, CCDS Admit Date: 01/17/2019 4:53:00 PM Patient Name: Mitul Resendiz Visit Number: [id number] Discharge Date: ATTENTION: The Clinical Documentation Specialists (CDI) and [facility] Coding Staff appreciate your assistance in clarifying documentation. Please respond to the clarification below the line at the bottom and electronically sign. The CDI & [facility] Coding staff will review the response and follow-up if needed. Please note: Queries are made part of the Legal Health Record. If you have any questions, please contact the author of this message via ITS. Dr. Jeffery Zaidi The patient presented with complaints chest pain, shortness of breath. History/Risk Factors: COPD, CAD, Diabetes mellitus, Hypertension Clinical Indicators: 79-year-old male who was transferred due to chest pain and shortness of breath. He had elevated troponins. H&P and progress notes has documented possible due to demand ischemia from hypoxia. Lab findings: 0.095, 0.077, 0.071 EKG: normal sinus rhythm, ST &T wave abnormality, consider anterior ischemia Vital Signs: 140/77 79 22 99.4 90 % 5/L NC Treatment: Trend 3 Trop/EKG ACS ruled out ECHO: Mild pulmonary hypertension, mild mitral and tricuspid regurgitation present, EF Between 55-60% Monitor O@ Sat's (titrate) Duoneb's In your professional opinion, can you please clarify demand ischemia? Type 2 myocardial infarction Acute ischemic heart disease Other, please specify Unable to determine (Last Revision: October 2017) Type2 MI MTDD
--- NOTE | 2019-01-19 15:44 | P.PN ---
Subjective Progress Note Date: 01/19/19 Principal diagnosis: Acute on chronic hypoxemic respiratory failure secondary to an acute exacerbation of chronic obstructive pulmonary disease. Is a very pleasant 79-year-old gentleman who has a history of chronic bronchial asthma, coronary artery disease, chronic obstructive pulmonary disease, diabetes Eder, GERD, hypertension, rheumatoid arthritis hyperlipidemia. He is ma intained on Advair, Incruse, albuterol. He presented to [facility] with complaints of increasing shortness of breath, cough and congestion. CAT scan was reported as no acute findings. Troponin was mildly elevated and he was transferred here for further workup. He is seen today in consultation on the selective care unit. He is awake and alert in no acute distress. Resting flat in bed. He is currently maintaining O2 saturations in the low 90s on 3 L/m per nasal cannula. He's been afebrile. Hemodynamically stable. White count 14.6. Hemoglobin 10.6. Creatinine 0.76. Troponin 0.095. 0.077. He's been initiated on DuoNeb inhalations, IV Solu-Medrol. The patient is seen today 01/19/2019 follow-up on the selective care unit. He is currently awake and alert in no acute distress. Resting comfortably in bed. He denies any worsening shortness of breath, cough or congestion. He is maintaining good O2 saturations in the 90s on 4 L/m per nasal cannula. White count 13.4. Hemoglobin 9.9. Creatinine 0.82. He remains on DuoNeb inhalations, Symbicort, IV Solu-Medrol. He is quite anxious to go home. Objective - Vital Signs Vital signs: Vital Signs Temp 98.1 F 01/19/19 11:27 Pulse 80 01/19/19 12:04 Resp 20 01/19/19 11:27 BP 115/62 01/19/19 11:27 Pulse Ox 94 L 01/19/19 11:27 Intake & Output 01/18/19 01/19/19 01/19/19 18:59 06:59 18:59 Intake Total 737 118 Output Total 600 950 Balance 137 -950 118 Weight 73.8 kg Intake: IV 20 Sodium Chloride Flush 20 Oral 717 118 Output: Urine 600 950 - Exam GENERAL EXAM: Alert, active, comfortable in no apparent distress. On 4 L nasal cannula. HEAD: Normocephalic. EYES: Normal reaction of pupils, equal size. NOSE: Clear with pink turbinates. THROAT: No erythema or exudates. NECK: No masses, no JVD. CHEST: No chest wall deformity. LUNGS: Equal air entry with faint end expiratory wheeze, diminished. CVS: S1 and S2 normal with no audible murmur, regular rhythm. ABDOMEN: No hepatosplenomegaly, normal bowel sounds, no guarding or rigidity. SPINE: No scoliosis or deformity SKIN: No rashes CENTRAL NERVOUS SYSTEM: No focal deficits, tone is normal in all 4 extremities. EXTREMITIES: There is no peripheral edema. No clubbing, no cyanosis. Periph eral pulses are intact. - Labs CBC & Chem 7: 01/19/19 07:36 01/19/19 07:36 Labs: Abnormal Lab Results - Last 24 Hours (Table) 01/18/19 01/18/19 01/19/19 Range/Units 16:49 20:38 06:24 WBC (3.8-10.6) k/uL RBC (4.30-5.90) m/uL Hgb (13.0-17.5) gm/dL Hct (39.0-53.0) % MCV (80.0-100.0) fL RDW (11.5-15.5) % Macrocytosis POC Glucose (mg/dL) 138 H 208 H 114 H (75-99) mg/dL Troponin I (0.000-0.034) ng/mL 01/19/19 01/19/19 Range/Units 07:36 07:36 WBC 13.4 H (3.8-10.6) k/uL RBC 3.06 L (4.30-5.90) m/uL Hgb 9.9 L (13.0-17.5) gm/dL Hct 31.8 L (39.0-53.0) % MCV 104.0 H (80.0-100.0) fL RDW 24.5 H (11.5-15.5) % Macrocytosis Marked A POC Glucose (mg/dL) (75-99) mg/dL Troponin I 0.071 H* (0.000-0.034) ng/mL Assessment and Plan Assessment: Impression: #1 Acute on chronic hypoxemic respiratory failure secondary to an acute exacerbation of chronic obstructive pulmonary disease. #2 Troponin leak. Echocardiogram reveals preserved left ventricular systolic f unction ejection fraction 55-60%. #3 History of coronary artery disease. #4 Diabetes mellitus. #5 Hypertension. #6 Rheumatoid arthritis. #7 Hyperlipidemia. #8 gastroesophageal reflux disease. Plan: The patient was seen and evaluated by Dr. Anderson. We'll continue the current treatment plan. Transition IV Solu-Medrol to oral prednisone burst and taper. Home once cleared medically. We will increase his activity as tolerated. Continue to follow and make further recommendations based on his clinical status. I, the cosigning physician, performed a history & physical examination of the patient. Lungs sounds with faint end expiratory wheeze, diminished. Maintaining good O2 saturations in the 90s on 4 L/m per nasal cannula. I discussed the assessment and plan of care with my nurse practitioner, Mai Hernandez. I attest to the above note as dictated by her.
--- NOTE | 2019-01-19 16:15 | P.CRDCN ---
History of Present Illness Consult date: 01/18/19 History of present illness: This is a 79-year-old gentleman with history of coronary artery disease, COPD breath last, diabetes mellitus and also hypertensive cardiac vascular disease. Patient went to [facility] with increasing shortness of breath, cough and congestion. Computed tomography scan findings were not suggestive of any acute pathology. His troponin values are mildly elevated but the pattern is not consistent with acute myocardial injury pattern. Patient did not have any chest pain. Patient has history of sick sinus syndrome and had a permanent pacemaker insertion. He also has history of paroxysmal atrial fibrillation. Patient had a Lexiscan stress test in September of last year which was negative for ischemia. His echo Cardigan showed normal LV function with evidence of mild pulmonary hypertension. Patient also seemed to be somewhat confused. At this point we'll continue current medical therapy. From Cardec standpoint. Further recommend initially depend up with critical course Review of Systems As per the chart Past Medical History Past Medical History: Asthma, Coronary Artery Disease (CAD), Chest Pain / Angina, COPD, Diabetes Mellitus, Eye Disorder, GERD/Reflux, Hypertension, Myocardial Infarction (ME), Pneumonia, Rheumatoid Arthritis (RA), Skin Disorder Additional Past Medical History / Comment(s): partial blindness rt eye, hx bowel obstruction, hx pancreatitis, freq rashes, diet control diabetic, neuropathy penile cancer Last Myocardial Infarction Date:: 1994 History of Any Multi-Drug Resistant Organisms: None Reported Past Surgical History: Cholecystectomy, Pacemaker Additional Past Surgical History / Comment(s): Right Carotid endarterectomy, Right knee arthroscopy, henri shoulder rotator cuff, rt cataract, superpubic cath in place Past Anesthesia/Blood Transfusion Reactions: Motion Sickness Type of Cardiac Device: Unknown Device Placement Date:: 1998 Past Psychological History: Depression Smoking Status: Former smoker Past Alcohol Use History: Rare Past Drug Use History: None Reported - Past Family History Mother Family Medical History: No Reported History Medications and Allergies Home Medications Medication Instructions Recorded Confirmed Type Albuterol Inhaler [Ventolin Hfa 1 - 2 puff INHALATION RT-Q6H PRN 12/03/17 0 01/17/19 History Inhaler] Sertraline [Zoloft] 100 mg PO DAILY 12/03/17 01/17/19 History Hydrochlorothiazide [Hydrodiuril] 25 mg PO DAILY 03/26/18 01/17/19 History Omeprazole 20 mg PO DAILY 03/26/18 01/17/19 History Atorvastatin [Lipitor] 20 mg PO HS 10/16/18 01/17/19 History Fluticasone/Salmeterol [Advair 1 puff INHALATION RT-BID 10/16/18 01/17/19 History 250-50 Diskus] Lactulose [Constulose] 20 gm PO DAILY 10/16/18 01/17/19 History Menthol [Biofreeze] 1 applic TOPICAL QID PRN 10/16/18 01/17/19 History Nitroglycerin Sl Tabs [Nitrostat] 0.4 mg SUBLINGUAL Q5M PRN 10/16/18 01/17/19 History Umeclidinium [place] [Incruse 1 puff INHALATION RT-DAILY 10/16/18 01/17/19 Hist ory Ellipta] ALPRAZolam [Xanax] 0.25 mg PO HS PRN 01/17/19 01/17/19 History ALPRAZolam [Xanax] 0.25 mg PO TID 01/17/19 01/17/19 History Acetaminophen [Tylenol Arthritis] 650 mg PO Q6H PRN 01/17/19 01/17/19 History Aspirin EC [Ecotrin Low Dose] 81 mg PO DAILY 01/17/19 01/17/19 History Ferrous Sulfate [Feosol] 325 mg PO DAILY 01/17/19 01/17/19 History Ipratropium Nebulized [Atrovent 0.5 mg INHALATION RT-BID 01/17/19 01/17/19 History Nebulized 0.2 MG/ML] Ipratropium Nebulized [Atrovent 0.5 mg INHALATION RT-BID PRN 01/17/19 01/17/19 History Nebulized 0.2 MG/ML] Primidone [Mysoline] 50 mg PO Q12H 01/17/19 01/17/19 History Sennosides-Docusate Sodium 2 tab PO BID 01/17/19 01/17/19 History [Senokot-S] busPIRone HCl [Buspar] 5 mg PO BID 01/17/19 01/17/19 History Allergies Allergy/AdvReac Type Severity Reaction Status Date / Time influenza virus vaccine, Allergy Unknown Verified 01/17/19 17:14 specific meperidine [From Demerol] Allergy Unknown Verified 01/17/19 17:14 morphine Allergy Unknown Verified 01/17/19 17:14 ketorolac tromethamine AdvReac Severe GI Bleed Verified 01/17/19 17:14 [From Toradol] hydromorphone HCl AdvReac Hallucinati Verified 01/17/19 17:14 [From Dilaudid] ons Physical Exam Vitals: Vital Signs Temp Pulse Pulse Resp BP Pulse Ox 01/19/19 12:04 80 01/19/19 11:54 76 01/19/19 11:27 98.1 F 60 20 115/62 94 L 01/19/19 08:31 80 01/19/19 08:14 80 01/19/19 08:00 98.2 F 79 20 119/61 90 L 01/19/19 04:00 98.1 F 78 20 120/60 94 L 01/19/19 03:24 80 01/19/19 03:08 76 01/19/19 00:00 98 F 81 20 127/70 93 L 01/18/19 23:42 87 01/18/19 23:31 87 01/18/19 20:03 82 01/18/19 20:00 98.4 F 95 20 113/58 94 L 01/18/19 19:50 87 01/18/19 16:49 88 01/18/19 16:42 82 Intake and Output 01/19/19 01/19/19 01/19/19 06:59 14:59 22:59 Intake Total 318 Output Total 400 Balance -400 318 Intake: Oral 318 Output: Urine 400 Other: Weight 73.8 kg GENERAL EXAM: Patient is alert and oriented and doesn't appear to be in any acute distress HEENT: Normocephalic. Normal reaction of pupils, equal size, normal range of ext raocular motion. No erythema or exudates in the throat. NECK: No masses, no nuchal rigidity. CHEST: No chest wall deformity. LUNGS: Expiratory wheezes HEART: S1 and S2 normal with no audible mumurs or gallops. Regular rhythm, femorals equal on both sides.. ABDOMEN: No hepatosplenomegaly, normal bowel sounds, no guarding or rigidity. SKIN: No rashes CENTRAL NERVOUS SYSTEM: No focal deficits. EXTREMITIES: No cyanosis, clubbing or edema. Results 01/19/19 07:36 01/19/19 07:36 Cardiac Enzymes 01/19/19 Range/Units 07:36 Troponin I 0.071 H* (0.000-0.034) ng/mL CBC 01/19/19 Range/Units 07:36 WBC 13.4 H (3.8-10.6) k/uL RBC 3.06 L (4.30-5.90) m/uL Hgb 9.9 L (13.0-17.5) gm/dL Hct 31.8 L (39.0-53.0) % Plt Count 293 (150-450) k/uL Comprehensive Metabolic Panel 01/19/19 Range/Units 07:36 Sodium 138 (137-145) mmol/L Potassium 4.1 (3.5-5.1) mmol/L Chloride 103 (98-107) mmol/L Carbon Dioxide 30 (22-30) mmol/L BUN 18 (9-20) mg/dL Creatinine 0.82 (0.66-1.25) mg/dL Glucose 98 (74-99) mg/dL Calcium 9.0 (8.4-10.2) mg/dL Current Medications Generic Name Dose Route Start Last Admin Trade Name Freq PRN Reason Stop Dose Admin Acetaminophen 650 mg 01/17/19 18:36 Tylenol Tab PO Q6HR PRN Mild Pain or Fever > 100.5 Hydrocodone Bitart/Acetaminophen 1 each 01/17/19 18:36 01/18/19 21:33 Mccaskill 5-325 PO 1 each Q4HR PRN Administration Moderate Pain Albuterol/Ipratropium 3 ml 01/17/19 16:52 Duoneb 0.5 Mg-3 Mg/3 Ml Soln INHALATION RT-Q4H PRN Shortness Of Breath Or Wheezing Albuterol/Ipratropium 3 ml 01/17/19 20:00 01/19/19 11:54 Duoneb 0.5 Mg-3 Mg/3 Ml Soln INHALATION 3 ml RT-Q4H DOYLE Administration Alprazolam 0.25 mg 01/17/19 18:15 Xanax PO HS PRN Anxiety Alprazolam 0.25 mg 01/17/19 22:00 01/19/19 09:00 Xanax PO 0.25 mg TID DOYLE Administration Aspirin 81 mg 01/18/19 09:00 01/19/19 09:00 Aspirin PO 81 mg DAILY DOYLE Administration Atorvastatin Calcium 20 mg 01/17/19 21:00 01/18/19 21:35 Lipitor PO 20 mg HS DOYLE Administration Budesonide/Formoterol Fumarate 2 puff 01/18/19 20:00 01/19/19 08:14 Symbicort 160-4.5 Mcg Inhaler INHALATION 2 puff RT-BID DOYLE Administration Buspirone HCl 5 mg 01/17/19 21:00 01/19/19 09:01 Buspar PO 5 mg BID DOYLE Administration Ferrous Sulfate 325 mg 01/18/19 09:00 01/19/19 09:00 Feosol PO 325 mg DAILY DOYLE Administration Heparin Sodium (Porcine) 5,000 unit 01/17/19 21:00 01/19/19 09:01 Heparin SQ 5,000 unit Q12HR DOYLE Administration Hydrochlorothiazide 25 mg 01/18/19 09:00 01/19/19 09:00 Hydrodiuril PO 25 mg DAILY DOYLE Administration Insulin Aspart 0 unit 01/18/19 07:30 01/19/19 12:29 Novolog SQ Not Given AC-TID [facility] Protocol Naloxone HCl 0.2 mg 01/17/19 18:36 Narcan IV Q2M PRN Opioid Reversal Pantoprazole Sodium 40 mg 01/18/19 07:30 01/19/19 06:00 Protonix PO 40 mg AC-BRKFST DOYLE Administration Prednisone 40 mg 01/20/19 09:00 PO DAILY DOYLE Primidone 50 mg 01/17/19 21:00 01/19/19 09:00 Mysoline PO 50 mg Q12HR DOYLE Administration Senna/Docusate Sodium 2 each 01/17/19 21:00 01/19/19 09:00 Senokot-S PO 2 each BID DOYLE Administration Sertraline HCl 100 mg 01/18/19 09:00 01/19/19 09:00 Zoloft PO 100 mg DAILY DOYLE Administration Intake and Output 01/19/19 01/19/19 01/19/19 06:59 14:59 22:59 Intake Total 318 Output Total 400 Balance -400 318 Intake: Oral 318 Output: Urine 400 Other: Weight 73.8 kg 01/19/19 07:36 01/19/19 07:36 EKG Interpretations (text) Sinus rhythm with a diffuse nonspecific ST-T abnormalities. Rule out ischemia Assessment and Plan (1) COPD with acute exacerbation Current Visit: Yes Status: Acute Code(s): J44.1 - CHRONIC OBSTRUCTIVE PULMONARY DISEASE W (ACUTE) EXACERBATION SNOMED Code(s): 038863187 (2) History of peptic ulcer disease Current Visit: No Status: Acute Code(s): Z87.11 - PERSONAL HISTORY OF PEPTIC ULCER DISEASE SNOMED Code(s): 274027253 (3) Elevated troponin Current Visit: Yes Status: Acute Code(s): R74.8 - ABNORMAL LEVELS OF OTHER SERUM ENZYMES SNOMED Code(s): 121607914 (4) Essential hypertension Current Visit: Yes Status: Acute Code(s): I10 - ESSENTIAL (PRIMARY) HYPERTENSION SNOMED Code(s): 30374791 Plan: At this point we'll continue with current medical therapy. 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 Increase activity. If patient remains stable, no further cardiac intervention at this time. Follow-up in the office upon discharge
--- NOTE | 2019-01-19 16:17 | P.PN ---
Subjective Progress Note Date: 01/19/19 This is 79-year-old gentleman was admitted with increasing shortness of breath and exacerbation of COPD. Troponin levels are elevated but not consistent with acute myocardial injury pattern. Echo Cardigan showed preserved LV function. Patient remained stable without any chest pain. No further cardiac workup at this time. When patient is medically stable, patient could be discharged home. Follow-up in the office Objective - Vital Signs Vital signs: Vital Signs Temp 98.1 F 01/19/19 16:00 Pulse 81 01/19/19 16:00 Resp 20 01/19/19 16:00 BP 129/85 01/19/19 16:00 Pulse Ox 90 L 01/19/19 16:00 Intake & Output 01/18/19 01/19/19 01/19/19 18:59 06:59 18:59 Intake Total 737 318 Output Total 600 950 Balance 137 -950 318 Weight 73.8 kg Intake: IV 20 Sodium Chloride Flush 20 Oral 717 318 Output: Urine 600 950 - Exam GENERAL EXAM: Patient is alert and oriented and doesn't appear to be in any acute distress HEENT: Normocephalic. Normal reaction of pupils, equal size, normal range of extraocular motion. No erythema or exudates in the throat. NECK: No masses, no nuchal rigidity. CHEST: No chest wall deformity. LUNGS: Less wheezing HEART: S1 and S2 normal with no audible mumurs or gallops. Regular rhythm, femorals equal on both sides.. ABDOMEN: No hepatosplenomegaly, normal bowel sounds, no guarding or rigidity. SKIN: No rashes CENTRAL NERVOUS SYSTEM: No focal deficits. EXTREMITIES: No cyanosis, clubbing or edema. - Labs CBC & Chem 7: 01/19/19 07:36 01/19/19 07:36 Labs: Abnormal Lab Results - Last 24 Hours (Table) 01/18/19 01/18/19 01/19/19 Range/Units 16:49 20:38 06:24 WBC (3.8-10.6) k/uL RBC (4.30-5.90) m/uL Hgb (13.0-17.5) gm/dL Hct (39.0-53.0) % MCV (80.0-100.0) fL RDW (11.5-15.5) % Macrocytosis POC Glucose (mg/dL) 138 H 208 H 114 H (75-99) mg/dL Troponin I (0.000-0.034) ng/mL 01/19/19 01/19/19 Range/Units 07:36 07:36 WBC 13.4 H (3.8-10.6) k/uL RBC 3.06 L (4.30-5.90) m/uL Hgb 9.9 L (13.0-17.5) gm/dL Hct 31.8 L (39.0-53.0) % MCV 104.0 H (80.0-100.0) fL RDW 24.5 H (11.5-15.5) % Macrocytosis Marked A POC Glucose (mg/dL) (75-99) mg/dL Troponin I 0.071 H* (0.000-0.034) ng/mL Assessment and Plan (1) COPD with acute exacerbation Current Visit: Yes Status: Acute Code(s): J44.1 - CHRONIC OBSTRUCTIVE PULMONARY DISEASE W (ACUTE) EXACERBATION SNOMED Code(s): 303092533 (2) History of peptic ulcer disease Current Visit: No Status: Acute Code(s): Z87.11 - PERSONAL HISTORY OF PEPTIC ULCER DISEASE SNOMED Code(s): 309894337 (3) Elevated troponin Current Visit: Yes Status: Acute Code(s): R74.8 - ABNORMAL LEVELS OF OTHER SERUM ENZYMES SNOMED Code(s): 290781917 (4) Essential hypertension Current Visit: Yes Status: Acute Code(s): I10 - ESSENTIAL (PRIMARY) HYPERTENSION SNOMED Code(s): 31074009 Plan: Patient is critically stable. Denies any chest pain. No cardiac arrhythmias. Follow-up in the office
--- NOTE | 2019-01-19 16:30 | P.PN ---
Subjective Progress Note Date: 01/19/19 Principal diagnosis: Shortness of breath Patient was seen and examined. No acute events overnight. Patient reports improvement in his breathing, states that his back to baseline. He denies a chest pain, shortness of breath or palpitations. Saturating 90s on 4 L nasal cannula. Objective - Vital Signs Vital signs: Vital Signs Temp 98.1 F 01/19/19 16:00 Pulse 80 01/19/19 16:24 Resp 20 01/19/19 16:00 BP 129/85 01/19/19 16:00 Pulse Ox 90 L 01/19/19 16:00 Intake & Output 01/18/19 01/19/19 01/19/19 18:59 06:59 18:59 Intake Total 737 318 Output Total 600 950 Balance 137 -950 318 Weight 73.8 kg Intake: IV 20 Sodium Chloride Flush 20 Oral 717 318 Output: Urine 600 950 - Exam General: [non toxic], [no distress], [appears at stated age] Derm: [warm], [dry] Head: [atraumatic], [normocephalic], [symmetric] Eyes: [EOMI], [no lid lag], [anicteric sclera] Mouth: [no lip lesion], [mucus membranes moist] Cardiovascular: [S1S2 reg], [tachycardia], [positive posterior tibial pulse bi lateral], Lungs: [Decreased breath sounds bilateral], [no rhonchi, no rales] , [no accessory muscle use] Abdominal: [soft], [ nontender to palpation], [no guarding], [no appreciable organomegaly] Ext: [no gross muscle atrophy], [no edema], [no contractures] Neuro: [no focal neuro deficits] Psych: [Alert], [oriented], [pleasantly confused and forgetful] - Labs CBC & Chem 7: 01/19/19 07:36 01/19/19 07:36 Labs: Abnormal Lab Results - Last 24 Hours (Table) 01/18/19 01/18/19 01/19/19 Range/Units 16:49 20:38 06:24 WBC (3.8-10.6) k/uL RBC (4.30-5.90) m/uL Hgb (13.0-17.5) gm/dL Hct (39.0-53.0) % MCV (80.0-100.0) fL RDW (11.5-15.5) % Macrocytosis POC Glucose (mg/dL) 138 H 208 H 114 H (75-99) mg/dL Troponin I (0.000-0.034) ng/mL 01/19/19 01/19/19 Range/Units 07:36 07:36 WBC 13.4 H (3.8-10.6) k/uL RBC 3.06 L (4.30-5.90) m/uL Hgb 9.9 L (13.0-17.5) gm/dL Hct 31.8 L (39.0-53.0) % MCV 104.0 H (80.0-100.0) fL RDW 24.5 H (11.5-15.5) % Macrocytosis Marked A POC Glucose (mg/dL) (75-99) mg/dL Troponin I 0.071 H* (0.000-0.034) ng/mL Assessment and Plan Plan: Assessment and Plan Acute hypoxic respiratory failure secondary to COPD exacerbation COPD exacerbation Chest pain with elevated troponins Hypertension Diabetes mellitus Tremors On 5 L NC at baseline. CTA scan of the chest at [place] negative for PE. Plans: O2 per NC to maintain O2 saturation greater than 88%. Start DuoNeb 4 times a day scheduled and as needed for shortness of breath and wheezing. Start Solu-Medrol 60 mg IV every 6 hours. We will follow pulmonology recommendations. Plans: Management as above. Possibly due to demand ischemia from hypoxia. Troponin 0.28 at [place]. Troponin 0.095, 0.077 with EKG showing normal sinus rhythm with ST and T-wave changes. Echocardiogram shows EF 55-60% with mild concentric LVH. Plans: ACS ruled out. Telemetry monitoring. Pain management with Tylenol. Follow cardiology consult. BP 129/85. Plans: Continue hydrochlorothiazide. Monitor vitals, adjust medications as necessary. Stable. Plans: Insulin sliding scale. Regular Accu-Cheks. Hypoglycemic precautions. Plans: Continue primidone. Breathing improved. Currently on 5 L nasal cannula. Pulmonology on board. Cardiology consulted for elevated troponins. Cleared by pulmonology and cardiology late. Will DC tomorrow morning back to [facility] at [place]. Will need assistance from social work.
[2019-01-19 16:43] LABS: Glucose,Whole Blood 125 mg/dL (75-99)
[2019-01-19 20:30] LABS: Glucose,Whole Blood 131 mg/dL (75-99)
[2019-01-19] MEDS: ATORVASTATIN 20 MG TAB PO SCH (20:37)
[2019-01-20] MEDS: IPRATROPIUM-ALBUTEROL 3 ML NEB INHALATION SCH ×4 (01:04→11:17)
[2019-01-20 01:15] VITALS: RESP 18
[2019-01-20 06:13] LABS: Glucose,Whole Blood 118 mg/dL (75-99)
[2019-01-20] MEDS: INSULIN ASPART (NovoLOG) 100 UNIT/ML VIAL SQ SCH ×2 (06:18→11:25)
[2019-01-20] MEDS: PANTOPRAZOLE 40 MG TABLET PO SCH (06:18)
[2019-01-20] MEDS: SYMBICORT 160-4.5 MCG INHALER INHALATION SCH (07:39)
--- NOTE | 2019-01-20 07:45 | P.DS ---
Providers Date of admission: 01/17/19 16:53 Expected date of discharge: 01/20/19 Attending physician: Deerck Blum MD Consults: 01/17/19 16:52 Consult Physician Routine Consulting Provider: Gris Anderson Consult Reason/Comments: COPD exacerbation Do you want consulting provider notified?: Yes 01/18/19 07:23 Consult Physician Routine Consulting Provider: Aileen Hwang Consult Reason/Comments: Troponin elevation Do you want consulting provider notified?: Yes Primary care physician: Stated None Hospital Course: 79-year-old male with PMH of COPD on 5 L nasal cannula at home, CAD, diabetes mellitus, hypertension, rheumatoid arthritis presents to the ED for shortness of breath and chest pain. He is a transfer from [facility] for elevated troponins. Apparently, CAT scan was done of the chest which did not show any acute findings. Patient reports feeling short of breath since yesterday. He states that he woke up fine, got dressed and started walking down the street when his "breathing went". He also experience chest pain at that time. Chest pain is intermittent lasting for 5-20 minutes at a time and has occurred about 20 times since yesterday. Pain is midline and occasionally radiates to the stomach. Pain is 9 out of 10 in severity. There are no alleviating or aggravating factors. Patient denies any headaches, lower extremity edema, nausea, vomiting, fever, cough, changes in urination or bowel habits. No changes in appetite or weight. No dizziness, numbness/weakness/tingling of the extremities. In the ED, vital signs are stable. His O2 saturation was initially 90% which improved to 94% on 5 L nasal cannula. Patient was diagnosed with acute hypoxic respiratory failure secondary to COPD exacerbation. Computed tomography scan of the chest at heart repeat was negative for PE. He was given O2 per NC to maintain O2 saturation greater than 88%. Started on duo nebs 4 times a day scheduled and as stated for shortness of breath and wheezing. Patient was also started on Solu-Medrol IV. Pulmonology was consulted and followed the patient. With regard to his chest pain, this is thought to be secondary to demand ischemia from hypoxia. Troponin was 0.28 at [place]. Troponin here were 0.095, 0.077 with EKG showing normal sinus rhythm with ST and T-wave changes. Echocardiogram showed EF 55-60% with mild concentric LVH. Acute coronary syndrome was ruled out. Cardiology was consulted and recommended outpatient follow-up. Otherwise, his home medications were resumed for hypertension and diabetes mellitus along with essential tremors. Patient was seen and examined. No acute events overnight. Patient reports breathing back to baseline. He denies any chest pain or palpitations. No nausea vomiting. No fever or chills. Looking forward going home. General: [non toxic], [no distress], [appears at stated age] Derm: [warm], [dry] Head: [atraumatic], [normocephalic], [symmetric] Eyes: [EOMI], [no lid lag], [anicteric sclera] Mouth: [no lip lesion], [mucus membranes moist] Cardiovascular: [S1S2 reg], [no murmur], [positive posterior tibial pulse bilateral], Lungs: [Decreased breath sounds bilateral], [no rhonchi, no rales] , [no accessory muscle use] Abdominal: [soft], [ nontender to palpation], [no guarding], [no appreciable organomegaly] Ext: [no gross muscle atrophy], [no edema], [no contractures] Neuro: [no focal neuro deficits] Psych: [Alert], [oriented], [pleasantly confused and forgetful] Assessment and Plan Acute hypoxic respiratory failure secondary to COPD exacerbation COPD exacerbation Chest pain with elevated troponins Hypertension Diabetes mellitus Tremors On 5 L NC at baseline. CTA scan of the chest at [place] negative for PE. Plans: O2 per NC to maintain O2 saturation greater than 88%. Start DuoNeb 4 times a day scheduled and as needed for shortness of breath and wheezing. Start Solu-Medrol 60 mg IV every 6 hours. We will follow pulmonology recommendations. Plans: Management as above. Possibly due to demand ischemia from hypoxia. Troponin 0.28 at [place]. Troponin 0.095, 0.077, 0.071 with EKG showing normal sinus rhythm with ST and T- wave changes. Echocardiogram shows EF 55-60% with mild concentric LVH. Plans: ACS ruled out. Telemetry monitoring. Pain management with Tylenol. Follow cardiology consult. BP 130/88. Plans: Continue hydrochlorothiazide. Monitor vitals, adjust medications as necessary. Stable. Plans: Insulin sliding scale. Regular Accu-Cheks. Hypoglycemic precautions. Plans: Continue primidone. Breathing improved. Currently on 5 L nasal cannula. Pulmonology on board. Cardiology consulted for elevated troponins. Cleared by pulmonology and cardiology. DC today to [facility] in [place]. Pertinent Studies: Echocardiogram Patient Condition at Discharge: Stable Plan - Discharge Summary Discharge Rx Participant: No New Discharge Prescriptions: New predniSONE See Taper PO DIRECTED #30 tab Continue Albuterol Inhaler [Ventolin Hfa Inhaler] 1 - 2 puff INHALATION RT-Q6H PRN PRN Reason: Shortness Of Breath Sertraline [Zoloft] 100 mg PO DAILY Omeprazole 20 mg PO DAILY Hydrochlorothiazide [Hydrodiuril] 25 mg PO DAILY Nitroglycerin Sl Tabs [Nitrostat] 0.4 mg SUBLINGUAL Q5M PRN PRN Reason: Chest Pain Menthol [Biofreeze] 1 applic TOPICAL QID PRN PRN Reason: Pain Umeclidinium [place] [Incruse Ellipta] 1 puff INHALATION RT-DAILY Lactulose [Constulose] 20 gm PO DAILY Fluticasone/Salmeterol [Advair 250-50 Diskus] 1 puff INHALATION RT-BID Atorvastatin [Lipitor] 20 mg PO HS Primidone [Mysoline] 50 mg PO Q12H busPIRone HCl [Buspar] 5 mg PO BID Ipratropium Nebulized [Atrovent Nebulized 0.2 MG/ML] 0.5 mg INHALATION RT-BID Ipratropium Nebulized [Atrovent Nebulized 0.2 MG/ML] 0.5 mg INHALATION RT-BID PRN PRN Reason: Shortness Of Breath Ferrous Sulfate [Iron (65 MG Elemental)] 325 mg PO DAILY Acetaminophen [Tylenol Arthritis] 650 mg PO Q6H PRN PRN Reason: Fever And/ Or Pain ALPRAZolam [Xanax] 0.25 mg PO TID Sennosides-Docusate Sodium [Senokot-S] 2 tab PO BID ALPRAZolam [Xanax] 0.25 mg PO HS PRN PRN Reason: Anxiety Aspirin EC [Ecotrin Low Dose] 81 mg PO DAILY Discharge Medication List Albuterol Inhaler [Ventolin Hfa Inhaler] 1 - 2 puff INHALATION RT-Q6H PRN 12/03/17 [History] Sertraline [Zoloft] 100 mg PO DAILY 12/03/17 [History] Hydrochlorothiazide [Hydrodiuril] 25 mg PO DAILY 03/26/18 [History] Omeprazole 20 mg PO DAILY 03/26/18 [History] Atorvastatin [Lipitor] 20 mg PO HS 10/16/18 [History] Fluticasone/Salmeterol [Advair 250-50 Diskus] 1 puff INHALATION RT-BID 10/16/18 [History] Lactulose [Constulose] 20 gm PO DAILY 10/16/18 [History] Menthol [Biofreeze] 1 applic TOPICAL QID PRN 10/16/18 [History] Nitroglycerin Sl Tabs [Nitrostat] 0.4 mg SUBLINGUAL Q5M PRN 10/16/18 [History] Umeclidinium [place] [Incruse Ellipta] 1 puff INHALATION RT-DAILY 10/16/18 [History] ALPRAZolam [Xanax] 0.25 mg PO HS PRN 01/17/19 [History] ALPRAZolam [Xanax] 0.25 mg PO TID 01/17/19 [History] Acetaminophen [Tylenol Arthritis] 650 mg PO Q6H PRN 01/17/19 [History] Aspirin EC [Ecotrin Low Dose] 81 mg PO DAILY 01/17/19 [History] Ferrous Sulfate [Iron (65 MG Elemental)] 325 mg PO DAILY 01/17/19 [History] Ipratropium Nebulized [Atrovent Nebulized 0.2 MG/ML] 0.5 mg INHALATION RT-BID 01/17/19 [History] Ipratropium Nebulized [Atrovent Nebulized 0.2 MG/ML] 0.5 mg INHALATION RT-BID PRN 01/17/19 [History] Primidone [Mysoline] 50 mg PO Q12H 01/17/19 [History] Sennosides-Docusate Sodium [Senokot-S] 2 tab PO BID 01/17/19 [History] busPIRone HCl [Buspar] 5 mg PO BID 01/17/19 [History] predniSONE See Taper PO DIRECTED #30 tab 01/20/19 [Rx] Follow up Appointment(s)/Referral(s): None,Stated [Primary Care Provider] - 1-2 days Gris Anderson MD [STAFF PHYSICIAN] - 1 Week Patient Instructions/Handouts: COPD (Chronic Obstructive Pulmonary Disease) (DC) Activity/Diet/Wound Care/Special Instructions: [facility] Diet: Heart healthy Follow-up with PCP within 1-2 days of discharge. Follow-up with pulmonology within 1 week of discharge. Take all medications as advised. Discharge Disposition: HOME SELF-CARE
[2019-01-20] MEDS: SENNOSIDES-DOCUSATE SODIUM 1 EACH TAB PO SCH (08:13)
[2019-01-20] MEDS: busPIRone HCl 5 MG TAB PO SCH (08:13)
[2019-01-20] MEDS: FERROUS SULFATE 325 MG TAB PO SCH (08:13)
[2019-01-20] MEDS: HYDROCHLOROTHIAZIDE 25 MG TAB PO SCH (08:13)
[2019-01-20] MEDS: ALPRAZolam 0.25 MG TAB PO SCH (08:13)
[2019-01-20] MEDS: ASPIRIN 81 MG PO SCH (08:15)
[2019-01-20] MEDS: SERTRALINE 100 MG TAB PO SCH (08:15)
[2019-01-20] MEDS: PRIMIDONE 50 MG TAB PO SCH (08:15)
[2019-01-20] MEDS: HEPARIN SODIUM,PORCINE 5,000 UNIT/ML 1 ML VIAL SQ SCH (08:16)
[2019-01-20 08:51] VITALS: BP 144/72; TEMP 97.6
[2019-01-20] MEDS ORDERED: predniSONE 20 MG TAB PO SCH (09:00)
--- NOTE | 2019-01-20 10:44 | P.PN ---
Subjective Progress Note Date: 01/20/19 Principal diagnosis: Acute on chronic hypoxemic respiratory failure secondary to an acute exacerbation of chronic obstructive pulmonary disease. Is a very pleasant 79-year-old gentleman who has a history of chronic bronchial asthma, coronary artery disease, chronic obstructive pulmonary disease, diabetes Eder, GERD, hypertension, rheumatoid arthritis hyperlipidemia. He is ma intained on Advair, Incruse, albuterol. He presented to [facility] with complaints of increasing shortness of breath, cough and congestion. CAT scan was reported as no acute findings. Troponin was mildly elevated and he was transferred here for further workup. He is seen today in consultation on the selective care unit. He is awake and alert in no acute distress. Resting flat in bed. He is currently maintaining O2 saturations in the low 90s on 3 L/m per nasal cannula. He's been afebrile. Hemodynamically stable. White count 14.6. Hemoglobin 10.6. Creatinine 0.76. Troponin 0.095. 0.077. He's been initiated on DuoNeb inhalations, IV Solu-Medrol. The patient is seen today 01/19/2019 follow-up on the selective care unit. He is currently awake and alert in no acute distress. Resting comfortably in bed. He denies any worsening shortness of breath, cough or congestion. He is maintaining good O2 saturations in the 90s on 4 L/m per nasal cannula. White count 13.4. Hemoglobin 9.9. Creatinine 0.82. He remains on DuoNeb inhalations, Symbicort, IV Solu-Medrol. He is quite anxious to go home. Patient is seen today 01/20/2018 in follow-up on the selective care unit. He is currently sitting up in a chair at the bedside. Awake and alert in no acute distress. He denies any worsening shortness of breath, cough or congestion. Maintaining O2 saturations in the 90s on 6 L/m per nasal cannula. He is currently afebrile. Objective - Vital Signs Vital signs: Vital Signs Temp 97.6 F 01/20/19 08:00 Pulse 65 01/20/19 08:00 Resp 18 01/20/19 08:00 BP 144/72 01/20/19 08:00 Pulse Ox 94 L 01/20/19 08:00 Intake & Output 0601/20/19 01/20/19 18:59 06:59 18:59 Intake Total 554 240 160 Output Total 600 550 Balance -46 -310 160 Weight 79.5 kg Intake: Oral 554 240 160 Output: Urine 600 550 Other: Voiding Method Indwelling Catheter # Voids 1 - Exam GENERAL EXAM: Alert, active, comfortable in no apparent distress. On 6 L nasal cannula. HEAD: Normocephalic. EYES: Normal reaction of pupils, equal size. NOSE: Clear with pink turbinates. THROAT: No erythema or exudates. NECK: No masses, no JVD. CHEST: No chest wall deformity. LUNGS: Equal air entry with faint end expiratory wheeze, diminished. CVS: S1 and S2 normal with no audible murmur, regular rhythm. ABDOMEN: Supra pubic catheter in place No hepatosplenomegaly, normal bowel sounds, no guarding or rigidity. SPINE: No scoliosis or deformity SKIN: No rashes CENTRAL NERVOUS SYSTEM: No focal deficits, tone is normal in all 4 extremities. EXTREMITIES: There is no peripheral edema. No clubbing, no cyanosis. Peripheral pulses are intact. - Labs CBC & Chem 7: 01/19/19 07:36 01/19/19 07:36 Labs: Abnormal Lab Results - Last 24 Hours (Table) 01/19/19 01/19/19 01/20/19 Range/Units 16:38 20:28 06:11 POC Glucose (mg/dL) 125 H 131 H 118 H (75-99) mg/dL Assessment and Plan Assessment: Impression: #1 Acute on chronic hypoxemic respiratory failure secondary to an acute exacerbation of chronic obstructive pulmonary disease. #2 Troponin leak. Echocardiogram reveals preserved left ventricular systolic function ejection fraction 55-60%. #3 History of coronary artery disease. #4 Diabetes mellitus. #5 Hypertension. #6 Rheumatoid arthritis. #7 Hyperlipidemia. #8 gastroesophageal reflux disease. Plan: The patient was seen and evaluated by Dr. Anderson. He is cleared for discharge from the pulmonary standpoint. To be transferred [facility] via EMS today. Continue home oxygen. Continue bronchodilators, Symbicort, prednisone taper. I, the cosigning physician, performed a history & physical examination of the patient. Lungs sounds with faint end expiratory wheeze, diminished. Maintaining good O2 saturations in the 90s on 6 L/m per nasal cannula. I discussed the assessment and plan of care with my nurse practitioner, Mai Hernandez. I attest to the above note as dictated by her.
[2019-01-20 11:23] LABS: Glucose,Whole Blood 97 mg/dL (75-99)
[2019-01-20 11:29] VITALS: PULSE 72
== END 2019-01-20 14:27 | DRG 190 ==
LOC: EC 16:18 → 3SCARD 16:53
PROVIDERS: ADMIT Family Medicine; ATTEND Family Medicine
DX: J44.1 Chronic obstructive pulmonary disease with (acute) exacerbation (principal); J96.21 Acute and chronic respiratory failure with hypoxia; I27.20 Pulmonary hypertension, unspecified; I48.0 Paroxysmal atrial fibrillation; E11.40 Type 2 diabetes mellitus with diabetic neuropathy, unspecified; I11.9 Hypertensive heart disease without heart failure; M06.9 Rheumatoid arthritis, unspecified; E78.5 Hyperlipidemia, unspecified; F32.9 Major depressive disorder, single episode, unspecified; G25.0 Essential tremor; H54.61 Unqualified visual loss, right eye, normal vision left eye; I25.10 Atherosclerotic heart disease of native coronary artery without angina pectoris; I25.2 Old myocardial infarction; K21.9 Gastro-esophageal reflux disease without esophagitis; R77.9 Abnormality of plasma protein, unspecified; R07.9 Chest pain, unspecified; Z79.82 Long term (current) use of aspirin; Z79.899 Other long term (current) drug therapy; Z79.52 Long term (current) use of systemic steroids; Z88.5 Allergy status to narcotic agent; Z88.7 Allergy status to serum and vaccine; Z95.0 Presence of cardiac pacemaker; Z87.11 Personal history of peptic ulcer disease; Z87.891 Personal history of nicotine dependence; Z85.49 Personal history of malignant neoplasm of other male genital organs; Z87.01 Personal history of pneumonia (recurrent); Z90.49 Acquired absence of other specified parts of digestive tract; Z98.41 Cataract extraction status, right eye; Z96.1 Presence of intraocular lens
CPT/HCPCS: 80048; 80053; 84484; 85025; 85027; 93005; 93306; 94640; 96374; 99285